=== PATIENT | male | born 1970 | race Caucasian/White ===

== ENCOUNTER → 2025-03-14 15:11 | Outpatient (BNVA) | payer OTHER, SELFPAY | PROVIDERS: PCP Internal Medicine; Visit Provider Physician Assistant Medical | DX: S66.106A Unspecified injury of flexor muscle, fascia and tendon of right little finger at wrist and hand level, initial encounter (principal); X50.3XXA Overexertion from repetitive movements, initial encounter | CPT/HCPCS: 29125; 73130; 99204 ==

== ENCOUNTER → 2025-03-17 11:52 | Outpatient (BNVA) | payer OTHER, SELFPAY | PROVIDERS: PCP Internal Medicine; Visit Provider Physician Assistant Medical | DX: S66.106A Unspecified injury of flexor muscle, fascia and tendon of right little finger at wrist and hand level, initial encounter (principal); X50.3XXA Overexertion from repetitive movements, initial encounter | CPT/HCPCS: 99213 ==

== ENCOUNTER 2025-03-25 12:33 | Outpatient (AMB) | payer OTHER, BC, SELFPAY ==
--- OUTSIDE RECORDS SUMMARY | 2024-06-20 05:00 | XMS_ITS | Encounter Summary ---
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 This section includes the names of all active insurance providers for the patient. Insurance Provider Type of Coverage Plan Name Start of Policy Coverage End of Policy Coverage Group Number Member ID Insurance Provider's Telephone Number Policy Pryor's Name Patient's Relationship to Policy Pryor [facility] CE ORGANIZAT ION SELENA CARMEN L ACTIV E Mar 25, 2021 [id number] [phone] VIVIANE TOLEDO PATIENT BCBS [place] HIGH DEDUCTIBL E HEALTH PLAN SELENA [place] ACTIV E HP Jun 21, 2021 [id number] [phone] VIVIANE TOLEDO PATIENT BCBS [facility] CE ORGANIZ NETWO RK BLUE NEW EN* January 23, 2013 [id number] [phone] VIVIANE TOLEDO PATIENT BCBS [facility] CE ORGANIZ [facility] SHARE ACTIV E January 23, 2013 [id number] VIVIANE TOLEDO PATIENT [employer] ([id number]) PRESCRIPT ION L4TA* January 23, 2013 [id number] VIVIANE TOLEDO PATIENT Selected Encounter This section includes the information on record at [place] for the Encounter. Date/Time Encounter Type Encounter Description Reason Provider Source Jun 20, 2024 09:00 AM OFFICE O/P EST MOD 30 MIN PRIMARY CARE/MEDICINE ICD-10-CM C67.9 Malignant neoplasm of bladder, unspecified VAL SWANSON Lyssa Encounter Template Text not used by [place] Assessments - Encounter Diagnoses This section includes the primary and secondary diagnoses documented for the Encounter. Date/Time Primary/Secondary Diagnosis Diagnosis Name Provider Source Jul 10, 2024 03:26 PM PRIMARY Malignant neoplasm of bladder, unspecified VAL SWANSON [facility] Jul 10, 2024 03:26 PM SECONDARY Essential (primary) hypertension VAL SWANSON [facility] Jul 10, 2024 03:26 PM SECONDARY Mixed hyperlipidemia VAL SWANSON [facility] Jul 10, 2024 03:26 PM SECONDARY Obesity, unspecified VAL SWANSON [facility] Jul 10, 2024 03:26 PM SECONDARY Tobacco use VAL SWANSON [facility] Plan of Treatment: Future Appointments (+ 6 months) and Future Tests (+/- 45 days) The Plan of Treatment section includes future care activities for the patient from all [place] [facility] This section includes future appointments and future orders which are active, pending or scheduled. Future Appointments This section includes appointments that were scheduled to occur 6 months from the date of the Encounter, up to a maximum of 20 appointments. The data comes from all [place] treatment [facility]. Appointment Date/Time Appointment Type Appointme nt Facility Name Jul 01, 2024 10:00 AM AMBULATORY - NONE [place] [facility] [place] [facility] Aug 15, 2024 02:15 PM AMBULATORY - MEDICINE [place] [facility] [place] [facility] Dec 18, 2024 09:00 AM AMBULATORY - MEDICINE [facility] Active, Pending, and Scheduled Orders This section includes a listing of several types of active, pending, and scheduled orders, including clinic medications orders, diagnostic test orders, procedure orders and consult orders; where the start date of the order is 45 days before the date of the Encounter or 45 days after the date of theEncounter. The data comes from all [place] treatment facilities. Test Date/Time Test Type Test Details Facility Name Jun 20, 2024 12:12 PM Consult Order COMMUNITY CARE-COLONOSCOPY SCREENING Cons [place] [employer] [facility] Choice [facility] Lab Results: +/- 30 days of the encounter This section includes the Chemistry and Hematology Lab Results on record with [place] for the patient. Radiology Reports and Pathology Reports are provided separately, in subsequent sections. Lab Results This section contains the Chemistry/Hematology Results that were resulted 30 days before or 30 daysafter the date of the Encounter. Date/Time Source Result Type Result - Unit Interpretation Reference Range Specimen Type Comment Jun 13, 2024 07:47 AM [facility] PSA SERUM Specimen Type: SERUM No comment entered. Ordering Provider: VAL SWANSON Report Released Date/Time: Dec 20, 2023 05:37 AM Reporting Lab: [address] [address] Performing Lab: [address] [address] PSA 1.06 ng/mL 0.00-4.00 Jun 13, 2024 07:47 AM [facility] TSH SERUM Specimen Type: SERUM No comment entered. Ordering Provider: VAL SWANSON Report Released Date/Time: Dec 20, 2023 05:37 AM Reporting Lab: [facility] [address] [facility] [address] Performing Lab: [address] [address] TSH 2.72 u[IU]/mL 0.35-5.00 Jun 13, 2024 07:47 AM [facility] HEMOGLOBIN A1C PANEL BLOOD Specimen Type: BLO OD Comment: Values obtained from A1C measurements can vary. For atypical A1C assays, a reported value of 7.0 could actually be between 6.72 and 7.28 if measured by a reference method. A reported value of 9.0 could actually be between 8.73 and 9.27. Ref: http://www.ngsp.org/[email or web address] Ordering Provider: VAL SWANSON Report Released Date/Time: Dec 20, 2023 05:37 AM Reporting Lab: [facility] [place] [facility] [address] [facility] [phone] Performing Lab: [place] [facility] [place] [facility] [address] [facility] [address] HEMOGLOBIN A1C 5.5 4.0-5.6 Jun 13, 2024 07:47 AM [facility] LIVER FUNCTION SERUM Specimen Type: SERUM No comment entered. Ordering Provider: VAL SWANSON Report Released Date/Time: Dec 20, 2023 05:37 AM Reporting Lab: [facility] [address] [facility] [phone] Performing Lab: [facility] [address] [address] PROTEIN,TOTAL 7.1 g/dL 6.0-8.3 ALBUMIN 4.2 g/dL 3.5-5.0 ALKALINE PHOSPHATASE 67 U/L 40-150 AST 16 U/L 5-34 ALT 24 U/L BILIRUBIN, TOTAL 0.4 mg/dL 0.2-1.2 Jun 13, 2024 07:47 AM [facility] LIPID PANEL FASTING SERUM Specimen Type: SERU M No comment entered. Ordering Provider: VAL SWANSON Report Released Date/Time: Dec 20, 2023 05:37 AM Reporting Lab: [facility] [place] [facility] [address] [facility] [facility] [address] Performing Lab: [facility] [address] [facility] [address] CHOLESTEROL 180 mg/dL TRIGLYCERIDE 180 mg/dL H 0-150 LDL calculated 107 mg/dL 0-129 CHOL/HDL 4.9 HDL CHOLESTEROL 37 mg/dL L 40-60 Jun 13, 2024 07:47 AM [facility] BASIC METABOLIC PANEL (fasting) SERUM Specime n Type: SERUM No comment entered. Ordering Provider: VAL SWANSON Report Released Date/Time: Dec 20, 2023 05:37 AM Reporting Lab: [facility] [address] [facility] [address] Performing Lab: [facility] [address] [facility] [address] UREA NITROGEN 14 mg/dL 7-25 GLUCOSE 105 mg/dL H 65-100 SODIUM 137 mmol/L 135-145 POTASSIUM 4.6 mmol/L 3.5-5.0 CHLORIDE 104 mmol/L 100-110 CO2 23 meq/L 20-30 CREATININE, Serum 0.86 mg/dL 0.50-1.40 eGFR(CKD-EPI 2020) >90 mL/min >60 Jun 13, 2024 07:47 AM [facility] CBC AND DIFF (AUTO) BLOOD Specimen Type: BLOO D No comment entered. Ordering Provider: VAL SWANSON Report Released Date/Time: Dec 20, 2023 05:37 AM Reporting Lab: [facility] [address] [facility] [address] Performing Lab: [address] [address] WBC 6.55 10*3/uL 4.50-11.00 RBC 5.50 10*6/uL 4.23-5.66 HGB 15.6 g/dL 12.8-17 HCT 47.9 39.2-50.4 MCV 87.1 fL 82-99 MCHC 32.6 g/dL 30.8-35.1 PLT 196 10*3/uL 140-360 RDW-CV 14.9 12.0-16.0 MONO, ABS 0.59 10*3/uL 0.30-1.10 MCH 28.4 pg 26.2-32.6 NEUT % 56.6 43.7-75.8 LYMPH % 31.3 14.0-42.3 MONO % 9.0 5.1-13.7 EOS % 2.0 0.4-6.8 BASO % 0.8 0.1-2.0 NEUT, ABS 3.71 10*3/uL 2.20-7.60 LYMPH, ABS 2.05 10*3/uL 1.00-3.20 EOS, ABS 0.13 10*3/uL 0.03-0.44 BASO, ABS 0.05 10*3/uL 0.01-0.13 IMMATURE GRAN % 0.3 0.0-0.7 IMMATURE GRAN, ABS 0.02 10*3/uL 0.00-0.0 6 NRBC % 0.0 0.0-0.0 NRBC, ABS 0.00 10*3/uL 0.00-0.00 Social History: Smoking Status (Most current) and Tobacco Use (All prior to encounter date) This section includes the most current, and the historical, smoking and tobacco- related health factors from the [place] facility where the Encounter took place. Current Smoking Status This section includes the most current smoking, or tobacco-related health factor, from the [place] facility where the Encounter took place. Date/Time Current Smoking Status Comment Facil ity Jun 20, 2024 09:00 AM VA-TOBACCO FORMER USER [facility] Tobacco Use History This section includes a history of the smoking, or tobacco-related health factors, that were collected on or before the date of the Encounter. The data comes from the [place] facility where the Encounter took place. 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 [facility] 27, 2023 01:00 PM VA-TOBACCO USE MED NO [facility] Jun 21, 2023 01:00 PM VA-TOBACCO USE WI 30 MIN OF WAKEUP [facility] 27, 2023 01:00 PM VA-TOBACCO USER EVERY DAY [facility] May 19, 2022 09:30 AM VA-TOBACCO DOESNT USE WI 30 MIN WAKEUP [facility] May 19, 2022 09:30 AM VA-TOBACCO USE > 1 5 LESS THAN 30 YEARS [facility] May 19, 2022 09:30 AM VA-TOBACCO USE ADVICE [facility] May 19, 2022 09:30 AM 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 [facility] May 19, 2022 09:30 AM VA-TOBACCO USE MED NO [facility] May 19, 2022 09:30 AM VA-TOBACCO USER SOME DAYS [facility] May 20, 2021 09:30 AM VA-TOBACCO USE > 1 5 LESS THAN 30 YEARS [facility] May 20, 2021 09:30 AM VA-TOBACCO USE ADVICE [facility] May 20, 2021 09:30 AM 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 [facility] May 20, 2021 09:30 AM VA-TOBACCO USE MED NO [facility] May 20, 2021 09:30 AM VA-TOBACCO USE WI 30 MIN OF WAKEUP [facility] May 20, 2021 09:30 AM VA-TOBACCO USER EVERY DAY [facility] Jun 19, 2018 01:47 PM CURRENT SMOKER [facility] Jun 19, 2018 01:47 PM V1-PT NOT INTEREST ED IN QUIT TOBACCO USE [facility] Nov 22, 2017 09:29 AM CURRENT SMOKER 1/2 pack - 1 pack daily [facility] Nov 22, 2017 09:29 AM V1-PT NOT INTEREST ED IN QUIT TOBACCO USE [facility] May 15, 2017 08:48 AM CURRENT SMOKER 1/2-1 pack daily, started at age 23 [facility] May 15, 2017 08:48 AM V1-PT NOT INTEREST ED IN QUIT TOBACCO USE [facility] May 13, 2016 01:05 PM V1-PT NOT INTEREST ED IN QUIT TOBACCO USE [facility] Sep 14, 2015 01:52 PM CURRENT SMOKER smokes about a ppd of cigaretts [facility] Sep 14, 2015 01:52 PM V1-PT NOT INTEREST ED IN QUIT TOBACCO USE [facility] Jul 03, 2014 08:37 AM [facility], [facility] 08:37 AM V1-PT DECLINES REF TO TOBACCO CESS [facility] Jul 03, 2014 08:37 AM V1-PT DECLINES TOB ACCO CESSATION [facility] Jul 03, 2014 08:37 AM V1-PT NOT INTEREST ED IN QUIT TOBACCO USE [facility] Mar 08, 2013 02:36 PM CURRENT SMOKER Pt. satted he smokes a pack a day. [facility] Mar 08, 2013 02:36 PM V1-PT DECLINES REF TO TOBACCO CESS [facility] Mar 08, 2013 02:36 PM V1-PT [facility]CLINES [facility]B [facility] Mar 08, 2013 02:36 PM V1-PT NOT INTEREST ED IN QUIT TOBACCO USE [facility] Nov 17, 2005 10:05 AM CURRENT SMOKER [facility] Nov 17, 2004 10:10 AM CURRENT SMOKER 1ppd x 10yrs [facility] Jan 04, 2002 09:45 AM CURRENT SMOKER 1 pack weekly...smoking 6-7 years [facility] Encounter Notes: All associated encounter notes This section contains the clinical notes associated to the Encounter. Date/Time Encounter Note(s) Provider Source Jun 20, 2024 09:01 AM PREVENTIVE MEDICIN E NURSING NOTE: LOCAL TITLE: CLINICAL REMINDERS/NURSING STANDARD TITLE: PREVENTIVE MEDICINE NURSING NOTE DATE OF NOTE: JUN 20, 2024@09:01 ENTRY DATE: JUN 20, 2024@09:01:05 AUTHOR: GABRIEL HARRIS COSIGNER: URGENCY: STATUS: COMPLETED Advance Directive Screen MH AD: Patient does not have a completed advance directive on file at any facility, VA or outside. S/he is not interested in completing one at this time. The patient received education about Advance Directives and written notification of his/her rights. Suicide Screen: C-SSRS Screening [place] Suicide Severity Rating Scale (C-SSRS) screener 1. Over the past month, have you wished you were or wished you could go to sleep and not wake up? No 2. Over the past month, have you had any actual thoughts of killing yourself? No 3. Over the past month, have you been thinking about how you might do this? Response not required due to responses to other questions. 4. Over the past month, have you had these thoughts and had some intention of acting on them? Response not required due to responses to other questions. 5. Over the past month, have you started to work out or worked out the details of how to kill yourself? Response not required due to responses to other questions. 6. If yes, at any time in the past month did you intend to carry out this plan? Response not required due to responses to other questions. 7. In your lifetime, have you ever done anything, started to do anything, or prepared to do anything to end your life (for example, collected pills, obtained a gun, gave away valuables, went to the roof but didn't jump)? No 8. If YES, was this within the past 3 months? Response not required due to responses to other questions. Depression Screening: Perform PHQ-2 A PHQ-2 screen was performed. The score was 0 which is a negative screen for depression. Over the past two weeks, how often have you been bothered by the following problems? 1. Little interest or pleasure in doing things Not at all 2. Feeling down, depressed, or hopeless Not at all Tobacco Use Screening: The patient is a former tobacco user. The patient quit one to less than 5 years ago. Influenza Immunization: Deferral / Refusal The patient declines to receive the recommended dose of seasonal influenza vaccine. Immunization: INFLUENZA, UNSPECIFIED FORMULATION Refusal Reason: PATIENT DECISION Patient refuses all immunization(s) in the FLU group Date Documented: 06/20/24 09:02 Alcohol Use Screen (AUDIT-C): Alcohol Screen: SCREEN FOR ALCOHOL (AUDIT-C) An alcohol screening test (AUDIT-C) was negative (score=0). 1. How often did you have a drink containing alcohol in the past year? Consider a drink to be a 12 ounce can or bottle of regular beer, 8 ounces of malt liquor, a 5 ounce glass of table wine, or a 1.5 ounce shot of liquor (like scotch, gin, or vodka). Never 2. How many drinks containing alcohol did you have on a typical day when you were drinking in the past year? Response not required due to responses to other questions. 3. How often did you have six or more drinks on one occasion in the past year? Response not required due to responses to other questions. COVID-19 Immunization: Referred to another clinic for immunization (desired vaccine unavailable at this location) Herpes Zoster (Shingles) Vaccine: The patient declines to receive the recommended dose of zoster (shingles) vaccine. Immunization: ZOSTER RECOMBINANT Refusal Reason: PATIENT DECISION Patient refuses all immunization(s) in the ZOSTER group Date Documented: 06/20/24 09:02 /isaías/ GABRIEL HARRIS LPN PACT 10 Signed: 06/20/2024 09:03 GABRIEL HARRIS [facility] Jun 20, 2024 06:08 AM PHYSICIAN NOTE: LOCAL TITLE: MD NOTE STANDARD TITLE: PHYSICIAN NOTE DATE OF NOTE: JUN 20, 2024@06:08 ENTRY DATE: JUN 20, 2024@06:08:16 AUTHOR: VAL SWANSON EXP COSIGNER: URGENCY: STATUS: COMPLETED HISTORY OF PRESENT ILLNESS: VIVIANE Pinedo TRE is a 53 yo MALE who presents at the [facility] for his annual wellness exam. Labs completed. 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 Active problems - Computerized Problem List is the source for the followin. Bladder Cancer 2. Colonoscopy Screening 3. Prediabetes 4. Obesity 5. Tobacco dependence in remission 6. History Right Ankle Fracture 7. Mixed hyperlipidemia 8. Hypertension 9. Squamous Cell Carcinoma The following VA and Non-VA meds were reconciled with patient: Active Outpatient Medications (including Supplies): Issue Date Status Last Fill Active Outpatient Medications Refills Expiration ======= 1) ATORVASTATIN CALCIUM 80MG TAB Qty: 45 ACTIVE Issu:12-20-23 for 90 days Sig: TAKE ONE-HALF TABLET Refills: 2 Last:04-07-24 BY MOUTH AT BEDTIME FOR CHOLESTEROL Expr:12-20-24 2) DILTIAZEM (EQV-TIAZAC) 240MG 24HR CAP ACTIVE Issu:10-03-23 Qty: 90 for 90 days Sig: TAKE ONE Refills: 1 Last:04-07-24 CAPSULE BY MOUTH DAILY Expr:10-03-24 3) LISINOPRIL 10MG TAB Qty: 90 for 90 days ACTIVE Issu:12-20-23 Sig: TAKE ONE TABLET BY MOUTH ONCE Refills: 2 Last:04-25-24 DAILY TO CONTROL BLOOD PRESSURE Expr:12-20-24 Start Date Active Non-VA Medications Refills Expiration ======= 1) Non-VA CHOLECALCIF 25MCG (D3-1,000UNIT) ACTIVE TAB SiMCG BY MOUTH ONCE DAILY 2) Non-VA FISH OIL 1000MG (500MG DHA/EPA) ACTIVE CAP SiMG BY MOUTH ONCE DAILY 5 Total Medications ALLERGIES: ========= Patient has answered [facility] LAB HISTORY: CHEM 7 TREND Collection DT Spec GLUCOSE BUN CREATIN Sodium K+/Pot CL CO2 06/13/2024 07:47 SERUM 105 H 14 0.86 137 4.6 104 23 12/14/2023 07:31 SERUM 119 H 19 0.83 138 4.3 104 25 06/14/2023 07:49 SERUM 113 H 15 0.82 138 4.4 107 23 11/17/2022 08:01 SERUM 115 H 05/12/2022 07:37 SERUM 117 H 16 0.77 137 4.1 104 25 CBC TREND Collection DT Spec WBC RBC HGB HCT MCV MCH PLT 06/13/2024 07:47 BLOOD 6.55 5.50 15.6 47.9 87.1 28.4 196 06/14/2023 07:49 BLOOD 7.40 5.16 15.9 47.9 92.8 30.8 188 05/12/2022 07:37 BLOOD 9.37 4.57 14.2 42.8 93.7 31.1 194 05/12/2021 07:45 BLOOD 7.67 4.90 15.2 45.7 93.3 31.0 203 04/01/2020 07:54 BLOOD 9.65 5.07 15.7 47.4 93.5 31.0 185 HEMOGLOBIN A1C TREND Collection DT Spec HGBA1c 06/13/2024 07:47 BLOOD 5.5 12/14/2023 07:31 BLOOD 5.8 H 06/14/2023 07:49 BLOOD 5.8 H 11/17/2022 08:01 BLOOD 5.9 H 05/12/2022 07:37 BLOOD 5.6 LIPID PANEL TREND Collection DT Spec CHOL HDL CHO/HDL LDL-d LDL-c TRIG 06/13/2024 07:47 SERUM 180 37 L 4.9 107 180 H 12/14/2023 07:31 SERUM 160 32 L 5.0 85 213 H 06/14/2023 07:49 SERUM 155 32 L 4.8 89 171 H 11/17/2022 08:01 SERUM 151 38 L 4.0 85 139 05/12/2022 07:37 SERUM 209 H 35 L 6.0 155 H 96 LIVER PANEL TREND Collection DT Spec AST ALT T BILI ALK SHANE T. PROT ALBUMIN 06/13/2024 07:47 SERUM 16 24 0.4 67 7.1 4.2 12/14/2023 07:31 SERUM 17 32 0.4 71 7.1 4.2 06/14/2023 07:49 SERUM 18 36 0.4 62 6.9 4.2 11/17/2022 08:01 SERUM 21 49 0.4 61 7.0 4.2 05/12/2022 07:37 SERUM 18 36 0.3 68 7.0 3.8 Collection DT Spec TSH 06/13/2024 07:47 SERUM 2.72 HISTORY: PERIOD OF SERVICE - [facility] [employer] FROM Jul TO May COMBAT SERVICE INDICATED: No VITAL SIGNS: Blood Pressure 129/82 (06/20/2024 09:00) Pulse 85 (06/20/2024 09:00) Respiration 16 (06/20/2024 09:00) Pulse Oximetry 97% (06/20/2024 09:00) Temperature 98.3 F [36.8 C] (06/20/2024 09:00) Pain 0 (06/20/2024 09:00) Height 72 in [182.9 cm] (06/20/2024 09:00) Weight 257 lb [116.57 kg] (06/20/2024 09:00) BMI BMI: 34.9 REVIEW OF SYSTEMS: CARDIOVASCULAR: No chest pain, no palpitations RESPIRATORY: No SOB, no wheezing GASTROINTESTINAL: No abd pain, no N/V/D GENITOURINARY: No urinary symptoms MUSCULOSKELETAL: No joint pain PSYCHIATRIC: No anxiety, no depression NEUROLOGIC: No H/A, no numbness, no weakness EXAMINATION: GENERAL: WD/WN in NAD HEENT: Moist mucosa NECK: Supple, no LN's, no carotid bruits HEART: RRR, S1-S2, no murmurs LUNGS: CTA B/L ABDOMEN: Soft, NT/ND, + BS x 4 Quads PERIPH PULSES: 2+ B/L EXTREMITIES: FROM x 4, no edema NEUROLOGIC: AAO x3, no focal findings PSYCHIATRIC: Good eye contact, affect normal ASSESSMENT/PLAN: Adult Annual General Wellness Exam -advised eye exams annually and dental exams Q6 mths -advised regular CV exercise for 30 mins for most days of the week -advised heart healthy well-balanced diet and lifestyle habits 1. Bladder CA: presented w/gross hematuria 12/23/23, s/p bladder tumor resection 01/2024, receiving BCG instillations - started 05/21/24, managed by Dr Whitaker - PVU MRI abdomen with and w/o completed 05/14/24 at [facility]: IMPRESSION: Small mildly T2 hyperintense hepatic lesions with variable enhancement kinetics as above, a few of which likely represent benign hemangiomas, while others may represent sclerosing/sclerosed hemangiomas or potentially small metastatic lesions. Evaluation is limited by respiratory motion artifact and the small size of the abnormalities. Direct comparison is difficult, however these do not appear to have increased appreciably in number or size when compared with December 2023. Correlation with any prior imaging of the abdomen would be useful to document stability, and in the absence of prior imaging, further evaluation with PET/CT or repeat MRI of the abdomen in 3 months could be considered. WILL ORDER PET SCAN 2. Squamous Cell CA: left mid dorsal ring finger, s/p MOHS surgery 03/27/[address] [place] [address] Omer 3. Hypertension: well controlled on diltiazem 240mg/day and lisinopril 10mg/day 4. Mixed Hyperlipidemia: with exception of trigs, rest of lipids under good control on atorvastatin 40mg/QHS Collection DT Spec CHOL HDL CHO/HDL LDL-d LDL-c TRIG 06/13/2024 07:47 SERUM 180 37 L 4.9 107 180 H 5. Prediabetes: cont monitering carbs/simple sugars in diet, both parents had DM FBS 105 - A1c 5.5% 6. Obesity: BMI ~35, counseled on weight loss 7. Nicotine Dependence: 1 PPD x 30 yrs, quit early 2023, now vaping 8. Colonoscopy Screening: never, will reschedule FOLLOW UP: 6 mths - Htn/Lipids/PreDM/WT check - FBW prior ========= UPCOMING APPOINTMENTS: 07/01/2024 10:00 CWM/SO/NUTRITION1 No barriers; Patient understands and agrees to current treatment plan. If pt has any questions, concerns, or changes in current health status he/she will call or come in to the VA. BMI>30/>24.99 High Risk: Patient declines to discuss weight management. Patient declined weight discussion. Discussed revisiting at a future visit. Medication Reconciliation: Outpatient: Has the patient been taking medications as documented in the EMLR? YES: The patient has been taking medications as documented in the EMLR. Essential Medication List for Review used to complete this medication reconciliation. INCLUDED IN THIS LIST: Alphabetical list of active outpatient prescriptions dispensed from this VA (local) and dispensed from another [place] or [facility] facility (remote) as well as inpatient orders (local, pending and active), local clinic medications, locally documented non-VA medications, and local prescriptions that have or been discontinued in the past 90 days. - All changes in medications, including all non-VA/Herbal/OTC medications were entered into CPRS. - If there were any medications the patient should no longer take, they were discontinued. - The patient/caregiver was instructed to update this list, discard old lists, and take this list to the next appointment, whether with a VA or non-VA provider. JLV Link Data on this list may not be complete. Please check JLV. Allergies/ADRs (Tool #5) FACILITY ALLERGY/ADR -------- No Remote Allergy/ADR Data available for this patient [place] [facility] [place] [facility] No Known Allergies Med Recon NoGlossary (Tool #1) INCLUDED IN THIS LIST: Alphabetical list of active outpatient prescriptions dispensed from this [facility] (local) and dispensed from another [place] or [place] facility (remote) as well as inpatient orders (local pending and active), local clinic medications, locally documented non-VA medications, and local prescriptions that have or been discontinued in the past 90 days. Non-VA Meds Last Documented On: Apr 15, 2020 NOTE The display of VA prescriptions dispensed from another [place] or [place] facility (remote) is limited to active outpatient prescription entries matched to National Drug File at the originating site and may not include some items such as investigational drugs, compounds, etc. NOT INCLUDED IN THIS LIST: Medications self-entered by the patient into personal health records (i.e. [employer]) are NOT included in this list. Non-VA medications documented outside this [place], remote inpatient orders (regardless of status) and remote clinic medications are NOT included in this list. The patient and provider must always discuss medications the patient is taking, regardless of where the medication was dispensed or obtained. ------ OUTPT ATORVASTATIN CALCIUM 80MG TAB (Status = Active) TAKE ONE-HALF TABLET BY MOUTH AT BEDTIME FOR CHOLESTEROL Rx# [id number] Last Released: 04/05/24 Qty/Days Supply: Rx Expiration Date: 12/20/24 Refills Remainin Non-VA CHOLECALCIF 25MCG (D3-1,000UNIT) TAB TAKE ONE TABLET BY MOUTH ONCE DAILY Apr 15, 2020 Patient wants to buy from Non-[place] pharmacy. OUTPT DILTIAZEM (EQV-TIAZAC) 240MG 24HR CAP (Status = Active) TAKE ONE CAPSULE BY MOUTH DAILY Rx# [id number] Last Released: 04/05/24 Qty/Days Supply: Rx Expiration Date: 10/03/24 Refills Remainin Non-VA FISH OIL 1000MG (500MG DHA/EPA) CAP TAKE 2 CAPSULES BY MOUTH ONCE DAILY Apr 15, 2020 Patient wants to buy from Non-[place] pharmacy. OUTPT LISINOPRIL 10MG TAB (Status = Active) TAKE ONE TABLET BY MOUTH ONCE DAILY TO CONTROL BLOOD PRESSURE Rx# [id number] Last Released: 04/17/24 Qty/Days Supply: Rx Expiration Date: 12/20/24 Refills Remainin Indication: FOR HIGH BLOOD PRESSURE ------ SUPPLIES ------ Avg Risk Colorectal Cancer Screen: AVERAGE RISK colorectal cancer screening is due based on information available to this clinical reminder Screening is due now. Colonoscopy consult has been ordered. See orders tab for details. /isaías/ VAL SWANSON MD Primary Care Physician Signed: 06/20/2024 09:48 VAL SWANSON [place]
--- NOTE | 2025-03-25 12:59 | MHC.OFFVIS ---
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 States while he was rebuilding a fender on a ambulance, he felt a pop, burning and feels like a tendon is making his small finger contract inward towards his palm. He also states he has no feeling/ numbness on his ulna aspect of hand since date of injury. Seen at work connection where he was given a splint to use to help decrese his swelling. Currently states he still feels and is able to see tightness on his small finger. Hx of index finger MCP nerve repair approx 2012. 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 States while he was rebuilding a fender on a ambulance, he felt a pop, burning and feels like a tendon is making his small finger contract inward towards his palm. He also states he has no feeling/ numbness on his ulna aspect of hand since date of injury. Seen at work connection where he was given a splint to use to help decrese his swelling. Currently states he still feels and is able to see tightness on his small finger. Hx of index finger MCP nerve repair approx 2012. 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 Normal sensation to all other digits in the right hand today. Normal sensation in the tips of all digits of the left hand today. No thenar or intrinsic wasting. Good APB muscle firing and good finger cross. Vascular: Capillary refill brisk. ROM: Patient can make a fist and extend all their digits. Skin: No lacerations or abrasions noted. Small nodule consistent with Dupuytren's nodule noted over the 5th metacarpal shaft General: No ecchymosis. No erythema or evidence of infection. Assessment & Plan Assessment & Plan (1) Injury of ulnar nerve at wrist and hand level of right arm, initial encounter: Code(s): S64.01XA - Injury of ulnar nerve at wrist and hand level of right arm, initial encounter Category: Medical Plan 1. Numbness and tingling of the right hand after an injury Date of injury 03/14/25 Patient is educated about his injury Patient is educated about the typical recovery course At this time, urgent EMG and nerve conduction study is ordered to assess the health of the nerves of the right hand Follow-up after EMG and nerve conduction study for results review and discussion of further treatment if indicated Patient is amenable to this plan Orders: Orders NE electromyogram (EMG) Today R20.0 - Anesthesia of skin, R20.2 - Paresthesia of skin NE nerve conduction velocity Today R20.0 - Anesthesia of skin, R20.2 - Paresthesia of skin Coding Level of Care Code New Pt Level 3 (08539) Diagnoses Injury of ulnar nerve at wrist and hand level of right arm, initial encounter S64.01XA
[2025-03-25 13:04] VITALS: BMI 33.2
--- OUTSIDE RECORDS SUMMARY | 2025-03-25 13:26 | XMS_ITS | Encounter Summary ---
Author Organization [facility] Address [address] [place] [address] Care Team Providers Care Unemployment Claims Adjudicator Name Role Phone Physician, Pcp Unknown Primary Care Provider Sharyn vailable Encounter Details Date Type Department Care Team (Late st Contact Info) Description 01/03/2025 Lab Requisition [facility] - Main Lab [address] [place] [address] Hunter James MD [address] [facility] [address] [place] [address] Malignant neoplasm of lateral wall of bladder (CMS/HCC V24, CMS/HCC V28) Social History Tobacco Use Types Packs/Day Years Used Date Smoking Tobacco: Never Assessed Sex and Gender Information Value Date Recorded Sex Assigned at Not on file Legal Sex Male 2:06 PM EST Gender Identity Not on file Sexual Orientation Not on file documented as of this encounter Plan of Treatment Not on file documented as of this encounter Procedures Procedure Name Priority Date/Time Associated Diagnosis Comments AP OUTSIDE CONSULT Routine 12/31/2024 12 :00 AM EDT Malignant neoplasm of lateral wall of bladder (CMS/HCC V24, CMS/HCC V28) documented in this encounter Results * Anatomic pathology outside consult (12/31/2024 12:00 AM EDT) Final Diagnosis A. Urine, Voided, ([id number]): Negative for high grade urothelial carcinoma. Results of Uro[employer] fluorescence in situ hybridization (FISH) testing: CEP3: Normal CEP7: Normal CEP17: Normal LSI 9p21: Normal Interpretation: Normal profile Controls stained appropriately. Note: The results are intended as a screening device and should be interpreted in association with other clinical and pathological findings. 01/07/2025 4:35 PM EDT [facility] Clinical Information Malignant neoplasm of lateral wall of bladder C67.2 Urine Cytology/FISH (now) 01/07/2025 4:35 PM EDT [facility] Gross Description A. Urine, Voided, ([id number]): Received one ThinPrep slide for cytology and one ThinPrep slide for UroVysion FISH 01/07/2025 4:35 PM EDT [facility] Disclaimer Unless otherwise specified, all tissue is 10% NB formalin fixed and paraffin embedded. Technical pathology services provided by [facility] at [address] [place] [address] [address], [place] [address] (CLIA #[id number]/Galilea Delacruz MD, Registered Public Surveyor) 01/07/2025 4:35 PM EDT [facility] Tissue Urine specimen from urethra / Unknown 12/31/2024 01/03/2025 1:26 PM EDT us Hunter James MD LAB PATHOLOGY ORDERABLES Final Result [facility] [address] [place] [address], documented in this encounter Visit Diagnoses Diagnosis Malignant neoplasm of lateral wall of bladder (CMS/HCC V24, CMS/HCC V28) Malignant neoplasm of lateral wall of urinary bladder documented in this encounter Care Teams Unemployment Claims Adjudicator Relationship Specialty Start Date End Date Physician, Pcp Unknown PCP - General 01/03/25 documented as of this encounter
== END 2025-03-25 13:21 | disposition home or self-care (01) ==
PROVIDERS: PCP Internal Medicine
DX: S64.01XA Injury of ulnar nerve at wrist and hand level of right arm, initial encounter (principal)
CPT/HCPCS: 99203

== ENCOUNTER → 2025-03-25 12:33 | Outpatient (BNVA) | payer OTHER, SELFPAY | PROVIDERS: PCP Internal Medicine | DX: S64.01XA Injury of ulnar nerve at wrist and hand level of right arm, initial encounter (principal) | CPT/HCPCS: 99202 ==

== ENCOUNTER 2025-05-21 08:40 | Outpatient (REF) | payer OTHER, BC, SELFPAY ==
--- OUTSIDE RECORDS SUMMARY | 2024-07-01 06:00 | XMS_ITS ---
[place] MED NUTRITION IN[place] SUBSEQ [place] Encounter Summary Created on: May 21, 2025 VIVIANE TOLEDO : 1970 Sex: Male Author Name [facility] [facility] [place] Address [address] [place] [address] Care Team Providers Care Media Strategist Name Role Phone VAL SWANSON Primary Care [...] Name Patient's Relationship to Policy P[place] MARGIE MICHAEL OF [facility] CE ORGANIZAT ION SELENA CARMEN L ACTIV E Mar 25, 2021 [id number] [phone] VIVIANE TOLEDO PATIENT BCBS AR H[employer] DEDUCTIBL E HEALTH PLAN [place] ACTIV E [facility] Jun 21, 2021 [id number] VIVIANE TOLEDO PATIENT BCBS [facility] CE ORGANIZ NETWO RK BLUE NEW EN* January 23, 2013 [id number] VIVIANE TOLEDO PATIENT BCBS [facility] CE ORGANIZ [facility] SHARE ACTIV E January 23, 2013 [id number] VIVIANE TOLEDO PATIENT [employer] ([id number]) PRESCRIPT ION L4TA* January 23, 2013 [id number] VIVIANE TOLEDO PATIENT Selected Encounter This section includes the information on record at [place] for the Encounter. Date/Time Encounter Type Encounter Description Reason Provider Source Jul 01, 2024 10:00 AM MED NUTRITION INDIV SUBSEQ NUTRITION/DIETETIC S-INDIVIDUAL ICD-10-CM E66.09 Other obesity due to excess calories JESS CARNEY [facility] Encounter Template Text not used by [place] Assessments - Encounter Diagnoses This section includes the primary and secondary diagnoses documented for the Encounter. Date/Time Primary/Secondary Diagnosis Diagnosis Name Provider Source Jul 16, 2024 05:24 PM PRIMARY Other obesity due to excess calories JESS CARNEY [place] Jul 16, 2024 05:24 PM SECONDARY Body mass index [BMI] 35.0-35.9, adult JESS CARNEY [place] Jul 16, 2024 05:24 PM SECONDARY Dietary counseling and surveillance JESS CARNEY [place] Jul 16, 2024 05:24 PM SECONDARY Prediabetes JESS CARNEY [place] Plan of Treatment: Future Appointments (+ 6 months) and Future Tests (+/- 45 days) The Plan of Treatment section includes future care activities for the [facility] [place] [facility] This section includes future appointments and future orders which are active, pending or scheduled. Future Appointments This section includes appointments that were scheduled to occur 6 months from the date of the Encounter, up to a maximum of 20 appointments. The data comes from all [place] treatment facilities. Appointment Date/Time Appointment Type Appointme nt Facility Name Aug 15, 2024 02:15 PM [facility] [place] [facility] Dec 18, 2024 09:00 AM AM[place]ULATORY - MEDICINE [place] [facility] Dec 30, 2024 10:00 AM AMBULATORY - NONE [facility] Lab Results: +/- 30 days of the encounter This section includes the Chemistry and Hematology Lab Results on record with [place] for the patient. Radiology Reports and Pathology Reports are provided separately, in subsequent sections. Lab Results This section contains the Chemistry/Hematology Results that were resulted 30 days before or 30 daysafter the date of the Encounter. Date/Time Source Result Type Result - Unit Interpretation Reference Range Specimen Type Comment Jun 13, 2024 07:[address] [facility] [place] [facility] TSH SERUM Specimen Type: SERUM No comment entered. Ordering Provider: VAL SWANSON Report Released Date/Time: Dec 20, 2023 05:37 AM Reporting Lab: [place] [facility] [address] [facility] [phone] Performing Lab: [facility] [place] [facility] [address] [address] TSH 2.72 u[IU]/mL 0.35-5.00 Jun 13, 2024 07:[address] [facility] [address] [facility] PSA SERUM Specimen Type: SERUM No comment entered. Ordering Provider: VAL SWANSON Report Released Date/Time: Dec 20, 2023 05:37 AM Reporting Lab: [place] [facility] [address] [facility] [phone] Performing Lab: [facility] [address] [facility] [address] PSA 1.06 ng/mL 0.00-4.00 Jun 13, 2024 07:47 AM [facility] HEMOGLOBIN A1C PANEL BLOOD Specimen Type: BLO [...] Dec 20, 2023 05:37 AM Reporting Lab: [facility] [place] [facility] [address] [facility] [facility] [address] Performing Lab: [facility] [address] [facility] [address] HEMOGLOBIN A1C 5.5 4.0-5.6 Jun 13, 2024 07:[address] [facility] LIPID PANEL FASTING SERUM Specimen Type: SERU M No comment entered. Ordering Provider: VAL SWANSON Report Released Date/Time: Dec 20, 2023 05:37 AM Reporting Lab: [facility] [address] [facility] [address] Performing Lab: [address] [address] CHOLESTEROL 180 mg/dL TRIGLYCERIDE 180 mg/dL H 0-150 LDL calculated 107 mg/dL 0-129 CHOL/HDL 4.9 HDL CHOLESTEROL 37 mg/dL L 40-60 Jun 13, 2024 07:47 AM [facility] LIVER FUNCTION SERUM Specimen Type: SERUM No comment entered. Ordering Provider: VAL SWANSON Report Released Date/Time: Dec 20, 2023 05:37 AM Reporting Lab: [address] [address] Performing Lab: [address] [address] PROTEIN,TOTAL 7.1 g/dL 6.0-8.3 ALBUMIN 4.2 g/dL 3.5-5.0 ALKALINE PHOSPHATASE 67 U/L 40-150 AST 16 U/L 5-34 ALT 24 U/L BILIRUBIN, TOTAL 0.4 mg/dL 0.2-1.2 Jun 13, 2024 07:47 AM [facility] BASIC METABOLIC PANEL (fasting) SERUM Specime n Type: SERUM No comment entered. Ordering Provider: VAL SWANSON Report Released Date/Time: Dec 20, 2023 05:37 AM Reporting Lab: [address] [address] Performing Lab: [address] [phone] UREA NITROGEN 14 mg/dL 7-25 GLUCOSE 105 mg/dL H 65-100 SODIUM 137 mmol/L 135-145 POTASSIUM 4.6 mmol/L 3.5-5.0 CHLORIDE 104 mmol/L 100-110 CO2 23 meq/L 20-30 CREATININE, Serum 0.86 mg/dL 0.50-1.40 eGFR(CKD-EPI 2020) >90 mL/min >60 Jun 13, 2024 07:47 AM [facility] CBC AND DIFF (AUTO) BLOOD Specimen Type: BLOO D No comment entered. Ordering Provider: VAL SWANSON Report Released Date/Time: Dec 20, 2023 05:37 AM Reporting Lab: [facility] [address] [facility] [address] Performing Lab: [facility] [address] [facility] [address] WBC 6.55 10*3/uL 4.50-11.00 RBC 5.50 10*6/uL [...] and tobacco- related health factors from the [place] facility where the Encounter took place. Current Smoking Status This section includes the most current smoking, or tobacco-related health factor, from the [place] facility where the Encounter took place. Date/Time Current Smoking Status Comment Facil ity Jun 20, 2024 09:00 AM VA-TOBACCO FORMER USER [place] Tobacco Use History This section includes a history of the smoking, or tobacco-related health factors, that were collected on or before the date of the Encounter. The data comes from the [place] facility where the Encounter took place. Date/Time Smoking Status/Tobacco Use Comment F acility Jun 20, 2024 09:00 AM VA-TOBACCO QUIT 1 TO < 5 YRS [place] Jun 21, 2023 01:00 PM VA-TOBACCO USE 30 YEARS OR MORE [place] Jun 21, 2023 01:00 PM VA-TOBACCO USE ADVICE [place] Jun 21, 2023 01:00 PM VA-TOBACCO USE NURSE SPECIALIST NO [place] Jun 21, 2023 01:00 PM VA-TOBACCO USE MED NO [place] Jun 21, 2023 01:00 PM VA-TOBACCO USE [place] 30 MIN OF [facility] 27, 2023 01:00 PM VA-TOBACCO USER EVERY DAY [place] May 19, 2022 09:30 AM VA-TOBACCO DOESNT USE WI 30 MIN [facility] May 19, 2022 09:30 AM VA-TOBACCO USE > 1 5 LESS THAN 30 YEARS [place] May 19, 2022 09:30 AM VA-TOBACCO USE ADVICE [place] May 19, 2022 09:30 AM VA-TOBACCO USE NURSE SPECIALIST NO [place] May 19, 2022 09:30 AM VA-TOBACCO USE MED [facility] May 19, 2022 09:30 AM VA-TOBACCO USER SOME DAYS [place] May 20, 2021 09:30 AM VA-TOBACCO USE > 1 5 LESS THAN 30 YEARS [place] May 20, 2021 09:30 AM VA-TOBACCO USE ADVICE [place] May 20, 2021 09:30 AM VA-TOBACCO USE NURSE SPECIALIST NO [place] May 20, 2021 09:30 AM VA-TOBACCO USE MED [facility] May 20, 2021 09:30 AM VA-TOBACCO USE [place] 30 MIN OF [facility] [place] May 20, 2021 09:30 AM VA-TOBACCO USER EVERY DAY [place] Jun 19, 2018 01:47 PM CURRENT SMOKER [facility] Jun 19, 2018 01:47 PM V1-PT NOT INTEREST ED IN QUIT TOBACCO USE [place] Nov 22, 2017 09:29 AM CURRENT SMOKER 1/2 pack - 1 pack daily [place] Nov 22, 2017 09:29 AM V1-PT NOT INTEREST ED IN QUIT TOBACCO USE [place] May 15, 2017 08:48 AM CURRENT SMOKER 1/2-1 pack daily, started at age 23 [place] May 15, 2017 08:48 AM V1-PT NOT INTEREST ED IN QUIT TOBACCO USE [place] May 13, 2016 01:05 PM V1-PT NOT INTEREST ED IN QUIT TOBACCO USE [place] Sep 14, 2015 01:52 PM CURRENT SMOKER smokes about a ppd of cigaretts [place] Sep 14, 2015 01:52 PM V1-PT NOT INTEREST ED IN QUIT TOBACCO USE [place] Jul 03, 2014 08:37 AM [facility]RENT [facility] Jul 03, 2014 08:37 AM V1-PT DECLINES REF TO TOBACCO CESS [facility] Jul 03, 2014 08:37 AM V1-PT DECLINES TOB ACCO CESSATION [facility] Jul 03, 2014 08:37 AM V1-PT NOT INTEREST ED IN QUIT TOBACCO USE [place] Mar 08, 2013 02:36 PM CURRENT SMOKER Pt. satted he smokes a pack a day. [place] Mar 08, 2013 02:36 PM V1-PT DECLINES REF TO TOBACCO CESS [facility] Mar 08, 2013 02:36 PM V1-PT DECLINES TOB ACCO CESSATION [facility] Mar 08, 2013 02:36 PM V1-PT NOT INTEREST ED IN QUIT TOBACCO USE [place] Nov 17, 2005 10:05 AM CURRENT SMOKER [facility] Nov 17, 2004 10:10 AM CURRENT SMOKER 1ppd x 10yrs [place] Jan 04, 2002 09:45 AM CURRENT SMOKER 1 pack weekly...smoking 6-7 years [place] Encounter Notes: All associated encounter notes This section contains the clinical notes associated to the Encounter. Date/Time Encounter Note(s) Provider Source Jul 01, 2024 10:00 AM NUTRITION DIETETIC S NOTE: LOCAL TITLE: NUTRITION PROGRESS NOTE STANDARD TITLE: NUTRITION DIETETICS NOTE DATE OF NOTE: JUL 01, 2024@10:00 ENTRY DATE: JUL 01, 2024@10:19:13 AUTHOR: LUANA CARNEY COSIGNER: URGENCY: STATUS: COMPLETED Reason for Nutrition referral: Impaired Fasting Glucose, Dyslipidemia, Overweight/Obesity Primary Diagnosis: PreDiabetes (R73.03) Secondary Diagnosis: Dietary Surveillance and Counseling (Z71.3) Additional Secondary Diagnosis: Other Obesity due to excess calories (E66.09) Date of Nutrition Referral: 12/20/23 Referred to Nutrition Clinic By: Dr. Swanson Date of Nutrition Visit: Jul 01, 2024 Visit #: 3 Time Spent with Patient: 25 minutes Patient identified using the following two forms of ID: Date of , Patient Full Name NUTRITION ASSESSMENT: Anthropometric Measurements: Ht:72 in [182.9 cm] (12/20/2023 09:44) Wt: 261.4 lb [118.57 kg] (07/01/2024 10:01) Weight History: 267.8 lb 02/26/2024 283.6 lb 01/15/2024 BMI: 35.5 IBW: 178 lb Biochemical Data/Medical Tests: LIPID PANEL TREND Collection DT Spec CHOL HDL CHO/HDL LDL-d LDL-c TRIG 06/13/2024 07:47 SERUM 180 37 L 4.9 107 180 H 12/14/2023 07:31 SERUM 160 32 L 5.0 85 213 H HEMOGLOBIN A1C; BLOOD José Miguel. Date: 06/13/24 07:47 12/14/23 07:31 Test Name Result Units Range HEMOGLOBIN A1C 5.5 5.8 H % 4.0 - 5.6 Recent Blood Pressure (4 months) Measurement DT BP 06/20/2024 09:00 129/82 Nutrition Focused Physical Findings: Appetite: Good Other issues/concerns: None Nutrition-Focused Physical Exam Reminder: A selection MUST be made in The Nutrition-Focused Physical Exam Summary section Body habitus: Android Obesity Nutrition-Focused Physical Exam Summary: Based on the ASPEN/AND Malnutrition Diagnoisis Guide, it was determined that the [place] DOES NOT have malnutrition. Nutrition History: Food/Nutrition Related History: Met with who is happy with his weight loss and improvement in his labs. He continues to limit his carb intake and has been more active walking and kayaking. Continues to drinks 4-5 cups of coffee with milk/sugar and OJ or water per day. Decreased smoking to 1/3 PPD. In the past 3 months, did you ever run out of food and you were not able to access more food or have the money to buy more food? No Physical Activity: bike riding 3 days per week and cutting wood NUTRITION DIAGNOSIS: Obesity related to excess energy intake, physical inactivity, as evidenced by BMI=35-39.9. [ ] Resolved [X] Improvement Shown [ ] Unresolved/No Improvement [ ] No Longer Appropriate Altered nutrition-related laboratory values (SPECIFY:____) related to obesity as evidenced by A1c >5.6% (pre-diabetes) . [ ] Resolved [ ] Improvement Shown [X] Unresolved/No Improvement [ ] No Longer Appropriate NUTRITION INTERVENTION: NUTRITION EDUCATION provided on the following topic(s): Sources of Carbohydrates, Healthy Meal Planning, Healthy Weight Loss Strategies, Potential Benefits of Weight Loss, MOVE! program (rationale, format, content, day/time, location), Physical Activity (potential benefits) Printed Nutrition educational materials provided during this encounter: None Food/Drug Interactions: Atorvastatin/Grapefruit Education Narrative: Congratulated him on what he has achieved so far. Set goals. Barriers to Education: None Comprehension: Good Motivation: Good Goals: 1. Continue to chop wood and start ice skating. 2. Continue to limit carbs and added sugar. NUTRITION COUNSELING: Strategies: Goal Setting, Self Monitoring, Problem Solving COORDINATION OF NUTRITION CARE: Follow-up with: PCP MONITORING/EVALUATION: 1. Follow-up visit: Dec 30, 2024 2. Monitor progress toward achievement of Nutrition Intervention Goals 3. Assess comprehension and motivation based on dietary changes made 4. Monitor progress toward achievement of Clinical Outcome Goals: Weight, Labs CLINICAL OUTCOME GOALS: Indicator A1c: Criteria: Impaired Fasting Glucose Goal: A1c<5.8% by follow-up Progress: At goal. Continue goal. Indicator: Weight Criteria: Obese per BMI Goal: Weight loss of 1-2/#/week toward IBW by follow-up Progress: Wt is down. Continue goal. WHOLE HEALTH WHOLE HEALTH EDUCATION Whole Health Education was provided. /isaías/ LUANA CARNEY STAFF DIETITIAN Signed: 07/01/2024 10:29 LUANA CARNEY [place] [facility]
--- OUTSIDE RECORDS SUMMARY | 2024-12-18 05:00 | XMS_ITS | Encounter Summary ---
Author Name [facility] [place] [facility] [place] Address [address] [place] [address] Care Team Providers Care Office Clerk Routine Name Role Phone VAL SWANSON Primary Care [...] Relationship to Policy Pryor MARGIE VILLASENORBS OF [facility], [facility]–1983 CE ORGANIZAT ION SELENA CARMEN L ACTIV E Mar 25, 2021 [id number] VIVIANE [place]OL[place]O PATIENT [place] DEDU[place]ALTH PLAN [place] ACTIV E [facility] Jun 21, 2021 [id number] VIVIANE TOLEDO PATIENT BCBS [facility] CE ORGANIZ NETWO RK BLUE NEW EN* January 23, 2013 [id number] VIVIANE TOLEDO PATIENT BCBS [facility] CE ORGANIZ [facility] SHARE ACTIV E January 23, 2013 [id number] VIVIANE TOLEDO PATIENT [employer] ([id number]) PRESCRIPT ION L4TA* January 23, 2013 L4TA [id number] VIVIANE TOLEDO PATIENT Selected Encounter This section includes the information on record at [place] for the Encounter. Date/Time Encounter Type Encounter Description Reason Provider Source Dec 18, 2024 09:00 AM OFFICE O/P EST MOD 30 MIN PRIMARY CARE/MEDICINE ICD-10-CM I10 Essential (primary) hypertension VAL SWANSON [place]sa Encounter Template Text not used by [place] Assessments - Encounter Diagnoses This section includes the primary and secondary diagnoses documented for the Encounter. Date/Time Primary/Secondary Diagnosis Diagnosis Name Provider Source Jan 10, 2025 11:33 AM PRIMARY Essential (primary) hypertension VAL SWANSON [place] Jan 10, 2025 11:33 AM SECONDARY Encounter for immunization GEOFFJUANBRADEN [place] Jan 10, 2025 11:33 AM SECONDARY Malignant neoplasm of bladder, unspecified VAL SWANSON [place] Jan 10, 2025 11:33 AM SECONDARY Mixed hyperlipidemia VAL SWANSON [place] Jan 10, 2025 11:33 AM SECONDARY Obesity, unspecified VAL SWANSON [place] Plan of Treatment: Future Appointments (+ 6 months) and Future Tests (+/- 45 days) The Plan of Treatment section includes future care activities for the [facility] [place] [facility] This section includes future appointments and future orders which are active, pending or scheduled. Future Appointments This section includes appointments that were scheduled to occur 6 months from the date of the Encounter, up to a maximum of 20 appointments. The data comes from all [place] treatment facilities. Appointment Date/Time Appointment Type Appointme nt Facility Name Dec 30, 2024 10:00 AM AMBULATORY - NONE [place] [facility] Dec 31, 2024 02:45 PM AMBULATORY - MEDICINE [place] [facility] Apr 08, 2025 09:30 AM AMBULATORY - NONE [facility] Jun 09, 2025 10:00 AM AMBULATORY - NONE [facility] Jun 17, 2025 10:00 AM [facility] [place] [place] [facility] Lab Results: +/- 30 days of the encounter This section includes the Chemistry and Hematology Lab Results on record with [place] for the patient. Radiology Reports and Pathology Reports are provided separately, in subsequent sections. Lab Results This section contains the Chemistry/Hematology Results that were resulted 30 days before or 30 daysafter the date of the Encounter. Date/Time Source Result Type Result - Unit Interpretation Reference Range Specimen Type Comment Dec 13, 2024 07:37 AM [facility] HEMOGLOBIN A1C PANEL BLOOD Specimen Type: BLOOD Comment: Values obtained from A1C measurements can vary. For atypical A1C assays, a reported value of 7.0 could actually be between 6.72 and 7.28 if measured by a reference method. A reported value of 9.0 could actually be between 8.73 and 9.27. Ref: http://www.ngsp .org/CAPdata.as p Ordering Provider: VAL SWANSON Report Released Date/Time: Jun 20, 2024 06:32 AM Reporting Lab: [address] [id number] Performing Lab: [address] [phone] HEMOGLOBIN A1C 5.5 4.0-5.6 Dec 13, 2024 07:37 AM [facility] LIPID PANEL FASTING SERUM Specimen Type: SERU M No comment entered. Ordering Provider: VAL SWANSON Report Released Date/Time: Jun 20, 2024 06:32 AM Reporting Lab: [address] [address] Performing Lab: [address] [address] CHOLESTEROL 148 mg/dL TRIGLYCERIDE 130 mg/dL 0-150 LDL calculated 87 mg/dL 0-129 CHOL/HDL 4.2 HDL CHOLESTEROL 35 mg/dL L 40-60 Dec 13, 2024 07:37 AM [facility] LIVER FUNCTION SERUM Specimen Type: SERUM No comment entered. Ordering Provider: VAL SWANSON Report Released Date/Time: Jun 20, 2024 06:32 AM Reporting Lab: [address] [address] Performing Lab: [address] [place] [address] PROTEIN,TOTAL 7.4 g/dL 6.0-8.3 ALBUMIN 4.1 g/dL 3.5-5.0 ALKALINE PHOSPHATASE 68 U/L 40-150 AST 19 U/L 5-34 ALT 34 U/L BILIRUBIN, TOTAL 0.5 mg/dL 0.2-1.2 Dec 13, 2024 07:37 AM [facility] BASIC METABOLIC PANEL (fasting) SERUM Specime n Type: SERUM No comment entered. Ordering Provider: VAL SWANSON Report Released Date/Time: Jun 20, 2024 06:32 AM Reporting Lab: [address] [address] Performing Lab: [address] [address] UREA NITROGEN 14 mg/dL 7-25 GLUCOSE 112 mg/dL H 65-100 SODIUM 137 mmol/L 135-145 POTASSIUM 4.5 mmol/L 3.5-5.0 CHLORIDE 107 mmol/L 100-110 CO2 25 meq/L 20-30 CALCIUM 9.1 mg/dL 8.5-10.2 CREATININE, Serum 0.77 mg/dL 0.50-1.40 eGFR(CKD-EPI 2020) >90 mL/min >60 Immunizations: All administered on the encounter date This section contains immunizations associated to the Encounter. Immunization Series Date Issued Administered By Site Reaction Lot Number CVX Code Drug Refrigeration Operator Comment(s) Source ZOSTER RECOMBINANT Dec 18, 2024 MARCIE RUANO LEFT DELTO ID [id number] TIO Completed Series, [facility] Social History: Smoking Status (Most current) and Tobacco Use (All prior to encounter date) This section includes the most current, and the historical, smoking and tobacco- related health factors from the [place] facility where the Encounter took place. Current Smoking Status This section includes the most current smoking, or tobacco-related health factor, from the [place] facility where the Encounter took place. Date/Time Current Smoking Status Comment Bernardo zuniga Jun 20, 2024 09:00 AM [place]-TOBACCO FORMER USER [place] Tobacco Use History This section includes a history of the smoking, or tobacco-related health factors, that were collected on or before the date of the Encounter. The data comes from the [place] facility where the Encounter took place. Date/Time Smoking Status/Tobacco Use Comment F acility Jun 20, 2024 09:00 AM VA-TOBACCO QUIT 1 TO < 5 YRS [place] Jun 21, 2023 01:00 PM VA-TOBACCO USE 30 YEARS OR MORE [place] Jun 21, 2023 01:00 PM VA-TOBACCO USE ADVICE [place] Jun 21, 2023 01:00 PM VA-TOBACCO USE REED OR WIND INSTRUMENT REPAIRER NO [place] Jun 21, 2023 01:00 PM VA-TOBACCO USE MED NO [place] Jun 21, 2023 01:00 PM VA-TOBACCO USE WI 30 MIN OF WAKEUP [place] Jun 21, 2023 01:00 PM VA-TOBACCO USER EVERY DAY [place] May 19, 2022 09:30 AM VA-TOBACCO DOESNT USE WI 30 MIN PRITCHETTUP [place] May 19, 2022 09:30 AM VA-TOBACCO USE > 1 5 LESS THAN 30 YEARS [place] May 19, 2022 09:30 AM VA-TOBACCO USE ADVICE [place] May 19, 2022 09:30 AM VA-TOBACCO USE REED OR WIND INSTRUMENT REPAIRER NO [place] May 19, 2022 09:30 AM VA-TOBACCO USE MED NO [place] May 19, 2022 09:30 AM VA-TOBACCO USER SOME DAYS [place] May 20, 2021 09:30 AM VA-TOBACCO USE > 1 5 LESS THAN 30 YEARS [place] May 20, 2021 09:30 AM VA-TOBACCO USE ADVICE [place] May 20, 2021 09:30 AM VA-TOBACCO USE REED OR WIND INSTRUMENT REPAIRER NO [place] May 20, 2021 09:30 AM VA-TOBACCO USE MED NO [place] May 20, 2021 09:30 AM VA-TOBACCO USE [place] 30 MIN OF WAKEUP [place] May 20, 2021 09:30 AM VA-TOBACCO USER EVERY DAY [place] Jun 19, 2018 01:47 PM CURRENT SMOKER [facility] Jun 19, 2018 01:47 PM V1-PT NOT INTEREST ED IN QUIT TOBACCO USE [place] Nov 22, 2017 09:29 AM CURRENT SMOKER 1/2 pack - 1 pack daily [place] Nov 22, 2017 09:29 AM V1-PT NOT INTEREST ED IN QUIT TOBACCO USE [place] May 15, 2017 08:48 AM CURRENT SMOKER 1/2-1 pack daily, started at age 23 [place] May 15, 2017 08:48 AM V1-PT NOT INTEREST ED IN QUIT TOBACCO USE [place] May 13, 2016 01:05 PM V1-PT NOT INTEREST ED IN QUIT TOBACCO USE [place] Sep 14, 2015 01:52 PM CURRENT SMOKER smokes about a ppd of cigaretts [place] Sep 14, 2015 01:52 PM V1-PT NOT INTEREST ED IN QUIT TOBACCO USE [place] Jul 03, 2014 08:37 AM CURRENT SMOKER smokes one ppd of cigarbarbra [place] Jul 03, 2014 08:37 AM V1-PT DECLINES REF TO TOBACCO CESS [facility] Jul 03, 2014 08:37 AM V1-PT DECLINES TOB ACCO CESSATION [facility] Jul 03, 2014 08:37 AM V1-PT NOT INTEREST ED IN QUIT TOBACCO USE [place] Mar 08, 2013 02:36 PM CURRENT SMOKER Pt. satted he smokes a pack a day. [place] Mar 08, 2013 02:36 PM V1-PT DECLINES REF TO TOBACCO CESS [facility] Mar 08, 2013 02:36 PM V1-PT DECLINES TOB ACCO CESSATION [facility] Mar 08, 2013 02:36 PM V1-PT NOT INTEREST ED IN QUIT TOBACCO USE [place] Nov 17, 2005 10:05 AM CURRENT SMOKER [facility] Nov 17, 2004 10:10 AM CURRENT SMOKER 1ppd x 10yrs [place] Jan 04, 2002 09:45 AM CURRENT SMOKER 1 pack weekly...smoking 6-7 years [place] Encounter Notes: All associated encounter notes This section contains the clinical notes associated to the Encounter. Date/Time Encounter Note(s) Provider Source Dec 18, 2024 09:11 AM PREVENTIVE MEDICIN E NURSING NOTE: LOCAL TITLE: CLINICAL REMINDERS/NURSING STANDARD TITLE: PREVENTIVE MEDICINE NURSING NOTE DATE OF NOTE: DEC 18, 2024@09:11 ENTRY DATE: DEC 18, 2024@09:11:56 AUTHOR: BRADEN RUANO EXP COSIGNER: URGENCY: STATUS: COMPLETED Influenza Immunization: Deferral / Refusal The patient declines to receive the recommended dose of seasonal influenza vaccine. Immunization: INFLUENZA, UNSPECIFIED FORMULATION Refusal Reason: PATIENT DECISION Patient refuses all immunization(s) in the FLU group Comment: [place] deferred at this time. Date Documented: 12/18/24 09:12 COVID-19 Immunization: Refused Moderna Monovalent COVID-19 vaccine Immunization: COVID-19 (MODERNA), MRNA, LNP-S, PF, 50 MCG/0.5 ML (AGES 12+ YEARS) Refusal Reason: PATIENT DECISION Patient refuses all immunization(s) in the COVID-19 group Comment: [place] deferred at this time. Date Documented: 12/18/24 09:12 Herpes Zoster (Shingles) Vaccine: Administered: ZOSTER RECOMBINANT Date Administered: Dec 18, 2024 09:00 Series: Complete Refrigeration Operator: Hexagram 49 Lot: [id number] Exp Date: Aug 09, 2026 [facility]: [id number] Admin Route/Site: INTRAMUSCULAR/LEFT DELTOID Dosage: 0.5mL Vaccine Information Statement(s): RECOMBINANT ZOSTER VACCINE VIS Oct 29, 2021 (ARGENTINE) Order By: Policy Administered By: Braden Ruano The Recombinant Zoster Vaccine Information Statement (VIS) was reviewed with the patient/caregiver which lists the benefits and risks of the vaccine and the risks of not receiving the Recombinant Zoster vaccine. The patient/caregiver denied any prior severe reaction to this vaccine or its components or a severe allergic reaction, such as anaphylaxis, to any vaccine or any injectable therapy. The patient/caregiver gave verbal consent to receive the vaccine. /isaías/ BRADEN RUANO RN REGISTERED NURSE Signed: 12/18/2024 09:14 BRADEN RUANO [place] Dec 18, 2024 05:24 AM PHYSICIAN NOTE: LOCAL TITLE: MD NOTE STANDARD TITLE: PHYSICIAN NOTE DATE OF NOTE: DEC 18, 2024@05:24 ENTRY DATE: DEC 18, 2024@05:24:31 AUTHOR: VAL SWANSON EXP COSIGNER: URGENCY: STATUS: COMPLETED HISTORY OF PRESENT ILLNESS: VIVIANE Pinedo TRE is a 53 yo MALE who presents at the [facility] for f/u to Htn/Lipids/PreDM/WT check. Labs completed. Active problems - Computerized Problem List is the source for the followin. History of squamous cell carcinoma of skin 2. Vaping 3. Steatosis of liver 4. Bladder cancer 5. Colonoscopy Screening 6. Prediabetes 7. Obesity 8. Tobacco dependence in remission 9. History Right Ankle Fracture 10. Mixed hyperlipidemia 11. Hypertension The following VA and Non-VA meds were reconciled with patient: Active Outpatient Medications (including Supplies): Issue Date Status Last Fill Active Outpatient Medications Refills Expiration 1) ATORVASTATIN CALCIUM 80MG TAB Qty: 45 for 90 ACTIVE Issue: 06/20/24 days Sig: TAKE ONE-HALF TABLET BY MOUTH AT Refills: 2 Last : 10/21/24 BEDTIME FOR CHOLESTEROL Expr : 06/21/25 2) DILTIAZEM (EQV-TIAZAC) 240MG 24HR CAP Qty: ACTIVE Issue: 06/20/24 90 for 90 days Sig: TAKE ONE CAPSULE BY Refills: 2 Last : 10/21/24 MOUTH DAILY Expr : 06/21/25 3) LISINOPRIL 10MG TAB Qty: 90 for 90 days Sig: ACTIVE Issue: 06/20/24 TAKE ONE TABLET BY MOUTH ONCE DAILY TO Refills: 2 Last : 10/21/24 CONTROL BLOOD PRESSURE Expr : 06/21/25 Indication: FOR HIGH BLOOD PRESSURE Start Date Active Non-VA Medications Status Stop Date 1) Non-VA CHOLECALCIF 25MCG (D3-1,000UNIT) TAB ACTIVE SiMCG BY MOUTH ONCE DAILY 2) Non-VA FISH OIL 1000MG (500MG DHA/EPA) CAP ACTIVE SiMG BY MOUTH ONCE DAILY 5 Total Medications ALLERGIES: ========= Patient has answered NKA LAB HISTORY: CHEM 7 TREND Collection DT Spec GLUCOSE BUN CREATIN Sodium K+/Pot CL CO2 12/13/2024 07:37 SERUM 112 H 14 0.77 137 4.5 107 25 06/13/2024 07:47 SERUM 105 H 14 0.86 137 4.6 104 23 12/14/2023 07:31 SERUM 119 H 19 0.83 138 4.3 104 25 06/14/2023 07:49 SERUM 113 H 15 0.82 138 4.4 107 23 11/17/2022 08:01 SERUM 115 H HEMOGLOBIN A1C TREND Collection DT Spec HGBA1c 12/13/2024 07:38 BLOOD 5.5 06/13/2024 07:47 BLOOD 5.5 12/14/2023 07:31 BLOOD 5.8 H 06/14/2023 07:49 BLOOD 5.8 H 11/17/2022 08:01 BLOOD 5.9 H LIPID PANEL TREND Collection DT Spec CHOL HDL CHO/HDL LDL-d LDL-c TRIG 12/13/2024 07:37 SERUM 148 35 L 4.2 87 130 06/13/2024 07:47 SERUM 180 37 L 4.9 107 180 H 12/14/2023 07:31 SERUM 160 32 L 5.0 85 213 H 06/14/2023 07:49 SERUM 155 32 L 4.8 89 171 H 11/17/2022 08:01 SERUM 151 38 L 4.0 85 139 LIVER PANEL TREND Collection DT Spec AST ALT T BILI ALK SHANE T. PROT ALBUMIN 12/13/2024 07:37 SERUM 19 34 0.5 68 7.4 4.1 06/13/2024 07:47 SERUM 16 24 0.4 67 7.1 4.2 12/14/2023 07:31 SERUM 17 32 0.4 71 7.1 4.2 06/14/2023 07:49 SERUM 18 36 0.4 62 6.9 4.2 11/17/2022 08:01 SERUM 21 49 0.4 61 7.0 4.2 HISTORY: PERIOD OF SERVICE - [facility] Movinary FROM Jul TO May COMBAT SERVICE INDICATED: No VITAL SIGNS: Blood Pressure 128/87 (12/18/2024 09:11) Pulse 92 (12/18/2024 09:11) Respiration 18 (12/18/2024 09:11) Pulse Oximetry 97% (12/18/2024 09:11) Temperature 97.9 F [36.6 C] (12/18/2024 09:11) Pain 0 (06/20/2024 09:00) Height 72 in [182.9 cm] (06/20/2024 09:00) Weight 261.8 lb [118.75 kg] (12/18/2024 09:11) BMI BMI: 35.6 REVIEW OF SYSTEMS: ENT: No sore throat, no cough CARDIOVASCULAR: No chest pain, no palpitations RESPIRATORY: [...] PSYCHIATRIC: Good eye contact, affect normal ASSESSMENT/PLAN: 1. Bladder CA: presented w/gross hematuria 12/23/23, s/p bladder tumor resection 01/2024, receiving BCG instillations - started 05/21/24, managed by Dr James - [facility], last OV 09/27/24 MRI abdomen with and w/o completed 05/14/24 at [facility]: IMPRESSION: Small mildly T2 hyperintense hepatic [...] abdomen in 3 months could be considered. PET SCAN completed 08/15/24: IMPRESSION: No evidence of FDG-avid metastatic disease. Specifically no abnormal uptake to correspond with the findings on MRI. 2. Hypertension: well controlled on diltiazem 240mg/day and lisinopril 10mg/day 3. Mixed Hyperlipidemia: under good control on atorvastatin 40mg/QHS Collection DT Spec CHOL HDL CHO/HDL LDL-d LDL-c TRIG 12/13/2024 07:37 SERUM 148 35 L 4.2 87 130 4. Prediabetes: cont monitering carbs/simple sugars in diet, both parents had DM FBS 112 - A1c 5.5% 5. Obesity: BMI ~36, counseled on weight loss 6. Nicotine Dependence: 1 PPD x 30 yrs, quit early 2023, now vaping 7. Colonoscopy Screening: never, scheduled for 04/08/25 FOLLOW UP: 6 mths - AWE - FBW prior ========= UPCOMING APPOINTMENTS: 12/30/2024 10:00 SPR NUTRITION 1 04/08/2025 09:30 COM CARE-COLO SCRN No barriers; Patient understands and agrees to current treatment plan. If pt has any questions, concerns, or changes in current health status he/she will call or come [facility] to the [facility]. Medication Reconciliation: Outpatient: Has the patient been taking medications as documented in the EMLR? YES: The patient has been taking medications as documented in the EMLR. Essential Medication List for Review used to complete this medication reconciliation. INCLUDED IN THIS LIST: Alphabetical list of active outpatient prescriptions dispensed from this [place] (local) and dispensed from another [place] or [facility] facility (remote) as well as [...] list may not be complete. Please check Bagels and Bean. Allergies/ADRs (Tool #5) FACILITY ALLERGY/ADR -------- No Remote Allergy/ADR Data available for this patient [facility] No Known Allergies Med Recon [facility] (Tool #1) INCLUDED IN THIS LIST: Alphabetical list of active outpatient prescriptions dispensed from this [facility] (local) and dispensed from another [place] or [facility] facility (remote) as well as inpatient orders (local pending and active), local clinic medications, locally documented non-VA medications, and local prescriptions that have or been discontinued in the past 90 days. Non-VA Meds Last Documented On: Apr 15, 2020 NOTE The display of VA prescriptions dispensed from another [place] or [facility] facility (remote) is limited to active outpatient prescription entries matched to National Drug File at the originating site and may not include some items such as investigational drugs, compounds, etc. NOT INCLUDED IN THIS LIST: Medications self-entered by the patient into personal health records (i.e. [employer]) are NOT included in this list. Non-VA medications documented outside this [place], remote inpatient orders (regardless of status) and remote clinic medications are NOT included in this list. The patient and provider must always discuss medications the patient is taking, regardless of where the medication was dispensed or obtained. ---- OUTPT ATORVASTATIN CALCIUM 80MG TAB (Status = Active) TAKE ONE-HALF TABLET BY MOUTH AT BEDTIME FOR CHOLESTEROL Rx# [id number] Last Released: 10/22/24 Qty/Days Supply: Rx Expiration Date: 06/21/25 Refills Remainin Non-VA CHOLECALCIF 25MCG (D3-1,000UNIT) TAB TAKE ONE TABLET BY MOUTH ONCE DAILY Apr 15, 2020 Patient wants to buy from Non-[place] pharmacy. OUTPT DILTIAZEM (EQV-TIAZAC) 240MG 24HR CAP (Status = Active) TAKE ONE CAPSULE BY MOUTH DAILY Rx# [id number] Last Released: 10/22/24 Qty/Days Supply: Rx Expiration Date: 06/21/25 Refills Remainin Non-VA FISH OIL 1000MG (500MG DHA/EPA) CAP TAKE 2 CAPSULES BY MOUTH ONCE DAILY Apr 15, 2020 Patient wants to buy from Non-[place] pharmacy. OUTPT LISINOPRIL 10MG TAB (Status = Active) TAKE ONE TABLET BY MOUTH ONCE DAILY TO CONTROL BLOOD PRESSURE Rx# [id number] Last Released: 10/22/24 Qty/Days Supply: Rx Expiration Date: 06/21/25 Refills Remainin Indication: FOR HIGH BLOOD PRESSURE ---- SUPPLIES ---- Avg Risk Colorectal Cancer Screen: AVERAGE RISK colorectal cancer screening is due based on information available to this clinical reminder Colorectal cancer screening already scheduled or in process of being scheduled. /isaías/ VAL SWANSON MD Primary Care Physician Signed: 12/18/2024 09:47 VAL SWANSON [place]
--- OUTSIDE RECORDS SUMMARY | 2024-12-30 06:00 | XMS_ITS ---
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 Name Role Phone VAL SWANSON Primary Care [...] Relationship to Policy Pryor MARGIE MICHAEL OF [facility] CE ORGANIZAT ION SELENA CARMEN L ACTIV E Mar 25, 2021 [id number] [phone] VIVIANE TOLEDO PATIENT [employer] [place] [employer] DEDUCTIBL E HE[employer] PLAN [place] ACTIV E [facility] Jun 21, 2021 [id number] [phone] VIVIANE TOLEDO PATIENT BCBS [facility] CE ORGANIZ NETWO RK BLUE NEW EN* January 23, 2013 [id number] VIVIANE TOLEDO PATIENT BCBS [facility] CE ORGANIZ [facility] SHARE ACTIV E January 23, 2013 [id number] VIVIANE TOLEDO PATIENT [employer] ([id number]) PRESCRIPT ION L4TA* January 23, 2013 [id number] VIVIANE TOLEDO PATIENT Selected Encounter This section includes the information on record at [place] for the Encounter. Date/Time Encounter Type Encounter Description Reason Provider Source Dec 30, 2024 10:00 AM MED NUTRITION INDIV SUBSEQ NUTRITION/DIETETIC S-INDIVIDUAL ICD-10-CM E66.812 Obesity, class 2 LUANA CARNEY Khris Lyssa Encounter Template Text not used by [place] Assessments - Encounter Diagnoses This section includes the primary and secondary diagnoses documented for the Encounter. Date/Time Primary/Secondary Diagnosis Diagnosis Name Provider Source February 15, 2025 12:08 PM PRIMARY Obesity, class 2 JESS CARNEY February 15, 2025 12:08 PM SECONDARY Body mass index [BMI] 35.0-35.9, adult JESS CARNEY CIELO February 15, 2025 12:08 PM SECONDARY Dietary counseling and surveillance JESS CARNEY [place] Plan of Treatment: Future Appointments (+ 6 months) and Future Tests (+/- 45 days) The Plan of Treatment section includes future care activities for the patient from [facility] [place] [facility] This section includes future appointments and future orders which are active, pending or scheduled. Future Appointments This section includes appointments that were scheduled to occur 6 months from the date of the Encounter, up to a maximum of 20 appointments. The data comes from all [place] treatment facilities. Appointment Date/Time Appointment Type Appointme nt Facility Name Dec 31, 2024 02:45 PM AMBULATORY - MEDICINE [facility] Apr 08, 2025 09:30 AM [facility] Jun 09, 2025 10:00 AM [facility] Jun 17, 2025 10:00 AM AMBULATORY - MEDICINE [facility] Lab Results: +/- 30 days of the encounter This section includes the Chemistry and Hematology Lab Results on record with [place] for the patient. Radiology Reports and Pathology Reports are provided separately, in subsequent sections. Lab Results This section contains the Chemistry/Hematology Results that were resulted 30 days before or 30 daysafter the date of the Encounter. Date/Time Source Result Type Result - Unit Interpretation Reference Range Specimen Type Comment Dec 13, 2024 07:37 AM [facility] LIPID PANEL FASTING SERUM Specimen Type: SERUM No comment entered. Ordering Provider: VAL SWANSON Report Released Date/Time: Jun 20, 2024 06:32 AM Reporting Lab: [facility] [address] [address] Performing Lab: [address] [address] CHOLESTEROL 148 mg/dL TRIGLYCERIDE 130 mg/dL 0-150 LDL calculated 87 mg/dL 0-129 CHOL/HDL 4.2 HDL CHOLESTEROL 35 mg/dL L 40-60 Dec 13, 2024 07:37 AM [facility] HEMOGLOBIN A1C PANEL BLOOD Specimen Type: [...] Jun 20, 2024 06:32 AM Reporting Lab: [address] [id number] Performing Lab: [address] [address] HEMOGLOBIN A1C 5.5 4.0-5.6 Dec 13, 2024 07:37 AM [facility] LIVER FUNCTION SERUM Specimen Type: SERUM No comment entered. Ordering Provider: VAL WSANSON Report Released Date/Time: Jun 20, 2024 06:32 AM Reporting Lab: [address] [address] Performing Lab: [address] [address] PROTEIN,TOTAL 7.4 g/dL 6.0-8.3 ALBUMIN 4.1 g/dL 3.5-5.0 ALKALINE PHOSPHATASE 68 U/L 40-150 AST 19 U/L 5-34 ALT 34 U/L BILIRUBIN, TOTAL 0.5 mg/dL 0.2-1.2 Dec 13, 2024 07:37 AM [facility] BASIC METABOLIC PANEL (fasting) SERUM Specime n Type: SERUM No comment entered. Ordering Provider: VAL SWANSON Report Released Date/Time: Jun 20, 2024 06:32 AM Reporting Lab: [facility] [address] [address] Performing Lab: [facility] [address] [facility] [address] UREA NITROGEN 14 mg/dL 7-25 GLUCOSE 112 mg/dL H 65-100 SODIUM 137 mmol/L 135-145 POTASSIUM 4.5 mmol/L 3.5-5.0 CHLORIDE 107 mmol/L 100-110 CO2 25 meq/L 20-30 CALCIUM 9.1 mg/dL 8.5-10.2 CREATININE, Serum 0.77 mg/dL 0.50-1.40 eGFR(CKD-EPI 2020) >90 mL/min >60 Social History: Smoking Status (Most current) and Tobacco Use (All prior to encounter date) This section includes the most current, and the historical, smoking and tobacco- related health factors from the [place] facility where the Encounter took place. Current Smoking Status This section includes the most current smoking, or tobacco-related health factor, from the [place] facility where the Encounter took place. Date/Time Current Smoking Status Comment Bernardo ity Jun 20, 2024 09:00 AM VA-TOBACCO FORMER USER [place] Tobacco Use History This section includes a history of the smoking, or tobacco-related health factors, that were collected on or before the date of the Encounter. The data comes from the [place] facility where the Encounter took place. 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 [facility] Jun 21, 2023 01:00 PM VA-TOBACCO USE MED NO [place] Jun 21, 2023 01:00 PM VA-TOBACCO USE WI 30 MIN OF WAKEUP [place] Jun 21, 2023 01:00 PM VA-TOBACCO USER EVERY DAY [place] May 19, 2022 09:30 AM VA-TOBACCO DOESNT USE WI 30 MIN [facility] May 19, 2022 09:30 AM VA-TOBACCO USE > 1 5 LESS THAN 30 YEARS [place] May 19, 2022 09:30 AM VA-TOBACCO USE ADVICE [place] May 19, 2022 09:30 AM VA-TOBACCO USE 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 ENGINEER NO [place] May 19, 2022 09:30 AM VA-TOBACCO USE MED NO [place] May 19, 2022 09:30 AM VA-TOBACCO USER SOME DAYS [facility] May 20, 2021 09:30 AM VA-TOBACCO USE > 1 5 LESS THAN 30 YEARS [place] May 20, 2021 09:30 AM VA-TOBACCO USE ADVICE [place] May 20, 2021 09:30 AM VA-TOBACCO USE 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 ENGINEER NO [place] May 20, 2021 09:30 AM VA-TOBACCO USE MED NO [place] May 20, 2021 09:30 AM VA-TOBACCO USE WI 30 MIN OF HICKMANUP [place] May 20, 2021 09:30 AM VA-TOBACCO USER EVERY DAY [place] Jun 19, 2018 01:47 PM CURRENT SMOKER [facility] Jun 19, 2018 01:47 PM V1-PT NOT INTEREST ED IN QUIT TOBACCO USE [place] Nov 22, 2017 09:29 AM CURRENT SMOKER 1/2 pack - 1 pack daily [place] Nov 22, 2017 09:29 AM V1-PT NOT INTEREST ED IN QUIT TOBACCO USE [place] May 15, 2017 08:48 AM CURRENT SMOKER 1/2-1 pack daily, started at age 23 [place] May 15, 2017 08:48 AM V1-PT NOT INTEREST ED IN QUIT TOBACCO USE [place] May 13, 2016 01:05 PM V1-PT NOT INTEREST ED IN QUIT TOBACCO USE [place] Sep 14, 2015 01:52 PM [facility] 01:52 PM V1-PT NOT INTEREST ED IN QUIT TOBACCO USE [place] Jul 03, 2014 08:37 AM [facility]RENT [facility] Jul 03, 2014 08:37 AM V1-PT DECLINES REF TO TOBACCO CESS PRGM [facility] Jul 03, 2014 08:37 AM V1-PT DECLINES TOB ACCO CESSATION MEDS [facility] Jul 03, 2014 08:37 AM V1-PT NOT INTEREST ED IN QUIT TOBACCO USE [place] Mar 08, 2013 02:36 PM CURRENT SMOKER Pt. satted he smokes a pack a day. [facility] Mar 08, 2013 02:36 PM V1-PT DECLINES REF TO TOBACCO CESS PRGM [place] Mar 08, 2013 02:36 PM V1-PT DECLINES TOB ACCO CESSATION MEDS [place] Mar 08, 2013 02:36 PM V1-PT NOT INTEREST ED IN QUIT TOBACCO USE [place] Nov 17, 2005 10:05 AM CURRENT SMOKER [facility] Nov 17, 2004 10:10 AM CURRENT SMOKER 1ppd x 10yrs [place] Jan 04, 2002 09:45 AM CURRENT SMOKER 1 pack weekly...smoking 6-7 years [facility] Encounter Notes: All associated encounter notes This section contains the clinical notes associated to the Encounter. Date/Time Encounter Note(s) Provider Source Dec 30, 2024 10:00 AM NUTRITION DIETETIC S NOTE: LOCAL TITLE: NUTRITION PROGRESS NOTE STANDARD TITLE: NUTRITION DIETETICS NOTE DATE OF NOTE: DEC 30, 2024@10:00 ENTRY DATE: DEC 30, 2024@10:26:41 AUTHOR: LUANA CARNEY COSIGNER: URGENCY: STATUS: COMPLETED FOLLOW-UP NUTRITION ASSESSMENT Reason for Nutrition referral: Primary Diagnosis: PreDiabetes (R73.03) Secondary Diagnosis: Dietary Surveillance and Counseling (Z71.3) Additional Secondary Diagnosis: Obesity class I (E66.811) Date of Nutrition Visit: Dec Visit #: 4 Time Spent with Patient: 40 minutes Patient identified using the following two forms of ID: Date of , Patient Full Name NUTRITION ASSESSMENT: Client History === Food/Drug Interactions: Atorvastatin/Grapefruit, Food drug interaction education provided Anthropometric Measurements: Ht:72 in [182.9 cm] (06/20/2024 09:00) Wt:256.5 lb [116.35 kg] (12/30/2024 10:02) Weight History: Measurement DT WEIGHT LB(KG)[BMI] 12/30/2024 10:02 256.5(116.35)[35*] 12/18/2024 09:11 261.8(118.75)[36*] BMI: 34.9 IBW: 178 lb Biochemical Data/Medical Tests: Labs: LIPID PANEL TREND Collection DT Spec CHOL HDL CHO/HDL LDL-d LDL-c TRIG 12/13/2024 07:37 SERUM 148 35 L 4.2 87 130 06/13/2024 07:47 SERUM 180 37 L 4.9 107 180 H HEMOGLOBIN A1C; BLOOD José Miguel. Date: 12/13/24 07:38 06/13/24 07:47 Test Name Result Units Range HEMOGLOBIN A1C 5.5 5.5 % 4.0 - 5.6 Other Labs: BP: 128/87 (12/18/2024 09:11) Nutrition Focused Physical Findings: === Appetite: Good Other issues/concerns: None Nutrition-Focused Physical Exam A selection MUST be made in The Nutrition-Focused Physical Exam Summary section Signs of Obesity Body habitus: Android Obesity Nutrition-Focused Physical Exam Summary: ======= Based on the ASPEN/AND Malnutrition Diagnosis Guide, it was determined that the DOES NOT have malnutrition. Nutrition History: Food/Nutrition Related History: Met with who is happy with his weight loss and improvement in his labs. He continues to limit his carb intake and has been more active. Continues to drinks 4-5 cups of coffee with milk/sugar and OJ or water per day. quit smoking and is now vaping. In the past 3 months, did you ever run out of food and you were not able to access more food or have the money to buy more food? No Physical Activity:bike riding 3 days per week and cutting wood NUTRITION DIAGNOSIS Nutrition Problem: ACTIVE Obesity related to excess energy intake, physical inactivity, as evidenced by BMI=35-39.9. Altered nutrition-related laboratory values (SPECIFY:____) related to obesity as evidenced by A1c >5.6% (pre-diabetes) . INTERVENTION Update on Interventions Discussed at Previous Visit: He ontinues to limit his portions and is slowly increasing his exercise. NUTRITION COUNSELING Nutrition counseling based on motivational interviewing strategy , Nutrition counseling based on goal setting strategy , Nutrition counseling based on self monitoring strategy NUTRITION EDUCATION Content related to nutrition education, Education on nutrition's influence on health, Physical activity guidance Nutrition Education provided on the following topics: Healthy Meal Planning, Healthy Weight Loss Strategies, Potential Benefits of Weight Loss Printed Nutrition educational materials provided during this encounter: None Barriers to Education: None Comprehension: Good Motivation: Good COORDINATION OF NUTRITION CARE Follow-up with: PCP MONITORING Patient SMART goals from previous visit: 1. Continue to chop wood and start ice skating. 2. Continue to limit carbs and added sugar. Some progress towards goal New Patient SMART Goals: 1. Continue to increase exercise as tolerated. 2. Continue to limit portions. 3. Increase intake of non starchy vegetables and fruits. FOLLOW-UP PLAN 1. Follow-up visit: May 2. Monitor progress towards achievement of patient's SMART goals 3. Assess comprehension and motivation based on dietary changes made 4. Monitor progress toward achievement of Clinical Outcome Goals: Weight, Labs CLINICAL OUTCOME GOALS: Indicator: Weight Criteria: Obese per BMI Goal: Weight loss of 1-2/#/week toward IBW by follow-up Progress: TBD at follow-up WHOLE HEALTH ====== WHOLE HEALTH EDUCATION ====== Whole Health Education was provided. /isaías/ LUANA CARNEY STAFF DIETITIAN Signed: 01/02/2025 09:03 LUANA CARNEY
--- NOTE | 2025-05-21 08:48 | EMG_ITS ---
Chief complaint: Repetitive vise [employer] use on right hand, 1 1/2 months ago, causing numbness on 4th (ulnar side) and 5th digits. Has difficulty with fine finger [employer]. Denies elbow pain. Denies neck pain. History of right carpal tunnel release at least 15 years ago and nerve repair to right 2nd digit 2013. Denies any symptoms pertaining to 1st to 3rd digits. On exam, no atrophy. No intrinsic hand weakness noted. Reason for referral: Evaluate for ulnar neuropathy Referred by: Benito ANDERSON Procedure done: Right upper extremity NCS/EMG Precautions and/or limitations: None The limb temperature was monitored continuously and remained between 32-36 degrees C during the performance of the NCS. Ulnar motor NCS was performed with moderate elbow flexion between 70-90 degrees, with across-elbow distance of 10 cm. Nerve Conduction Studies Anti Sensory Summary Table ?Stim Site NR Onset (ms) Norm Onset (ms) Peak (ms) Norm Peak (ms) O-P Amp (?V) Norm O-P Amp Site1 Site2 Delta-0 (ms) Dist (cm) Pedro Luis (m/s) Norm Pedro Luis (m/s) Right Lat Ante Brach Cutan Anti Sensory (Lat Forearm) Lat Biceps ? 0.9 1.4 3.0 Lat Biceps Lat Forearm 0.9 0.0 Right Med Ante Brach Cutan Anti Sensory (Med Forearm) Elbow ? 0.4 0.7 86.3 Elbow Med Forearm 0.4 0.0 Right Median Anti Sensory (2nd Digit) Wrist ? 4.3 5.2 <3.6 0.8 >10 Wrist 2nd Digit 4.3 14.0 33 Right Radial Anti Sensory (Thumb) Forearm ? 1.7 2.3 <3.1 16.0 Forearm Thumb 1.7 0.0 Right Ulnar Anti Sensory (5th Digit) Wrist NR <3.7 >15.0 Wrist 5th Digit 14.0 Motor Summary Table ?Stim Site NR Onset (ms) Norm Onset (ms) O-P Amp (mV) Norm O-P Amp iAmp (mV) Amp (1st) (%) Site1 Site2 Delta-0 (ms) Dist (cm) Pedro Luis (m/s) Norm Pedro Luis (m/s) Right Median Motor (Abd Poll Brev) Wrist ? 6.1 <3.9 7.8 >4.5 9.7 100.0 Elbow Wrist 5.0 24.0 48 >45 Elbow ? 11.1 7.3 9.3 93.6 Right Ulnar Motor (Abd Dig Minimi) Wrist ? 3.8 <3.0 6.3 >5 8.1 100.0 B Elbow Wrist 6.0 23.0 38 >45 B Elbow ? 9.8 5.1 6.8 81.0 A Elbow B Elbow 2.5 10.0 40 >45 A Elbow ? 12.3 5.6 7.8 88.9 Right Ulnar (FDI) Motor (FDI) Wrist ? 5.5 <3.0 5.6 >5 6.9 100.0 B Elbow Wrist 6.1 22.0 36 >45 B Elbow ? 11.6 4.3 5.2 76.8 A Elbow B Elbow 2.6 10.0 38 >45 A Elbow ? 14.2 5.3 6.5 94.6 EMG ?Side Muscle Nerve Root Ins Act Fibs Psw Amp Dur Poly Recrt Int Pat Comment Right 1stDorInt Ulnar C8-T1 Incr Nml Nml Nml Nml 0 Nml Complete Right FlexCarpiUln Ulnar C8,T1 Nml Nml Nml Nml Nml 0 Nml Complete Right Biceps Musculocut C5-6 Nml Nml Nml Nml Nml 0 Nml Complete Right Triceps Radial C6-7-8 Nml Nml Nml Nml Nml 0 Nml Complete Right Deltoid Axillary C5-6 Nml Nml Nml Nml Nml 0 Nml Complete Right Abd Poll Brev Median C8-T1 Nml Nml Nml Nml Nml 0 Nml Complete Right ABD Dig Min Ulnar C8-T1 Nml Nml Nml Nml Nml 0 Nml Complete Right ExtIndicis Radial (Post Int) C7-8 Nml Nml Nml Nml Nml 0 Nml Complete Paraspinal EMG ?Side Muscle Nerve Root Ins Act Fibs Psw Comment Right Cervical Upper Rami Nml Nml Nml Right Cervical Mid Rami Nml Nml Nml Right Cervical Lower Rami Nml Nml Nml FINDINGS: Right ulnar motor nerve, recording at [facility], showed prolonged distal latency, normal amplitude and slow conduction velocities. Same findings seen when recording at FDI.. Right median motor nerve showed prolonged distal latency, normal amplitude and normal conduction velocity. Right ulnar sensory nerve showed absent response. Right median sensory nerve showed prolonged peak latency and small amplitude. All other nerves tested were within normal. Concentric needle EMG was performed in selected muscles of the right upper extremity and cervical paraspinals. Study revealed signs of electric abnormalities as shown in the table above. Right FDI showed increased insertional activity but no PSWs or fibrillations. IMPRESSION: 1. This is an abnormal study. 2. There is electrodiagnostic evidence for acute right ulnar neuropathy at the wrist. 3. There is electrodiagnostic evidence for right moderate-severe median neuropathy at the wrist, consistent with Carpal Tunnel Syndrome. 4. There is no electrodiagnostic evidence for brachial plexopathy or cervical radiculopathy. CLINICAL COMMENT: 1. Right ulnar neuropathy at the wrist, particularly affecting deep palmar branch as EMG abnormality seen only on FDI muscle. 2. Findings of right Carpal Tunnel Syndrome, despite surgery 15 years ago. No past EMG available for comparison. Thank you for your kind referral. Alpa Cooper MD, LUISA Board Certified, [place] [employer] and [employer] (ABPMR) Board Certified, [place] [employer] Electro[employer] (ABEM) [place] [id number] [facility]
--- OUTSIDE RECORDS SUMMARY | 2025-05-21 09:00 | XMS_ITS | Continuity of Care Document ---
Author Name [facility] Organization [facility] Care Team Providers Care Data Typist Name Role Phone [facility] Unavailable Unavailable Problems Combined list of problems from Department of Defense and Veterans Affairs facilities. It does not include entries that were removed or entered in error. Problem Status Onset Date Problem Type Date of Resolution Comments Source Bladder cancer Active Condition May 272023 Entered By: VAL SWANSON Comment: Per U/S 12/23/23 - lateral wall of bladder - Pathology: low grade papillary urothelial carcinoma w/o invasionSep 2023 Entered By: VAL SWANSON Comment: 01/2024 TURBT w/stent - 03/15/24 stent removedSep 2023 Entered By: VAL SWANSON Comment: Dr Whitaker [facility] [place] Colonoscopy Screening Active Condition [place] History of squamous cell carcinoma of skin Active Condition Jun 20 Entered By: VAL SWANSON Comment: left mid dorsal ring finger - s/p MOHS surgery 03/27/24 [place] History Right Ankle Fracture Active Condition Jul 05, 2019 Entered By: VAL SWANSON Comment: 2011 - Hardware present - NICOLE [place] Hypertension Active Condition [facility] LD Mixed hyperlipidemia Active Condition [facility] D Obesity Active [facility] Prediabetes Active Condition [facility] Steatosis of liver Active Condition [place] 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 Jun 20, 2024 Entered By: VAL SWANSON Comment: Quit early 2023 [place] Vaping Active Condition [place] Blood chemistry abnormal (SNOMED CT [id number]) Inactive Condition 06/19/2018 [facility] Disorder of hip Inactive Condition 05/15/2017 [facility] Diagnosis: ICD-10-CM E66.812 Obesity, class 2 Active Diagnosis [facility] Diagnosis: ICD-10-CM I10 Essential (primary) hypertension Active Diagnosis [place] Diagnosis: ICD-10-CM E66.09 Other obesity due to excess calories Active Diagnosis [place] Diagnosis: ICD-10-CM C67.9 Malignant neoplasm of bladder, unspecified Active Diagnosis [place] Medications Combined list of outpatient medications from Department of Defense and Veterans Affairs facilities.Medications provided include 1) outpatient medications from the last 15 months, and 2) patient-reported medications. Medication Details Route Status Patient Instructions Prescription Expires Prescription Number Last Dispense Date Ordering Provider Order Date Order Qty Source ATORVASTATI N [place] 80MG TAB TAKE ONE-HALF TABLET BY MOUTH AT BEDTIME FOR CHOLESTE ROL ORAL ACTIVE 12/19/2025 [id number] SWETHA SWANSON SA 2024 45 [place] ATORVASTATI N CA 80MG TAB TAKE ONE-HALF TABLET BY MOUTH AT BEDTIME FOR CHOLESTE ROL ORAL DISCONT INUED 06/21/2025 [id number] SWETHA SWANSON SA 2023 45 [place] ATORVASTATI N CA 80MG TAB TAKE ONE-HALF TABLET BY MOUTH AT BEDTIME FOR CHOLESTE ROL ORAL DISCONT INUED 12/20/2024 [id number] SWETHA SWANSON SA 2023 45 [place] CHOLECALCIF SONG 25MCG (1,000UNIT) TAB TAKE ONE TABLET BY MOUTH ONCE DAILY ORAL ACTIVE SWETHA SWANSON SA 2019 [facility] DILTIAZEM (EQV-TIAZAC AB4) 240MG 24HR CAP TAKE ONE CAPSULE BY MOUTH DAILY ORAL ACTIVE 12/19/2025 [id number] 5 SWETHA SWANSON SA 2024 90 [place] DILTIAZEM (EQV-TIAZAC AB4) 240MG 24HR CAP TAKE ONE CAPSULE BY MOUTH DAILY ORAL DISCONT INUED 06/21/2025 [id number] SWETHA SWANSON SA 2023 90 [place] DILTIAZEM (EQV-TIAZAC AB4) 240MG 24HR CAP TAKE ONE CAPSULE BY MOUTH DAILY ORAL DISCONT INUED 10/03/2024 [id number] SWETHA SWANSON SA 2023 90 [facility] IELD FISH OIL 1000MG (500MG DHA/EPA) CAP,ORAL TAKE 2 CAPSULES BY MOUTH ONCE DAILY ORAL ACTIVE SWETHA SWANSON SA 2019 [facility] LISINOPRIL 10MG TAB TAKE ONE TABLET BY MOUTH ONCE DAILY TO CONTROL BLOOD PRESSURE ORAL ACTIVE 12/19/2025 [id number] 5 SWETHA SWANSON SA 2024 90 [facility] IELD LISINOPRIL 10MG TAB TAKE ONE TABLET BY MOUTH ONCE DAILY TO CONTROL BLOOD PRESSURE [facility] [id number] SWETHA SWANSON SA 2023 90 [facility] IELD LISINOPRIL 10MG TAB TAKE ONE TABLET BY MOUTH ONCE DAILY TO CONTROL BLOOD PRESSURE [facility] 12/20/2024 [id number] SWETHA SWANSON SA 2023 90 [facility] IE Immunizations Combined list of available immunizations from the Department of Defense and [facility] facilities. Immunization Series Date Given Administered By Site Reaction Lot Number CVX Code Drug Web Site Project Manager Status Comments Source ZOSTER RECOMBINANT 2024 MARCIE TELLEZ LEFT DELTO ID [id number] 187 complet ed Completed Series, ADMINISTE [facility] IELD TDAP 2022 FEDE [place] R RIGHT DELTO ID [id number] 115 complet ed [facility] INFLUENZA, INJECTABLE, QUADRIVALENT, PRESERVATIVE FREE 2022 FEDE [place] E R LEFT DELTO ID [id number] 150 complet ed [facility] ZOSTER RECOMBINANT 2022 FEDE [place] E R LEFT DELTO ID [id number] 187 complet ed [facility] PNEUMOCOCCAL CONJUGATE PCV20, POLYSACCHARID E [id number] CONJUGATE, ADJUVANT, PF 2021 216 complet ed [facility] IELD COVID-19 (MODERNA), MRNA, LNP-S, PF, 100 MCG/0.5 ML DOSE 2 2020 207 complet ed [facility] [place] [facility] [facility] COVID-19 (MODERNA), MRNA, LNP-S, PF, 100 MCG/0.5 ML DOSE 1 2020 207 complet ed [facility] [place] [facility] INFLUENZA, SEASONAL, INJECTABLE 2017 141 complet ed Site: Right Deltoid [place] INFLUENZA, SEASONAL, INJECTABLE 2016 141 complet ed NON [facility] [place] [facility] TDAP 2016 115 complet ed Site: Left Deltoid [place] FLU,3 YRS (HISTORICAL) 2014 88 complet ed Site: Left Deltoid [place] FLU,3 YRS (HISTORICAL) 2013 88 complet ed Site: Right Deltoid [place] PNEUMOCOCCAL, UNSPECIFIED FORMULATION 2012 109 complet ed [place] FLU,3 YRS (HISTORICAL) 2012 88 complet ed [facility] [place] [facility] [facility] TD(ADULT) UNSPECIFIED FORMULATION 2012 139 complet ed [facility] [place] [facility] [facility] FLU,3 YRS (HISTORICAL) 2011 88 complet ed [facility] [place] [facility] FLU VACCINE (HISTORICAL) 1 2000 CHRISTOPHER COX 88 complet ed [place] TD(ADULT) UNSPECIFIED FORMULATION 2000 CHRI[address] COX 139 complet ed [place] FLU VACCINE (HISTORICAL) 1999 88 complet ed [facility] Results Combined list of recent chemistry, hematology and other laboratory results from Department of Defense and Veterans Affairs, ranging from 15 months to all on record, depending upon the facility. Order Name Results Value Reference Range Date Interpretation Specimen Comments Source LIPID PANEL FASTING CHOLESTEROL [MASS/VOLUM E] IN SERUM OR PLASMA 148 mg/dL 12/13 Specimen Type: SERUM No comment entered. Ordering Provider: VAL SWANSON Report Released Date/Time: Jun 20, 2024 06:32 AM Reporting Lab: [address] [address] Performing Lab: [facility] [address] [facility] [address] [facility] LIPID PANEL FASTING TRIGLYCERID E [MASS/VOLUM E] IN SERUM OR PLASMA 130 mg/dL 0 - 150 12/13 Specimen Type: SERUM No comment entered. Ordering Provider: VAL SWANSON Report Released Date/Time: Jun 20, 2024 06:32 AM Reporting Lab: [facility] [place] [facility] [address] [facility] [address] Performing Lab: [facility] [place] [facility] [address] [facility] [address] [facility] [place] [facility] LIPID PANEL FASTING CHOLESTEROL IN LDL [MASS/VOLUM E] IN SERUM OR PLASMA BY CALCULATION 87 mg/dL 0 - 129 12/13 Specimen Type: SERUM No comment entered. Ordering Provider: VAL SWANSON Report Released Date/Time: Jun 20, 2024 06:32 AM Reporting Lab: [facility] [place] [address] [address] Performing Lab: [facility] [place] [address] [address] [facility] [place] [facility] LIPID PANEL FASTING CHOLESTEROL .TOTAL/CHOL ESTEROL IN HDL [MASS RATIO] IN SERUM OR PLASMA 4.2 12/13 Specimen Type: SERUM No comment entered. Ordering Provider: VAL SWANSON Report Released Date/Time: Jun 20, 2024 06:32 AM Reporting Lab: [facility] [place] [facility] [address] [facility] [address] Performing Lab: [facility] [place] [address] [address] [facility] [place] [facility] LIPID PANEL FASTING CHOLESTEROL IN HDL [MASS/VOLUM E] IN SERUM OR PLASMA 35 mg/dL 40 - 60 12/13 L Specimen Type: SERUM No comment entered. Ordering Provider: VAL SWANSON Report Released Date/Time: Jun 20, 2024 06:32 AM Reporting Lab: [facility] [place] [facility] [address] [facility] [address] Performing Lab: [facility] [place] [facility] [address] [facility] [address] [facility] [place] [facility] LIVER FUNCTION PROTEIN [MASS/VOLUM E] IN SERUM OR PLASMA 7.4 g/dL 6.0 - 8.3 12/13 Specimen Type: SERUM No comment entered. Ordering Provider: VAL SWANSON Report Released Date/Time: Jun 20, 2024 06:32 AM Reporting Lab: [facility] [place] [facility] [address] [facility] [address] Performing Lab: [facility] [place] [facility] [address] [facility] [address] [facility] [place] [facility] LIVER FUNCTION ALBUMIN [MASS/VOLUM E] IN SERUM OR PLASMA 4.1 g/dL 3.5 - 5.0 12/13 Specimen Type: SERUM No comment entered. Ordering Provider: VAL SWANSON Report Released Date/Time: Jun 20, 2024 06:32 AM Reporting Lab: [facility] [place] [facility] [address] [facility] [address] Performing Lab: [facility] [place] [facility] [address] [facility] [address] [facility] [place] [facility] LIVER FUNCTION ALKALINE PHOSPHATASE [ENZYMATIC ACTIVITY/VO LUME] IN SERUM OR PLASMA 68 U/L 40 - 150 12/13 Specimen Type: SERUM No comment entered. Ordering Provider: VAL SWANSON Report Released Date/Time: Jun 20, 2024 06:32 AM Reporting Lab: [facility] [place] [facility] [address] [facility] [address] Performing Lab: [facility] [place] [facility] [address] [facility] [address] [facility] [place] [facility] LIVER FUNCTION ASPARTATE AMINOTRANSF ERASE [ENZYMATIC ACTIVITY/VO LUME] IN SERUM OR PLASMA 19 U/L 5 - 34 12/13 Specimen Type: SERUM No comment entered. Ordering Provider: VAL SWANSON Report Released Date/Time: Jun 20, 2024 06:32 AM Reporting Lab: [facility] [place] [address] [facility] [address] Performing Lab: [facility] [place] [facility] [address] [facility] [address] [facility] [place] [facility] LIVER FUNCTION ALANINE AMINOTRANSF ERASE [ENZYMATIC ACTIVITY/VO LUME] IN SERUM OR PLASMA 34 U/L 12/13 Specimen Type: SERUM No comment entered. Ordering Provider: VAL SWANSON Report Released Date/Time: Jun 20, 2024 06:32 AM Reporting Lab: [facility] [address] [facility] [address] Performing Lab: [facility] [address] [facility]ITALN [facility] LIVER FUNCTION BILIRUBIN.T OTAL [MASS/VOLUM E] IN SERUM OR PLASMA 0.5 mg/dL 0.2 - 1.2 12/13 Specimen Type: SERUM No comment entered. Ordering Provider: VAL SWANSON Report Released Date/Time: Jun 20, 2024 06:32 AM Reporting Lab: [facility] TRN [place] [address] Performing Lab: [facility] [address] [facility] HEMOGLOBI N A1C PANEL HEMOGLOBIN A1C/HEMOGLO BIN.TOTAL IN BLOOD BY HPLC 5.5 4.0 - 5.6 12/13 Specimen Type: BLOOD Comment: Values obtained from A1C measurement s can vary. For atypical A1C assays, a reported value of 7.0 could actually be between 6.72 and 7.28 if measured by a reference method. A reported value of 9.0 could actually be between 8.73 and 9.27. Ref: http://[email or web address].org/[place] Pdata.asp Ordering Provider: VAL SWANSON Report Released Date/Time: Jun 20, 2024 06:32 AM Reporting Lab: [facility]OSPITALN [address] [address] Performing Lab: [facility] [place] [facility] [address] [facility] [address] [facility] BASIC METABOLIC PANEL (fasting) UREA NITROGEN [MASS/VOLUM E] IN SERUM OR PLASMA 14 mg/dL 7 - 25 12/13 Specimen Type: SERUM No comment entered. Ordering Provider: VAL SWANSON Report Released Date/Time: Jun 20, 2024 06:32 AM Reporting Lab: [facility] [place] [place] [facility] [address] [facility] [address] Performing Lab: [facility] [place] [facility] [address] [facility] [address] [facility] [place] [facility] BASIC METABOLIC PANEL (fasting) GLUCOSE [MASS/VOLUM E] IN SERUM OR PLASMA 112 mg/dL 65 - 100 12/13 H Specimen Type: SERUM No comment entered. Ordering Provider: VAL SWANSON Report Released Date/Time: Jun 20, 2024 06:32 AM Reporting Lab: [facility] [place] [address] [address] Performing Lab: [facility] [place] [address] [address] [facility] [place] [facility] BASIC METABOLIC PANEL (fasting) SODIUM [MOLES/VOLU ME] IN SERUM OR PLASMA 137 mmol/L 135 - 145 12/13 Specimen Type: SERUM No comment entered. Ordering Provider: VAL SWANSON Report Released Date/Time: Jun 20, 2024 06:32 AM Reporting Lab: [facility] [place] [facility] [address] [facility] [address] Performing Lab: [facility] [place] [address] [address] [facility] [place] [facility] BASIC METABOLIC PANEL (fasting) POTASSIUM [MOLES/VOLU ME] IN SERUM OR PLASMA 4.5 mmol/L 3.5 - 5.0 12/13 Specimen Type: SERUM No comment entered. Ordering Provider: VAL SWANSON Report Released Date/Time: Jun 20, 2024 06:32 AM Reporting Lab: [facility] [place] [address] [place] [address] Performing Lab: [facility] [place] [facility] [address] [facility] [address] [facility]USE [facility] BASIC METABOLIC PANEL (fasting) CHLORIDE [MOLES/VOLU ME] IN SERUM OR PLASMA 107 mmol/L 100 - 110 12/13 Specimen Type: SERUM No comment entered. Ordering Provider: VAL SWANSON Report Released Date/Time: Jun 20, 2024 06:32 AM Reporting Lab: [facility] [place] [facility] [address] [facility] [address] Performing Lab: [facility]ENTERUSE[address] [address] [facility]ITALR[facility]OSPITALN [facility] BASIC METABOLIC PANEL (fasting) CARBON DIOXIDE, TOTAL [MOLES/VOLU ME] IN SERUM OR PLASMA 25 meq/L 20 - 30 12/13 Specimen Type: SERUM No comment entered. Ordering Provider: VAL SWANSON Report Released Date/Time: Jun 20, 2024 06:32 AM Reporting Lab: [facility]ENTERUSETS [facility] [address] [facility] [address] Performing Lab: [facility]ENTERUSETS [facility] [address] [facility] [address] [facility]OSPITALN [facility] BASIC METABOLIC PANEL (fasting) CALCIUM [MASS/VOLUM E] IN SERUM OR PLASMA 9.1 mg/dL 8.5 - 10.2 12/13 Specimen Type: SERUM No comment entered. Ordering Provider: VAL SWANSON Report Released Date/Time: Jun 20, 2024 06:32 AM Reporting Lab: [facility] [place] [facility] [address] [facility] [address] Performing Lab: [facility]ENTERUSETS [facility] [address] [facility] [address] [facility]OSPITALN [facility]ENTERUSE [facility] BASIC METABOLIC PANEL (fasting) CREATININE [MASS/VOLUM E] IN SERUM OR PLASMA 0.77 mg/dL 0.50 - 1.40 12/13 Specimen Type: SERUM No comment entered. Ordering Provider: VAL SWANSON Report Released Date/Time: Jun 20, 2024 06:32 AM Reporting Lab: [facility] [place] [facility] [address] [facility] [address] Performing Lab: [facility] [place] [facility] [address] [facility] [address] [facility] [place] [facility] BASIC METABOLIC PANEL (fasting) GLOMERULAR FILTRATION RATE/1.73 SQ M.PREDICTED [VOLUME RATE/AREA] IN SERUM, PLASMA OR BLOOD BY CREATININE- BASED FORMULA (CKD-EPI 2020) >90mL/ min 60 12/13 Specimen Type: SERUM No comment entered. Ordering Provider: VAL SWANSON Report Released Date/Time: Jun 20, 2024 06:32 AM Reporting Lab: [facility] [place] [facility] [address] [facility] [address] Performing Lab: [facility] [place] [address] [address] [facility] [place] [facility] PSA PROSTATE SPECIFIC AG [MASS/VOLUM E] IN SERUM OR PLASMA 1.06 ng/mL 0.00 - 4.00 06/13 Specimen Type: SERUM No comment entered. Ordering Provider: VAL SWANSON Report Released Date/Time: Dec 20, 2023 05:37 AM Reporting Lab: [facility] [place] [facility] [address] [facility] [address] Performing Lab: [facility] [place] [facility] [address] [facility] [address] [facility] [place] [facility] TSH THYROTROPIN [UNITS/VOLU ME] IN SERUM OR PLASMA 2.72 u[IU]/ mL 0.35 - 5.00 06/13 Specimen Type: SERUM No comment entered. Ordering Provider: VAL SWANSON Report Released Date/Time: Dec 20, 2023 05:37 AM Reporting Lab: [facility] [place] [facility] [address] [facility] [address] Performing Lab: [facility] [place] [facility] [address] [facility] [address] [facility] [place] [facility] HEMOGLOBI N A1C PANEL HEMOGLOBIN A1C/HEMOGLO BIN.TOTAL IN BLOOD BY HPLC 5.5 4.0 - 5.6 06/13 Specimen Type: BLOOD Comment: Values obtained from A1C measurement s can vary. For atypical A1C assays, a reported value of 7.0 could actually be between 6.72 and 7.28 if measured by a reference method. A reported value of 9.0 could actually be between 8.73 and 9.27. Ref: http://[email or web address]. [email or web address].org/[place] Pdata.asp Ordering Provider: VAL SWANSON Report Released Date/Time: Dec 20, 2023 05:37 AM Reporting Lab: [address] [address] Performing Lab: [address] [address] [facility] LIPID PANEL FASTING CHOLESTEROL [MASS/VOLUM E] IN SERUM OR PLASMA 180 mg/dL 06/13 Specimen Type: SERUM No comment entered. Ordering Provider: VAL SWANSON Report Released Date/Time: Dec 20, 2023 05:37 AM Reporting Lab: [address] [address] Performing Lab: [facility] [address] [address] [facility] LIPID PANEL FASTING TRIGLYCERID E [MASS/VOLUM E] IN SERUM OR PLASMA 180 mg/dL 0 - 150 06/13 H Specimen Type: SERUM No comment entered. Ordering Provider: VAL SWANSON Report Released Date/Time: Dec 20, 2023 05:37 AM Reporting Lab: [facility]N [facility]USE[address] [address] Performing Lab: [facility]N [facility]ENTERUSE[address] [address] [facility] LIPID PANEL FASTING CHOLESTEROL IN LDL [MASS/VOLUM E] IN SERUM OR PLASMA BY CALCULATION 107 mg/dL 0 - 129 06/13 Specimen Type: SERUM No comment entered. Ordering Provider: VAL SWANSON Report Released Date/Time: Dec 20, 2023 05:37 AM Reporting Lab: [facility] [facility] [address] [facility] [address] Performing Lab: [facility] [facility] [address] [facility] [address] [facility] [place] [facility] LIPID PANEL FASTING CHOLESTEROL .TOTAL/CHOL ESTEROL IN HDL [MASS RATIO] IN SERUM OR PLASMA 4.9 06/13 Specimen Type: SERUM No comment entered. Ordering Provider: VAL SWANSON Report Released Date/Time: Dec 20, 2023 05:37 AM Reporting Lab: [facility] [place] [facility] [address] [facility] [address] Performing Lab: [facility] [place] [facility] [address] [facility] [address] [facility] [place] [facility] LIPID PANEL FASTING CHOLESTEROL IN HDL [MASS/VOLUM E] IN SERUM OR PLASMA 37 mg/dL 40 - 60 06/13 L Specimen Type: SERUM No comment entered. Ordering Provider: VAL SWANSON Report Released Date/Time: Dec 20, 2023 05:37 AM Reporting Lab: [facility] [place] [facility] [address] [facility] [address] Performing Lab: [facility] [place] [facility] [address] [facility] [address] [facility] [place] [facility] LIVER FUNCTION PROTEIN [MASS/VOLUM E] IN SERUM OR PLASMA 7.1 g/dL 6.0 - 8.3 06/13 Specimen Type: SERUM No comment entered. Ordering Provider: VAL SWANSON Report Released Date/Time: Dec 20, 2023 05:37 AM Reporting Lab: [facility] [place] [facility] [address] [facility] [phone] Performing Lab: [facility] [place] [facility] [address] [facility] [address] [facility] [place] [facility] LIVER FUNCTION ALBUMIN [MASS/VOLUM E] IN SERUM OR PLASMA 4.2 g/dL 3.5 - 5.0 06/13 Specimen Type: SERUM No comment entered. Ordering Provider: VAL SWANSON Report Released Date/Time: Dec 20, 2023 05:37 AM Reporting Lab: [facility] [place] [facility] [address] [facility] [phone] Performing Lab: [facility] [place] [facility] [address] [facility] [phone] [facility] [place] [facility] LIVER FUNCTION ALKALINE PHOSPHATASE [ENZYMATIC ACTIVITY/VO LUME] IN SERUM OR PLASMA 67 U/L 40 - 150 06/13 Specimen Type: SERUM No comment entered. Ordering Provider: VAL SWANSON Report Released Date/Time: Dec 20, 2023 05:37 AM Reporting Lab: [facility] [place] [facility] [address] [facility] [phone] Performing Lab: [facility] [place] [facility] [address] [facility] [address] [facility] LIVER FUNCTION ASPARTATE AMINOTRANSF ERASE [ENZYMATIC ACTIVITY/VO LUME] IN SERUM OR PLASMA 16 U/L 5 - 34 06/13 Specimen Type: SERUM No comment entered. Ordering Provider: VAL SWANSON Report Released Date/Time: Dec 20, 2023 05:37 AM Reporting Lab: [facility] [address] [facility] [address] Performing Lab: [facility] [address] [facility] [address] [facility] LIVER FUNCTION ALANINE AMINOTRANSF ERASE [ENZYMATIC ACTIVITY/VO LUME] IN SERUM OR PLASMA 24 U/L 06/13 Specimen Type: SERUM No comment entered. Ordering Provider: VAL SWANSON Report Released Date/Time: Dec 20, 2023 05:37 AM Reporting Lab: [facility] [address] [facility] [address] Performing Lab: [facility] [address] [facility] [address] [facility] LIVER FUNCTION BILIRUBIN.T OTAL [MASS/VOLUM E] IN SERUM OR PLASMA 0.4 mg/dL 0.2 - 1.2 06/13 Specimen Type: SERUM No comment entered. Ordering Provider: VAL SWANSON Report Released Date/Time: Dec 20, 2023 05:37 AM Reporting Lab: [facility] [address] [facility] [address] Performing Lab[facility] [address] [address] [facility] CBC AND DIFF (AUTO) LEUKOCYTES [#/VOLUME] IN BLOOD BY AUTOMATED COUNT 6.55 10*3/u L 4.50 - 11.00 06/13 Specimen Type: BLOOD No comment entered. Ordering Provider: VAL SWANSON Report Released Date/Time: Dec 20, 2023 05:37 AM Reporting Lab: [facility] [address] [address] Performing Lab: [facility] [address] [address] [facility] CBC AND DIFF (AUTO) ERYTHROCYTE S [#/VOLUME] IN BLOOD BY AUTOMATED COUNT 5.50 10*6/u L 4.23 - 5.66 06/13 Specimen Type: BLOOD No comment entered. Ordering Provider: VAL SWANSON Report Released Date/Time: Dec 20, 2023 05:37 AM Reporting Lab: [facility] [address] [address] Performing Lab: [facility] [address] [address] [facility] CBC AND DIFF (AUTO) HEMOGLOBIN [MASS/VOLUM E] IN BLOOD 15.6 g/dL 12.8 - 17 06/13 Specimen Type: BLOOD No comment entered. Ordering Provider: VAL SWANSON Report Released Date/Time: Dec 20, 2023 05:37 AM Reporting Lab: [facility] [address] [address] Performing Lab: [facility] [address] [place] [address] [facility] CBC AND DIFF (AUTO) HEMATOCRIT [VOLUME FRACTION] OF BLOOD BY AUTOMATED COUNT 47.9 39.2 - 50.4 06/13 Specimen Type: BLOOD No comment entered. Ordering Provider: VAL SWANSON Report Released Date/Time: Dec 20, 2023 05:37 AM Reporting Lab: [facility] [facility] [address] [facility] [address] Performing Lab: [facility] [facility] [address] [facility] [address] [facility] CBC AND DIFF (AUTO) MCV [ENTITIC VOLUME] BY AUTOMATED COUNT 87.1 fL 82 - 99 06/13 Specimen Type: BLOOD No comment entered. Ordering Provider: VAL SWANSON Report Released Date/Time: Dec 20, 2023 05:37 AM Reporting Lab: [facility] [facility] [address] [facility] [address] Performing Lab: [facility] [place] [facility] [address] [facility] [address] [facility] CBC AND DIFF (AUTO) MCHC [MASS/VOLUM E] BY AUTOMATED COUNT 32.6 g/dL 30.8 - 35.1 06/13 Specimen Type: BLOOD No comment entered. Ordering Provider: VAL SWANSON Report Released Date/Time: Dec 20, 2023 05:37 AM Reporting Lab: [facility] [place] [facility] [address] [facility] [address] Performing Lab: [facility] [facility] [address] [facility] [address] [facility] CBC AND DIFF (AUTO) PLATELETS [#/VOLUME] IN BLOOD BY AUTOMATED COUNT 196 10*3/u L 140 - 360 06/13 Specimen Type: BLOOD No comment entered. Ordering Provider: VAL SWANSON Report Released Date/Time: Dec 20, 2023 05:37 AM Reporting Lab: [facility] [place] [facility] [address] [facility] [address] Performing Lab: [facility] [address] [facility] [address] [facility] CBC AND DIFF (AUTO) ERYTHROCYTE DISTRIBUTIO N WIDTH [RATIO] BY AUTOMATED COUNT 14.9 12.0 - 16.0 06/13 Specimen Type: BLOOD No comment entered. Ordering Provider: VAL SWANSON Report Released Date/Time: Dec 20, 2023 05:37 AM Reporting Lab: [facility] [address] [facility] [address] Performing Lab: [facility] [facility] [address] [facility] [address] [facility] CBC AND DIFF (AUTO) MONOCYTES [#/VOLUME] IN BLOOD BY AUTOMATED COUNT 0.59 10*3/u L 0.30 - 1.10 06/13 Specimen Type: BLOOD No comment entered. Ordering Provider: VAL SWANSON Report Released Date/Time: Dec 20, 2023 05:37 AM Reporting Lab: [facility] [address] [facility] [address] Performing Lab: [facility] [facility] [address] [facility] [address] [facility] CBC AND DIFF (AUTO) MCH [ENTITIC MASS] BY AUTOMATED COUNT 28.4 pg 26.2 - 32.6 06/13 Specimen Type: BLOOD No comment entered. Ordering Provider: VAL SWANSON Report Released Date/Time: Dec 20, 2023 05:37 AM Reporting Lab: [facility] [address] [facility] [address] Performing Lab: [facility] [address] [facility] [address] [facility] CBC AND DIFF (AUTO) NEUTROPHILS /100 LEUKOCYTES IN BLOOD BY AUTOMATED COUNT 56.6 43.7 - 75.8 06/13 Specimen Type: BLOOD No comment entered. Ordering Provider: VAL SWANSON Report Released Date/Time: Dec 20, 2023 05:37 AM Reporting Lab: [facility] [address] [facility] [address] Performing Lab: [facility] [address] [facility] [address] [facility] CBC AND DIFF (AUTO) LYMPHOCYTES /100 LEUKOCYTES IN BLOOD BY AUTOMATED COUNT 31.3 14.0 - 42.3 06/13 Specimen Type: BLOOD No comment entered. Ordering Provider: VAL SWANSON Report Released Date/Time: Dec 20, 2023 05:37 AM Reporting Lab: [facility] [facility] [address] [facility] [address] Performing Lab: [facility] [address] [facility] [address] [facility] CBC AND DIFF (AUTO) MONOCYTES/1 00 LEUKOCYTES IN BLOOD BY AUTOMATED COUNT 9.0 5.1 - 13.7 06/13 Specimen Type: BLOOD No comment entered. Ordering Provider: VAL SWANSON Report Released Date/Time: Dec 20, 2023 05:37 AM Reporting Lab: [facility] [address] [facility] [address] Performing Lab: [facility] [address] [facility] [address] [facility] CBC AND DIFF (AUTO) EOSINOPHILS /100 LEUKOCYTES IN BLOOD BY AUTOMATED COUNT 2.0 0.4 - 6.8 06/13 Specimen Type: BLOOD No comment entered. Ordering Provider: VAL SWANSON Report Released Date/Time: Dec 20, 2023 05:37 AM Reporting Lab: [facility] [address] [facility] [address] Performing Lab: [facility] [address] [facility] [address] [facility] CBC AND DIFF (AUTO) BASOPHILS/1 00 LEUKOCYTES IN BLOOD BY AUTOMATED COUNT 0.8 0.1 - 2.0 06/13 Specimen Type: BLOOD No comment entered. Ordering Provider: VAL SWANSON Report Released Date/Time: Dec 20, 2023 05:37 AM Reporting Lab: [facility] [address] [facility] [address] Performing Lab: [facility] [address] [facility] [address] [facility] CBC AND DIFF (AUTO) NEUTROPHILS [#/VOLUME] IN BLOOD BY AUTOMATED COUNT 3.71 10*3/u L 2.20 - 7.60 06/13 Specimen Type: BLOOD No comment entered. Ordering Provider: VAL SWANSON Report Released Date/Time: Dec 20, 2023 05:37 AM Reporting Lab: [facility] [address] [facility] [address] Performing Lab: [facility] [address] [facility] [address] [facility] CBC AND DIFF (AUTO) LYMPHOCYTES [#/VOLUME] IN BLOOD BY AUTOMATED COUNT 2.05 10*3/u L 1.00 - 3.20 06/13 Specimen Type: BLOOD No comment entered. Ordering Provider: VAL SWANSON Report Released Date/Time: Dec 20, 2023 05:37 AM Reporting Lab: [facility] [address] [facility] [address] Performing Lab: [facility] [address] [facility] [address] [facility] CBC AND DIFF (AUTO) EOSINOPHILS [#/VOLUME] IN BLOOD BY AUTOMATED COUNT 0.13 10*3/u L 0.03 - 0.44 06/13 Specimen Type: BLOOD No comment entered. Ordering Provider: VAL SWANSON Report Released Date/Time: Dec 20, 2023 05:37 AM Reporting Lab: [facility] [address] [facility] [address] Performing Lab: [facility] [address] [facility] [address] [facility] CBC AND DIFF (AUTO) BASOPHILS [#/VOLUME] IN BLOOD BY AUTOMATED COUNT 0.05 10*3/u L 0.01 - 0.13 06/13 Specimen Type: BLOOD No comment entered. Ordering Provider: VAL SWANSON Report Released Date/Time: Dec 20, 2023 05:37 AM Reporting Lab: [facility] [place] [facility] [address] [facility] [address] Performing Lab: [facility] [place] [facility] [address] [facility] [address] [facility] CBC AND DIFF (AUTO) IMMATURE GRANULOCYTE S/100 LEUKOCYTES IN BLOOD BY AUTOMATED COUNT 0.3 0.0 - 0.7 06/13 Specimen Type: BLOOD No comment entered. Ordering Provider: VAL SWANSON Report Released Date/Time: Dec 20, 2023 05:37 AM Reporting Lab: [facility] [address] [address] Performing Lab: [facility] [place] [facility] [address] [facility] [address] [facility] CBC AND DIFF (AUTO) IMMATURE GRANULOCYTE S [#/VOLUME] IN BLOOD 0.02 10*3/u L 0.00 - 0.06 06/13 Specimen Type: BLOOD No comment entered. Ordering Provider: VAL SWANSON Report Released Date/Time: Dec 20, 2023 05:37 AM Reporting Lab: [facility] [place] [facility] [address] [facility] [address] Performing Lab: [facility] [place] [facility] [address] [facility] [address] [facility] CBC AND DIFF (AUTO) NRBC % 0.0 0.0 - 0.0 06/13 Specimen Type: BLOOD No comment entered. Ordering Provider: VAL SWANSON Report Released Date/Time: Dec 20, 2023 05:37 AM Reporting Lab: [facility] [address] [address] Performing Lab: [facility] [place] [facility] [address] [facility] [address] [facility] CBC AND DIFF (AUTO) NRBC, ABS 0.00 10*3/u L 0.00 - 0.00 06/13 Specimen Type: BLOOD No comment entered. Ordering Provider: VAL SWANSON Report Released Date/Time: Dec 20, 2023 05:37 AM Reporting Lab: [facility] [address] [facility] [address] Performing Lab: [facility] [address] [facility] [address] [facility] Vital Signs Combined list of inpatient and outpatient Vital Signs from Department of Defense and Veterans Affairs, ranging from 12 months to all on record, depending upon the facility. Vital Sign Value Date Comments Source WEIGHT 256.5 12/30/2024 10:02:37 [facility] BMI 35 kg/m2 12/30/2024 10:02:37 [facility] SYSTOLIC BLOOD PRESSURE 128 12/19/19 25 09:11:00 [facility] DIASTOLIC BLOOD PRESSURE 87 025 09:11:00 [facility] PULSE OXIMETRY 97 12/18/2024 09:11:00 [facility] WEIGHT 261.8 12/18/2024 09:11:00 [facility] BMI 36 kg/m2 12/18/2024 09:11:00 [facility] TEMPERATURE 97.9 12/18/2024 09:11:00 [facility] PULSE 92 12/18/2024 09:11:00 [facility] RESPIRATION 18 12/18/2024 09:11:00 [facility] WEIGHT 261.4 07/01/2024 10:01:53 [facility] BMI 36 kg/m2 07/01/2024 10:01:53 [facility] SYSTOLIC BLOOD PRESSURE 129 06/20/20 24 09:00:01 [facility] DIASTOLIC BLOOD PRESSURE 82 024 09:00:01 [facility] PULSE OXIMETRY 97 06/20/2024 09:00:01 [facility] WEIGHT 257 06/20/2024 09:00:01 [facility] BMI 35 kg/m2 06/20/2024 09:00:01 [facility] PAIN 0 06/20/2024 09:00:01 [facility] HEIGHT 72 06/20/2024 09:00:01 [facility] TEMPERATURE 98.3 06/20/2024 09:00:01 [facility] PULSE 85 06/20/2024 09:00:01 [facility] RESPIRATION 16 06/20/2024 09:00:01 [facility] Encounters Combined list of: 1) Encounters from Department of Veterans Affairs facilities going backup to the last 18 months, not all VA inpatient encounters are included; 2) Encounters from the Department of Defense facilities going backup to 280 months. Location Location Details Encounter Type Encounter Number Reason For Visit Attending Provider ADM Date DC Date Status Disposition Source [facility] Encounter [id number] 12/10 [facility] Out[facility] Encounter [id number] 12/19 [facility] [place] [facility] O/P EST MOD 30 MIN [id number] Diagnos is: ICD-10- CM I10 Essenti al (primar y) hyperte nsISIS Tidwell 12/19 [place] [facility] Out[facility] Encounter [id number] 12/22 [facility]counter [id number] 12/24 [facility] Out[facility] Encounter [id number] 12/24 [facility] Out[facility] Encounter [id number] 12/31 [facility] Out[facility]counter [id number] 12/31 [facility] En[facility] [id number] 01/02 [facility] [place] [id number] Diagnos is: ICD-10- CM E66.09 Other obesity due to excess calorie s NATHANIEL CARNEY 01/14 [facility] [place] [facility] Out[facility] Encounter [id number] 01/24 [facility] Out[facility] Encounter [id number] 01/24 [facility] Encounter [id number] 02/01 [facility] Out[facility] Encounter [id number] 02/05 [facility] Encounter [id number] 02/11 [facility] Out[facility] Encounter [id number] 02/20 [facility] Out[facility] Encounter [id number] 03/05 [facility] Out[facility] Encounter [id number] 03/15 [facility] Out[facility] Encounter [id number] 03/27 [facility] Out[facility] Encounter [id number] 04/03 [facility] Out[facility] Encounter [id number] [facility] Encounter [id number] 05/15 [facility] Out[facility] Encounter [id number] 05/21 [facility] Out[facility] Encounter [id number] 05/28 [facility] Out[facility] Encounter [id number] 06/04 [facility] Out[facility] Encounter [id number] 06/07 [facility] Out[facility] Encounter [id number] 06/11 [facility] Out[facility] Encounter [id number] 06/20 [facility] Encounter [id number] 1.06/20 [facility] OFFICE O/P EST MOD 30 MIN [id number] Diagnos is: ICD-10- CM C67.9 Maligna nt neoplas m of bladder , unspeci fied ISIS SWANSON 06/20 [place] [facility] Out[facility] Encounter [id number] 1.06/25 [facility] MED NUTRITION INDIV SUBSEQ [id number] Diagnos is: ICD-10- CM E66.09 Other obesity due to excess calorie s NATHANIEL CARNEY 07/01 [place] [facility] Outpatient Encounter [id number] 08/15 [facility] Out[facility] Encounter [id number] 09/27 [facility] Out[facility] Encounter [id number] 12/12 [facility] Outpatient Encounter [id number] 12/18 [facility] OFFICE O/P EST MOD 30 MIN [id number] Diagnos is: ICD-10- CM I10 Essenti al (primar y) hyperte nsISIS Tidwell 12/18 [facility] [place] [facility] Outpatient Encounter [id number] 12/25 [facility] MED NUTRITION INDIV SUBSEQ [id number] Diagnos is: ICD-10- CM E66.812 Obesity , class 2 NATHANIEL CARNEY P 12/30 [facility] [place] [facility] Outpatient Encounter [id number] 12/31 [facility] Outpatient [facility]counter [id number] 04/07 [facility] [place] Outpatient [facility]counter [id number] 04/08 [facility] [place] Outpatient [facility]counter [id number] 04/10 [facility] [place] Outpatient Encounter [id number] 05/08 [facility] Social History Combined list of available smoking, tobacco, and other social history from Department of Defense and Veterans Affairs facilities. Social History Type Response Date Comment Source Tobacco smoking status [facility]-TOBACCO QUIT 1 TO < 5 YRS 06/20/2024 [place] History of tobacco use [facility] FORMER USER 06/20/2024 [place] History of tobacco use [facility]-TO[facility] USER EVERY DAY 06/21/2023 [place] History of tobacco use [facility] DOESNT USE [place] 30 MIN WAKEUP 05/19/2022 [place] History of tobacco use [facility]-TO[facility]ACCO USER EVERY DAY 05/20/2021 [place] History of tobacco use [facility] NEVER USED 03/31/2020 [facility] History of tobacco use CURRENT SMOKER 06/19/2018 [place] History of tobacco use CURRENT SMOKER 11/22/2017 1/2 pack - 1 pack daily [place] History of tobacco use CURRENT SMOKER 05/15/2017 1/2-1 pack daily, started at age 23 [place] History of tobacco use V1-PT NOT INTERESTED IN QUIT TOBACCO USE 05/13/2016 [place] History of tobacco use CURRENT SMOKER 09/14/2015 smokes about a ppd of cigaretts [place] History of tobacco use CURRENT SMOKER 07/03/2014 smokes one ppd of cigaretts [place] History of tobacco use CURRENT SMOKER 03/08/2013 Pt. satted he smokes a pack a day. [place] History of tobacco use CURRENT SMOKER 11/17/2005 [place] History of tobacco use CURRENT SMOKER 11/17/2004 1ppd x 10yrs [place] History of tobacco use CURRENT SMOKER 01/04/2002 1 pack weekly...smoking 6-7 years [place] This section is an empty social history section. [facility] Plan of Care List of future care activities from [facility]. Additional future care activities may be listed in the Assessment and Plan section. Date/Time Care Activity Care Activity Detail Facili ty 06/09/2025 AMBULATORY - NONE AMBULATORY - NONE [place] [facility]
--- OUTSIDE RECORDS SUMMARY | 2025-05-21 09:02 | XMS_ITS | Encounter Summary ---
Author Organization [facility] Address [address] [place] [address] Care Team Providers Care Supervisor [employer] Name Role Phone Physician, Pcp Unknown Primary Care Provider Sharyn vailable Encounter Details Date Type Department Care Team (Late st Contact Info) Description 10/04/[address] [facility] - Main Lab [address] [place] [address] Hunter James MD [address] [facility] [address] [place] [phone] Malignant neoplasm of lateral wall of bladder [...] Associated Diagnosis Comments AP OUTSIDE CONSULT Routine 09/27/2024 12 :00 AM EST Malignant neoplasm of lateral wall of bladder (CMS/HCC) documented in this encounter Results * Anatomic pathology outside consult (09/27/2024 12:00 AM EST) Final Diagnosis A. Urine, Voided, ([id number]): Negative for high grade urothelial carcinoma Results of UroVysion fluorescence in situ hybridization (FISH) testing: CEP3: Normal CEP7: Normal CEP17: Normal LSI 9p21: Normal Interpretation: Normal profile Controls stained appropriately. Note: The results are intended as a screening device and should be interpreted in association with other clinical and pathological findings. 10/15/2024 11:09 AM EST [facility] Clinical Information Malignant neoplasm of lateral wall of bladder C67.2 Cytology/Urine FISH (now) 10/15/2024 11:09 AM EST [facility] Gross Description A. Urine, Voided, ([id number]): Received 1 TP (CYTO) 1 TP (FISH) 10/15/2024 11:09 AM [facility] Disclaimer Unless otherwise specified, all tissue is 10% NB formalin fixed and paraffin embedded. Technical pathology services provided by [facility] at [address] [facility] [address] [address] [facility] [address], [place] [address] (CLIA #[id number]/Galilea Delacruz MD, Job Service Specialist) 10/15/2024 11:09 AM [facility] Tissue Urine specimen from urethra / Unknown 09/27/2024 10/04/2024 2:10 PM EST us Hunter Jaems MD LAB PATHOLOGY ORDERABLES Final Result [facility] [address] [place] [address], documented in this encounter Visit Diagnoses Diagnosis Malignant neoplasm of lateral wall of bladder (CMS/HCC V24, CMS/HCC V28) Malignant neoplasm of lateral wall of urinary bladder documented in this encounter Care Teams Supervisor [employer] Relationship Specialty Start Date End Date Physician, Pcp Unknown PCP - General 01/03/25 documented as of this encounter
--- OUTSIDE RECORDS SUMMARY | 2025-05-21 09:02 | XMS_ITS | Clinical Summary ---
Author Organization 299 [facility] Address [address] [place] [address] Phone Care Team Providers Care Incident Coordinator Name Role Phone Physician, Pcp Unknown Primary Care Provider Sharyn vailable Encounters Date Type Department Care Team Description 04/15/2025 Lab Requisition [facility] - Main Lab [address] [place] [address] Hunter James MD Malignant neoplasm of lateral wall of bladder (CMS/HCC V24, CMS/HCC V28) from Last 3 Months Social History Tobacco Use Types Packs/Day Years Used Date Smoking Tobacco: Never Assessed Sex and Gender Information Value Date Recorded Sex Assigned at Not on file Legal Sex Male 2:06 PM EST Gender Identity Not on file Sexual Orientation Not on file Plan of Treatment Health Maintenance Due Date Last Done Comments DTaP,Tdap,and Td Vaccines (1 - Tdap) 12/26/1990 Hepatitis B Vaccines (1 of 3 - 19+ 3-dose series) 12/26/1990 Pneumococcal Vaccine: 50+ Ye ars (1 of 1 - PCV) 12/26/2021 Zoster Vaccines (1 of 2) 12/26/2021 COVID-19 Vaccine (1 - 2023-2 5 season) 2024 Depression Screening 09/25/2024 Cholesterol Screening (Lipid Panel) 10/04/2024 Colorectal Cancer Screening: Colonoscopy 10/04/2024 HIV Screening 10/04/2024 Hepatitis C Screening 10/04/2024 Social Influencers of Health Screening 10/04/2024 Influenza Vaccine (#1) 2025 HIB Vaccines Aged Out No longer eligi ble based on patient's age to complete this topic HPV Vaccines Aged Out No longer eligi ble based on patient's age to complete this topic Hepatitis A Vaccines Aged Out No long er eligible based on patient's age to complete this topic IPV Vaccines Aged Out No longer eligi ble based on patient's age to complete this topic MMR Vaccines Aged Out No longer eligi ble based on patient's age to complete this topic Meningococcal ACWY Vaccine Aged Out N o longer eligible based on patient's age to complete this topic Meningococcal B Vaccine Aged Out No l onger eligible based on patient's age to complete this topic RSV Immunization Patients Un samantha 20 months Aged Out No longer eligible b ased on patient's age to complete this topic Varicella Vaccines Aged Out No longer eligible based on patient's age to complete this topic Procedures Procedure Name Priority Date/Time Associated Diagnosis Comments NON-GYNECOLOGIC CYTOLOGY Routine 04/07/2025 12:00 AM EDT Malignant neoplasm of lateral wall of bladder ([facility] V24, [facility] V28) from Last 3 Months Results * Non-gynecologic cytology (04/07/2025 12:00 AM EDT) Final Diagnosis Urine, Voided, [id number]: Negative for high grade urothelial carcinoma. Results of UroVysion fluorescence in situ hybridization (FISH) testing: CEP3: Normal CEP7: Normal CEP17: Normal LSI 9p21: Normal Interpretation: Normal profile Controls stained appropriately. Note: The results are intended as a screening device and should be interpreted in association with other clinical and pathological findings. [facility] Specimen A Adequacy Satisfactory for evaluation 04/28/2025 9:06 AM EDT [facility] Clinical Information Malignant neoplasm of lateral wall of bladder C67.2 Urine Cytology/FISH (now) 04/28/2025 9:06 AM EDT [facility] Gross Description A. Urine, Voided, [id number]: Received one ThinPrep slide for cytology and one ThinPrep slide for UroVysion FISH 04/28/2025 9:06 AM [facility] Disclaimer Unless otherwise specified, all tissue is 10% NB formalin fixed and paraffin embedded. Technical pathology services provided by [facility] at [address], [place] [address] (CLIA #[id number]/Galilea Delacruz MD, Cheesemaking Laborer) 04/28/2025 9:06 AM EDT [facility] Urine Urine specimen from urethra / Unknown 04/07/2025 04/15/2025 2:02 PM EDT us Hunter James MD LAB CYTOLOGY ORDERABLES Final Result [facility] [address] [place] [address], from Last 3 Months Insurance [facility] Care Teams Incident Coordinator Relationship Specialty Start Date End Date Physician, Pcp Unknown PCP - General 01/03/25
--- OUTSIDE RECORDS SUMMARY | 2025-05-21 09:02 | XMS_ITS | Encounter Summary ---
Author Organization [facility] Address [address] [place] [address] Care Team Providers Care Sports Lawyer Name Role Phone Physician, Pcp Unknown Primary Care Provider Sharyn vailable Encounter Details Date Type Department Care Team (Late st Contact Info) Description 01/03/2025 Lab Requisition [facility] - Main Lab [address] [place] [address] Hunter James MD [address] [facility] [address] [place] [address] Malignant neoplasm of lateral wall [...] AM EDT) Final Diagnosis A. Urine, Voided, ([id number]): Negative for high grade urothelial carcinoma. Results of UroVysion fluorescence in situ hybridization (FISH) testing: CEP3: Normal CEP7: Normal CEP17: Normal LSI 9p21: Normal Interpretation: Normal profile Controls stained appropriately. Note: The results are intended as a screening device and should be interpreted in association with other clinical and pathological findings. 01/07/2025 4:35 PM EDT [facility] Clinical Information Malignant neoplasm of lateral wall of bladder C67.2 Urine Cytology/FISH (now) 01/07/2025 4:35 PM EDT [facility] Gross Description A. Urine, Voided, ([id number]): Received one ThinPrep slide for cytology and one ThinPrep slide for UroVysion FISH 01/07/2025 4:35 PM EDT [facility] Disclaimer Unless otherwise specified, all tissue is 10% NB formalin fixed and paraffin embedded. Technical pathology services provided by [facility] at [address] [place] [address] [address] [address] (CLIA #[id number]/Galilea Delacruz MD, Adjunct Professor Of English) 01/07/2025 4:35 PM EDT [facility] Tissue Urine specimen from urethra / Unknown 12/31/2024 01/03/2025 1:26 PM EDT us Hunter James MD LAB PATHOLOGY ORDERABLES Final Result [facility] [address] [place] [address], documented in this encounter Visit Diagnoses Diagnosis Malignant neoplasm of lateral wall of bladder (CMS/HCC V24, CMS/HCC V28) Malignant neoplasm of lateral wall of urinary bladder documented in this encounter Care Teams Sports Lawyer Relationship Specialty Start Date End Date Physician, Pcp Unknown PCP - General 01/03/25 documented as of this encounter
--- OUTSIDE RECORDS SUMMARY | 2025-05-21 09:02 | XMS_ITS | Encounter Summary ---
Author Organization [facility] Address [address] [place] [address] Care Team Providers Care Antisqueak Applier Name Role Phone Physician, Pcp Unknown Primary Care Provider Sharyn vailable Encounter Details Date Type Department Care Team (Late st Contact Info) Description 04/15/2025 Lab Requisition [facility] - Main Lab [address] [place] [address] Hunter James MD [address] [facility] [address] [place] [phone] Malignant neoplasm of lateral wall of bladder [...] of lateral wall of bladder (CMS/HCC V24, CMS/[facility] V28) documented in this encounter Results * Non-gynecologic cytology (04/07/2025 12:00 AM EDT) Final Diagnosis Urine, Voided, [id number]: Negative for high grade urothelial carcinoma. Results of UroVysion fluorescence in situ hybridization (FISH) testing: CEP3: Normal CEP7: Normal CEP17: Normal LSI 9p21: Normal Interpretation: Normal profile Controls stained appropriately. Note: The results are intended as a screening device and should be interpreted in association with other clinical and pathological findings. 04/28/2025 9:06 AM EDT [facility] Specimen A Adequacy Satisfactory for evaluation 04/28/2025 9:06 AM EDT [facility] Clinical Information Malignant neoplasm of lateral wall of bladder C67.2 Urine Cytology/FISH (now) 04/28/2025 9:06 AM EDT [facility] Gross Description A. Urine, Voided, [id number]: Received one ThinPrep slide for cytology and one ThinPrep slide for UroVysion FISH 04/28/2025 9:06 AM EDT [facility] Disclaimer Unless otherwise specified, all tissue is 10% NB formalin fixed and paraffin embedded. Technical pathology services provided by [facility] at [address] [place] [address] [address], [place] [address] (CLIA #[id number]/Galilea Delacruz MD, Sports Nutritionist) 04/28/2025 9:06 AM EDT [facility] Urine Urine specimen from urethra / Unknown 04/07/2025 04/15/2025 2:02 PM EDT Hunter James MD LAB CYTOLOGY ORDERABLES Final Result [facility] [address] [place] [address], documented in this encounter Visit Diagnoses Diagnosis Malignant neoplasm of lateral wall of bladder (CMS/HCC V24, CMS/HCC V28) Malignant neoplasm of lateral wall of urinary bladder documented in this encounter Care Teams Antisqueak Applier Relationship Specialty Start Date End Date Physician, Pcp Unknown PCP - General 01/03/25 documented as of this encounter
== END 2025-05-21 08:41 | disposition home or self-care (01) ==
LOC: HO.NEURO 08:40
PROVIDERS: PCP Family Medicine
DX: R20.0 Anesthesia of skin (principal); R20.2 Paresthesia of skin
CPT/HCPCS: 95886; 95910

== ENCOUNTER → 2025-05-21 08:48 | Outpatient (BNV) | payer OTHER, SELFPAY | PROVIDERS: PCP Family Medicine; Visit Provider Physical Medicine & Rehabilitation | DX: G62.89 Other specified polyneuropathies (principal) | CPT/HCPCS: 95886; 95910 ==

== ENCOUNTER 2025-06-04 14:33 | Outpatient (AMB) | payer OTHER, SELFPAY ==
--- NOTE | 2025-06-04 15:25 | A.OFFVIS_ITS ---
Vital Signs 06/04/25 15:27 Height 6 ft Weight 245 lb BMI 33.2 Intake Visit Reasons: OV: right hand EMG review Intake Note: Abena is a 54 year old right hand dominant man who presents today for an EMG review status post work related injury to his Right Small Finger, DOI: 03/14/25. Patient reports numbness and tingling that occurs daily and constant, primarily affecting his right ring and small finger. Denies finger locking. Has tried a brace given by [employer]. Allergies No Known Allergies Allergy (Verified 06/04/25 15:32) HPI HPI OV: right hand EMG review: Details: Abena is a 54 year old right hand dominant man who presents today for an EMG review status post work related injury to his Right Small Finger, DOI: 03/14/25. Patient reports numbness and tingling that occurs daily and constant, primarily affecting his right ring and small finger. Denies finger locking. Has tried a brace given by [employer]. 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 Normal sensation to all other digits in the right hand today. Normal sensation in the tips of all digits of the left hand today. No thenar or intrinsic wasting. Good APB muscle firing and good finger cross. Vascular: Capillary refill brisk. ROM: Patient can make a fist and extend all their digits. Skin: No lacerations or abrasions noted. Small nodule consistent with Dupuytren's nodule noted over the 5th metacarpal shaft General: No ecchymosis. No erythema or evidence of infection. Results Reviewed Results Reviewed: IMPRESSION: 1. This is an abnormal study. 2. There is electrodiagnostic evidence for acute right ulnar neuropathy at the wrist. 3. There is electrodiagnostic evidence for right moderate-severe median neuropathy at the wrist, consistent with Carpal Tunnel Syndrome. 4. There is no electrodiagnostic evidence for brachial plexopathy or cervical radiculopathy. CLINICAL COMMENT: 1. Right ulnar neuropathy at the wrist, particularly affecting deep palmar branch as EMG abnormality seen only on FDI muscle. 2. Findings of right Carpal Tunnel Syndrome, despite surgery 15 years ago. No past EMG available for comparison. Thank you for your kind referral. 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 Patient complained of numbness of Right 5th digit and medial side of 4th digit. Warm/well perfused with good capillary refill. X-ray done 03/14/25 was unremarkable . Patient put in metacarpal splint and advised rest/ice/elevation and NSAIDs. On 03/17/25 follow up edema of right hand improved but still visible contracture at distal hernandez crease with palpable firm tendon nodule. Referred to [facility] for evaluation/treatment. Code(s): M62.441 - Contracture of muscle, right hand Category: Medical (2) Injury of ulnar nerve at wrist and hand level of right arm, initial encounter: Code(s): S64.01XA - Injury of ulnar nerve at wrist and hand level of right arm, initial encounter Category: Medical Plan 1. Numbness and tingling of the right hand after an injury Date of injury 03/14/25 Case was discussed with Dr. Santillan, and a collaborative treatment plan was formed: Patient is educated about his injury Patient is educated about the typical recovery course At this time, urgent MRI ordered to assess potential causes for ulnar nerve impingement at the wrist, as EMG demonstrated this Patient informs me that he will be in to treat for the next 2 weeks for training, we will schedule MRI after this Patient is amenable to this plan Follow-up after MRI for MRI review with Dr. Santillan, sooner with any acute concerns Orders: Orders MR wrist RT wo con Today M62.441 - Contracture of muscle, right hand, S64.01XA - Injury of ulnar nerve at wrist and hand level of right arm, initial encounter Coding Level of Care Code Est Pt Level 3 (06122) Diagnoses Contracture of muscle of right hand M62.441 Injury of ulnar nerve at wrist and hand level of right arm, initial encounter S64.01XA
[2025-06-04 15:27] VITALS: BMI 33.2
--- OUTSIDE RECORDS SUMMARY | 2025-06-04 17:49 | XMS_ITS | Encounter Summary ---
Author Organization [facility] Address [address] [place] [address] Care Team Providers Care Senior Maintenance Technician Name Role Phone Physician, Pcp Unknown Primary Care Provider Sharyn vailable Encounter Details Date Type Department Care Team (Late st Contact Info) Description 10/04/2024 Lab Requisition [facility] - Main Lab [address] [place] [address] Hunter James MD [address] [facility] [address] [place] [phone] Malignant neoplasm of lateral wall of bladder [...] AM EST) Final Diagnosis A. Urine, Voided, ([id number]): Negative for high grade urothelial carcinoma Results of UroVysion fluorescence in situ hybridization (FISH) testing: CEP3: Normal CEP7: Normal CEP17: Normal LSI 9p21: Normal Interpretation: Normal profile Controls stained appropriately. Note: The results are intended as a screening device and should be interpreted in association with other clinical and pathological findings. 10/15/2024 11:09 AM EST [facility] Clinical Information Malignant neoplasm of lateral wall of bladder C67.2 Cytology/Urine FISH (now) 10/15/2024 11:09 AM EST [facility] Gross Description A. Urine, Voided, ([id number]): Received 1 TP (CYTO) 1 TP (FISH) 10/15/2024 11:09 AM [facility] Disclaimer Unless otherwise specified, all tissue is 10% NB formalin fixed and paraffin embedded. Technical pathology services provided by [facility] at [address] [facility] [facility] [address], [place] [address] (CLIA #[id number]/Galilea Delacruz MD, Restaurant Front Manager) 10/15/2024 11:09 AM [facility] Tissue Urine specimen from urethra / Unknown 09/27/2024 10/04/2024 2:10 PM EST us Hunter James MD LAB PATHOLOGY ORDERABLES Final Result [facility] [address] [place] [address], documented in this encounter Visit Diagnoses Diagnosis Malignant neoplasm of lateral wall of bladder (CMS/HCC V24, CMS/HCC V28) Malignant neoplasm of lateral wall of urinary bladder documented in this encounter Care Teams Senior Maintenance Technician Relationship Specialty Start Date End Date Physician, Pcp Unknown PCP - General 01/03/25 documented as of this encounter
--- OUTSIDE RECORDS SUMMARY | 2025-06-04 17:49 | XMS_ITS | Clinical Summary ---
Author Organization 299 [facility] Address [address] [place] [address] Phone Care Team Providers Care Business Consultant Name Role Phone Physician, Pcp Unknown Primary Care Provider Sharyn vailable Encounters Date Type Department Care Team Description 04/15/2025 Lab Requisition [facility] - Main Lab [address] [place] [address] Hunter James MD Malignant neoplasm [...] 12/26/2021 Zoster Vaccines (1 of 2) 12/26/2021 Depression Screening 09/25/2024 Cholesterol Screening (Lipid Panel) 10/04/2024 Colorectal Cancer Screening: Colonoscopy 10/04/2024 HIV Screening 10/04/2024 Hepatitis C Screening 10/04/2024 Social Influencers of Health Screening 10/04/2024 COVID-19 Vaccine ( - 2023-2 5 season) 2025 Influenza Vaccine (#1) 2025 HIB Vaccines Aged [...] Malignant neoplasm of lateral wall of bladder ([facility] V24, [facility] V28) from Last 3 Months Results * Non-gynecologic cytology (04/07/2025 12:00 AM EDT) Final Diagnosis Urine, Voided, [id number]: Negative for high grade urothelial carcinoma. Results [...] Satisfactory for evaluation 04/28/2025 9:06 AM EDT [facility] Clinical Information Malignant neoplasm of lateral wall of bladder C67.2 Urine Cytology/FISH (now) 04/28/2025 9:06 AM EDT [facility] Gross Description A. Urine, Voided, [id number]: Received one ThinPrep slide for cytology and one ThinPrep slide for UroVysion FISH 04/28/2025 9:06 AM [facility] Disclaimer Unless otherwise specified, all tissue is 10% NB formalin fixed and paraffin embedded. Technical pathology services provided by [facility] at [address], [place] [address] (CLIA #[id number]/Galilea Delacruz MD, It Telecom Technician) 04/28/2025 9:06 AM EDT [facility] Urine Urine specimen from urethra / Unknown 04/07/2025 04/15/2025 2:02 PM EDT us Hunter James MD LAB CYTOLOGY ORDERABLES Final Result [facility] [address] [place] [address], from Last [address] [facility] Care Teams Business Consultant Relationship Specialty Start Date End Date Physician, Pcp Unknown PCP - General 01/03/25
--- OUTSIDE RECORDS SUMMARY | 2025-06-04 17:49 | XMS_ITS | Encounter Summary ---
Author Organization [facility] Address [address] [place] [address] Care Team Providers Care Rug Cutter Helper Name Role Phone Physician, Pcp Unknown Primary Care Provider Sharyn vailable Encounter Details Date Type Department Care Team (Late st Contact Info) Description 04/15/2025 Lab Requisition [facility] - Main Lab [address] [place] [address] Hunter James MD [address] [facility] [address] [place] [phone] Malignant neoplasm of lateral wall of bladder [...] of lateral wall of bladder (CMS/HCC V24, CMS/[facility] V28) documented in this encounter Results * Non-gynecologic cytology (04/07/2025 12:00 AM EDT) Final Diagnosis Urine, Voided, [id number]: Negative for high grade urothelial carcinoma. Results of UroVysion fluorescence in situ hybridization (FISH) testing: CEP3: Normal CEP7: Normal CEP17: Normal LSI 9p21: Normal Interpretation: Normal profile Controls stained appropriately. Note: The results are intended as a screening device and should be interpreted in association with other clinical and pathological findings. 04/28/2025 9:06 AM EDT [facility] Specimen A Adequacy Satisfactory for evaluation 04/28/2025 9:06 AM EDT [facility] Clinical Information Malignant neoplasm of lateral wall of bladder C67.2 Urine Cytology/FISH (now) 04/28/2025 9:06 AM EDT [facility] Gross Description A. Urine, Voided, [id number]: Received one ThinPrep slide for cytology and one ThinPrep slide for UroVysion FISH 04/28/2025 9:06 AM EDT [facility] Disclaimer Unless otherwise specified, all tissue is 10% NB formalin fixed and paraffin embedded. Technical pathology services provided by [facility] at [address] [place] [address] [address], [place] [address] (CLIA #[id number]/Galilea Delacruz MD, Health Concierge) 04/28/2025 9:06 AM EDT [facility] Urine Urine specimen from urethra / Unknown 04/07/2025 04/15/2025 2:02 PM EDT Hunter James MD LAB CYTOLOGY ORDERABLES Final Result [facility] [address] [place] [address], documented in this encounter Visit Diagnoses Diagnosis Malignant neoplasm of lateral wall of bladder (CMS/HCC V24, CMS/HCC V28) Malignant neoplasm of lateral wall of urinary bladder documented in this encounter Care Teams Rug Cutter Helper Relationship Specialty Start Date End Date Physician, Pcp Unknown PCP - General 01/03/25 documented as of this encounter
--- OUTSIDE RECORDS SUMMARY | 2025-06-04 17:49 | XMS_ITS | Encounter Summary ---
Author Organization [facility] Address [address] [place] [address] Care Team Providers Care Forge Operator Name Role Phone Physician, Pcp Unknown Primary Care Provider Sharyn vailable Encounter Details Date Type Department Care Team (Late st Contact Info) Description 01/03/2025 Lab Requisition [facility] - Main Lab [address] [place] [address] Hunter James MD [address] [facility] [address] [place] [address] Malignant neoplasm of lateral wall [...] AM EDT) Final Diagnosis A. Urine, Voided, ([id number]): Negative for high grade urothelial carcinoma. Results of UroVysion fluorescence in situ hybridization (FISH) testing: CEP3: Normal CEP7: Normal CEP17: Normal LSI 9p21: Normal Interpretation: Normal profile Controls stained appropriately. Note: The results are intended as a screening device and should be interpreted in association with other clinical and pathological findings. 01/07/2025 4:35 PM EDT [facility] Clinical Information Malignant neoplasm of lateral wall of bladder C67.2 Urine Cytology/FISH (now) 01/07/2025 4:35 PM EDT [facility] Gross Description A. Urine, Voided, ([id number]): Received one ThinPrep slide for cytology and one ThinPrep slide for UroVysion FISH 01/07/2025 4:35 PM EDT [facility] Disclaimer Unless otherwise specified, all tissue is 10% NB formalin fixed and paraffin embedded. Technical pathology services provided by [facility] at [address] [place] [address] [address], [place] [address] (CLIA #[id number]/Galilea Delacruz MD, Butcher Meat) 01/07/2025 4:35 PM EDT [facility] Tissue Urine specimen from urethra / Unknown 12/31/2024 01/03/2025 1:26 PM EDT us Hunter James MD LAB PATHOLOGY ORDERABLES Final Result [facility] [address] [place] [address], documented in this encounter Visit Diagnoses Diagnosis Malignant neoplasm of lateral wall of bladder (CMS/HCC V24, CMS/HCC V28) Malignant neoplasm of lateral wall of urinary bladder documented in this encounter Care Teams Forge Operator Relationship Specialty Start Date End Date Physician, Pcp Unknown PCP - General 01/03/25 documented as of this encounter
== END 2025-06-04 15:55 | disposition home or self-care (01) ==
LOC: HO.HOS 14:34
PROVIDERS: PCP Family Medicine
DX: M62.441 Contracture of muscle, right hand (principal); S64.01XA Injury of ulnar nerve at wrist and hand level of right arm, initial encounter
CPT/HCPCS: 99213

== ENCOUNTER → 2025-06-04 14:33 | Outpatient (BNVA) | payer OTHER, BC, SELFPAY | PROVIDERS: PCP Family Medicine | DX: M62.441 Contracture of muscle, right hand (principal); S64.01XD Injury of ulnar nerve at wrist and hand level of right arm, subsequent encounter | CPT/HCPCS: 99212 ==

== ENCOUNTER 2025-07-10 15:56 | Outpatient (REF) | payer OTHER, SELFPAY ==
--- NOTE | ~2025-07-10 | MR_ITS ---
CLINICAL HISTORY: S64.01XA - Injury of ulnar nerve at wrist and hand level of right arm, Acute ulnar neuropathy of R wrist on EMG, looking to assess for soft tissue causes MR wrist without contrast Comparison: CR/SR - XR HAND 3 OR MORE VIEWS RIGHT - 03/14/25 15:43 EDT Findings: Trace amount of bone marrow edema of the base of the triquetrum. No fracture line or aggressive osseous lesion. The musculature is normal in signal and bulk. Mildly dilated, tortuous veins. No ulnar variance. The distal radioulnar joint is congruent. There is no carpal instability. Small carpal joint fluid. No distal radial ulnar joint effusion. There is fluid in the prestyloid recess. Cystic lesion the radial and ulnar aspects of the 5th carpometacarpal joint measuring 0.5 x 0.4 x 1.6 cm at the radial aspect 0.4 x 1.2 x 0.9 cm at the ulnar aspect (measured on series 6, image 22 /series 8, image 11 series 6 image 17/ series 8, image 11). The scapholunate and lunotriquetral ligaments are intact. There is increased signal in the triangular fibrocartilage complex, including in the region the triangular ligament. There is increased signal in the extensor carpi ulnaris tendon without tear. Otherwise normal extensor compartment. The ulnar nerve is increased in size and signal of the level the triquetrum /proximal to the pisiform. Normal carpal tunnel, median nerve, flexor retinaculum, flexor tendons and Guyon canal. Intact first carpometacarpal, scaphotrapezotrapezoidal and pisiform-triquetral joints. Impression: Trace amount of edema at the base of the triquetrum, posttraumatic. Small carpal joint fluid and fluid in the prestyloid recess, likely posttraumatic. Posttraumatic synovial cysts are favored at the 5th carpometacarpal joint of the ulnar and radial aspect measuring up to 1.6 cm. Signal abnormality in the triangular fibrocartilage complex, likely posttraumatic ligamentous injury. Extensor carpi ulnaris tendinopathy. Increase in size and signal of the ulnar nerve, likely posttraumatic. This document has been electronically signed by: Jocelyne Salazar MD on 07/10/2025 17:59:41
--- NOTE | ~2025-07-10 | XR_ITS ---
EXAMINATION: XR LUMBOSACRAL SPINE CLINICAL INFORMATION: SHRAPNEL ON LOWER BACK, PRE MRI COMPARISON: None available. TECHNIQUE: Two views of the lumbosacral spine. FINDINGS: There is maintained lumbar lordosis. There is loss of L5-S1 and L3-L4 disc heights. Rest the disc heights, vertebral heights and alignment is maintained normal. There is mild right lateral endplate spondylosis L4-5 disc level. No acute fracture, lytic or sclerotic process seen. There are no radiopaque foreign body seen. The soft tissues are normal. XR/XR lumbar spine 2-3V IMPRESSION: Mild degenerative changes lumbar spine. No radiopaque metallic foreign body or shrapnel seen on the visualized images Electronically signed by: Pérez Gimenez MD 07/10/2025 04:36 PM EDT
--- OUTSIDE RECORDS SUMMARY | 2025-07-10 19:36 | XMS_ITS | Clinical Summary ---
Author Organization [address] [facility] Address [address] [place] [address] Phone Care Team Providers Care Kennel Worker Name Role Phone Physician, Pcp Unknown Primary Care Provider Sharyn vailable Social History Tobacco Use Types Packs/Day Years Used Date Smoking Tobacco: Never Assessed Sex and Gender Information Value Date Recorded Sex Assigned at Not on file Legal Sex Male 2:06 PM EST Gender Identity Not on file Sexual Orientation Not on file Plan of Treatment Health Maintenance Due Date Last Done Comments Colorectal Cancer Screening: Colonoscopy 1971 DTaP,Tdap,and Td Vaccines (1 - Tdap) 12/26/1990 Hepatitis B Vaccines (1 of 3 - 19+ 3-dose series) 12/26/1990 Pneumococcal Vaccine: 50+ Ye ars (1 of 1 - PCV) 12/26/2021 Zoster Vaccines (1 of 2) 12/26/2021 Depression Screening 09/25/2024 Cholesterol Screening (Lipid Panel) 10/04/2024 HIV Screening 10/04/2024 Hepatitis C Screening 10/04/2024 Social Influencers of Health Screening 10/04/2024 COVID-19 Vaccine ( - 2023-2 5 season) 2025 Influenza Vaccine (#1) 2025 RSV Immunization Adult Patie nts (1 - 1-dose 75+ series) 12/26/2046 HIB Vaccines Aged Out No longer eligi [...] on patient's age to complete this topic Insurance [facility] Care Teams Kennel Worker Relationship Specialty Start Date End Date Physician, Pcp Unknown PCP - General 01/03/25
--- OUTSIDE RECORDS SUMMARY | 2025-07-10 19:36 | XMS_ITS | Encounter Summary ---
Author Organization [facility] Address [address] [place] [address] Care Team Providers Care Apparatus Engineering Technologist Name Role Phone Physician, Pcp Unknown Primary Care Provider Sharyn vailable Encounter Details Date Type Department Care Team (Late st Contact Info) Description 01/03/2025 Lab Requisition [facility] - Main Lab [address] [place] [address] Hunter James MD [address] [facility] [address] [place] [address] Malignant neoplasm of lateral wall [...] AM EDT) Final Diagnosis A. Urine, Voided, ([id number]): Negative for high grade urothelial carcinoma. Results [...] HOSPITAL LAB Gross Description A. Urine, Voided, ([id number]): Received one ThinPrep slide for cytology and one ThinPrep slide for UroVysion FISH 01/07/2025 4:35 PM EDT [facility] Disclaimer Unless otherwise specified, all tissue is 10% NB formalin fixed and paraffin embedded. Technical pathology services provided by [facility] at [address] [place] [address] [address] [address] (CLIA #[id number]/Galilea Delacruz MD, Eyelet Machine Operator) 01/07/2025 4:35 PM EDT [facility] Tissue Urine specimen from urethra / Unknown 12/31/2024 01/03/2025 1:26 PM EDT us Hunter James MD LAB PATHOLOGY ORDERABLES Final Result [facility] [address] [place] [address], documented in this encounter Visit Diagnoses Diagnosis Malignant neoplasm of lateral wall of bladder (CMS/HCC V24, CMS/HCC V28) Malignant neoplasm of lateral wall of urinary bladder documented in this encounter Care Teams Apparatus Engineering Technologist Relationship Specialty Start Date End Date Physician, Pcp Unknown PCP - General 01/03/25 documented as of this encounter
--- OUTSIDE RECORDS SUMMARY | 2025-07-10 19:36 | XMS_ITS | Encounter Summary ---
Author Organization [facility] Address [address] [place] [address] Care Team Providers Care Outbound Supervisor Name Role Phone Physician, Pcp Unknown Primary Care Provider Sharyn vailable Encounter Details Date Type Department Care Team (Late st Contact Info) Description 04/15/[address] [facility] - Main Lab [address] [place] [address] Hunter James MD [address] [facility] [address] [place] [address] Malignant neoplasm of lateral wall [...] of lateral wall of bladder (CMS/HCC V24, CMS/[facility] V28) documented in this encounter Results * Non-gynecologic cytology (04/07/2025 12:00 AM EDT) Final Diagnosis Urine, Voided, [id number]: Negative for high grade urothelial carcinoma. Results of UroVysion fluorescence in situ hybridization (FISH) testing: CEP3: Normal CEP7: Normal CEP17: Normal LSI 9p21: Normal Interpretation: Normal profile Controls stained appropriately. Note: The results are intended as a screening device and should be interpreted in association with other clinical and pathological findings. 04/28/2025 9:06 AM EDT [facility] Specimen A Adequacy Satisfactory for evaluation 04/28/2025 9:06 AM EDT [facility] Clinical Information Malignant neoplasm of lateral wall of bladder C67.2 Urine Cytology/FISH (now) 04/28/2025 9:06 AM EDT [facility] Gross Description A. Urine, Voided, [id number]: Received one ThinPrep slide for cytology and one ThinPrep slide for UroVysion FISH 04/28/2025 9:06 AM EDT [facility] Disclaimer Unless otherwise specified, all tissue is 10% NB formalin fixed and paraffin embedded. Technical pathology services provided by [facility] at [address] [place] [address] [address] [address] (CLIA #[id number]/Galilea Delacruz MD, Micro Photographer) 04/28/2025 9:06 AM EDT [facility] Urine Urine specimen from urethra / Unknown 04/07/2025 04/15/2025 2:02 PM EDT Hunter James MD LAB CYTOLOGY ORDERABLES Final Result [facility] [address] [place] [address], documented in this encounter Visit Diagnoses Diagnosis Malignant neoplasm of lateral wall of bladder (CMS/HCC V24, CMS/HCC V28) Malignant neoplasm of lateral wall of urinary bladder documented in this encounter Care Teams Outbound Supervisor Relationship Specialty Start Date End Date Physician, Pcp Unknown PCP - General 01/03/25 documented as of this encounter
--- OUTSIDE RECORDS SUMMARY | 2025-07-10 19:36 | XMS_ITS | Encounter Summary ---
Author Organization [facility] Address [address] [place] [address] Care Team Providers Care Bat Person Name Role Phone Physician, Pcp Unknown Primary Care Provider Sharyn vailable Encounter Details Date Type Department Care Team (Late st Contact Info) Description 10/04/2024 Lab Requisition [facility] - Main Lab [address] [place] [address] Hunter James MD [address] [facility] [address] [place] [phone] Malignant neoplasm of lateral wall of bladder [...] AM EST) Final Diagnosis A. Urine, Voided, ([id number]): Negative for high grade urothelial carcinoma Results of UroVysion fluorescence in situ hybridization (FISH) testing: CEP3: Normal CEP7: Normal CEP17: Normal LSI 9p21: Normal Interpretation: Normal profile Controls stained appropriately. Note: The results are intended as a screening device and should be interpreted in association with other clinical and pathological findings. 10/15/2024 11:09 AM EST [facility] Clinical Information Malignant neoplasm of lateral wall of bladder C67.2 Cytology/Urine FISH (now) 10/15/2024 11:09 AM EST [facility] Gross Description A. Urine, Voided, ([id number]): Received 1 TP (CYTO) 1 TP (FISH) 10/15/2024 11:[address] [facility] Disclaimer Unless otherwise specified, all tissue is 10% NB formalin fixed and paraffin embedded. Technical pathology services provided by [facility] at [address], [place] [address] (CLIA #[id number]/Galilea Delacruz MD, Embedded Linux Developer) 10/15/2024 11:[address] [facility] Tissue Urine specimen from urethra / Unknown 09/27/2024 10/04/2024 2:10 PM EST us Hunter James MD LAB PATHOLOGY ORDERABLES Final Result [facility] [address] [place] [address], documented in this encounter Visit Diagnoses Diagnosis Malignant neoplasm of lateral wall of bladder (CMS/HCC V24, CMS/HCC V28) Malignant neoplasm of lateral wall of urinary bladder documented in this encounter Care Teams Bat Person Relationship Specialty Start Date End Date Physician, Pcp Unknown PCP - General 01/03/25 documented as of this encounter
== END 2025-07-10 15:57 | disposition home or self-care (01) ==
LOC: HO.MRI 15:56
PROVIDERS: Absent Provider Radiology Diagnostic Radiology; PCP Family Medicine
DX: S64.01XA Injury of ulnar nerve at wrist and hand level of right arm, initial encounter (principal); M62.441 Contracture of muscle, right hand; Z01.818 Encounter for other preprocedural examination
CPT/HCPCS: 72100; 73221

== ENCOUNTER → 2025-07-10 16:24 | Outpatient (BNV) | payer OTHER, SELFPAY | PROVIDERS: Absent Provider Radiology Diagnostic Radiology; PCP Family Medicine; Visit Provider Radiology Diagnostic Radiology | DX: S64.01XA Injury of ulnar nerve at wrist and hand level of right arm, initial encounter (principal); M67.833 Other specified disorders of tendon, right wrist; M71.331 Other bursal cyst, right wrist; M51.360 Other intervertebral disc degeneration, lumbar region with discogenic back pain only | CPT/HCPCS: 72100; 73221 ==

== ENCOUNTER 2025-07-22 09:47 | Outpatient (AMB) | payer OTHER, SELFPAY ==
--- NOTE | 2025-07-22 10:15 | A.OFFVIS_ITS ---
Vital Signs 07/22/25 10:16 Height 6 ft Weight 245 lb BMI 33.2 Intake Visit Reasons: OV-MRI review of the wrist Intake Note: Abena 54 yr old - hand dominant male presents today for his MRI of his right wrist. States no changes in medical history. States his pain is the same, it has not improved. Allergies No Known Allergies Allergy (Verified 07/22/25 10:16) HPI HPI OV-MRI review of the wrist: Details: Abena is a 54 year old right hand dominant man who presents for an MRI review of his right wrist. His chief complaint is of numbness in his right ulnar nerve distribution & ulnar aspect of his hand. He says ths is constant and he has had no sensation in his small & half of his ring finger since his injury back in February 2025. He says this has been present since he injured his hand at work on 03/14/25. 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 He has been on light duty since his injury. 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 Review of Systems Const All systems reviewed & are unremarkable except as noted in HPI and below Physical Exam Vital Signs: BMI result Body Mass Index 33.2 Const General: cooperative, healthy appearing and no acute distress Orientation/consciousness: patient oriented x3 HEENT Head: Yes normocephalic and Yes atraumatic Eyes EOM: EOMs intact bilaterally Resp Effort & Inspection: normal respiratory effort and able to speak in complete sentences Cardio Jugular venous distension: no JVD Skin General skin exam: turgor normal Rashes: no rashes Neuro General: patient oriented x3 Extrem Other: Evaluation of Right Upper Extremity: The patient is alert, oriented, and in no acute distress Neuro: Decreased sensation in the ulnar nerve distribution of the right hand including the small finger and ulnar half of the ring finger. Normal sensation to all other digits in the right hand today. Normal sensation in the tips of all digits of the left hand today. No thenar or intrinsic wasting. Good APB muscle firing and good finger cross. Negative - Froment sign Vascular: Cap refill brisk ROM: He can make a fist and extend all their digits. Skin: No lacerations or abrasions. General: No Ecchymosis. No Erythema or evidence of infection. Right wrist MRI: Findings: Trace amount of bone marrow edema of the base of the triquetrum. No fracture line or aggressive osseous lesion. The musculature is normal in signal and bulk. Mildly dilated, tortuous veins. No ulnar variance. The distal radioulnar joint is congruent. There is no carpal instability. Small carpal joint fluid. No distal radial ulnar joint effusion. There is fluid in the prestyloid recess. Cystic lesion the radial and ulnar aspects of the 5th carpometacarpal joint measuring 0.5 x 0.4 x 1.6 cm at the radial aspect 0.4 x 1.2 x 0.9 cm at the ulnar aspect (measured on series 6, image 22 /series 8, image 11 series 6 image 17/ series 8, image 11). The scapholunate and lunotriquetral ligaments are intact. There is increased signal in the triangular fibrocartilage complex, including in the region the triangular ligament. There is increased signal in the extensor carpi ulnaris tendon without tear. Otherwise normal extensor compartment. The ulnar nerve is increased in size and signal of the level the triquetrum /proximal to the pisiform. Normal carpal tunnel, median nerve, flexor retinaculum, flexor tendons and Guyon canal. Intact first carpometacarpal, scaphotrapezotrapezoidal and pisiform-triquetral joints. Impression: Trace amount of edema at the base of the triquetrum, posttraumatic. Small carpal joint fluid and fluid in the prestyloid recess, likely posttraumatic. Posttraumatic synovial cysts are favored at the 5th carpometacarpal joint of the ulnar and radial aspect measuring up to 1.6 cm. Signal abnormality in the triangular fibrocartilage complex, likely posttraumatic ligamentous injury. Extensor carpi ulnaris tendinopathy. Increase in size and signal of the ulnar nerve, likely posttraumatic. This document has been electronically signed by: Jocelyne Salazar MD on 07/10/2025 Nerve Conduction Study: Right-side only IMPRESSION: 1. This is an abnormal study. 2. There is electrodiagnostic evidence for acute right ulnar neuropathy at the wrist. 3. There is electrodiagnostic evidence for right moderate-severe median neuropathy at the wrist, consistent with Carpal Tunnel Syndrome. 4. There is no electrodiagnostic evidence for brachial plexopathy or cervical radiculopathy. CLINICAL COMMENT: 1. Right ulnar neuropathy at the wrist, particularly affecting deep palmar branch as EMG abnormality seen only on FDI muscle. 2. Findings of right Carpal Tunnel Syndrome, despite surgery 15 years ago. No past EMG available for comparison. Thank you for your kind referral. Alpa Cooper MD, LUISA 05/21/25 Psych Appearance: grossly normal Affect: normal affect Attitude: cooperative Assessment & Plan Assessment & Plan (1) Neuropathy of right ulnar nerve at wrist: Code(s): G56.21 - Lesion of ulnar nerve, right upper limb Category: Medical (2) Carpal tunnel syndrome of right wrist: Code(s): G56.01 - Carpal tunnel syndrome, right upper limb Category: Medical Plan Assessment & Plan: 1. Right Ulnar hand numbness S/P work injury, DOI: 03/14/25 With dense numbness I educated him about this condition I discussed operative and non-operative treatment options The patient would like to proceed with surgery The risks and benefits of operative treatment were discussed with the patient and the patient wishes to proceed with surgery. These risks include, but are not limited to risk of damage to blood vessels, nerves, tendons, infection, recurrence, incomplete relief of preoperative symptoms, persistent pain, possible need for further surgery and the risks associated with regional blocks and anesthesia. The plan is to take the patient to the operating room sometime in the next few weeks for the following procedures: 1. Right ulnar nerve release at the wrist, under general All of the preoperative paperwork including the consent was reviewed today. All the patient's questions were answered. The patient understands that they will be contacted by our vascular surgery physician soon to schedule this procedure He denies Diabetes, blood thinners, asthma, heart, lung, kidney issues He was given a note for work to remain on light duty, with a 5lb weight limit, for the next 8 weeks. 2. Right carpal tunnel syndrome, moderate-severe, recurrent Hx of carpal tunnel release done in 2009 No complaints, at present he denies numbness in the median nerve distribution & not otherwise discussed today Scribed for Meera Santillan MD by Sang Crespo, medical assistant per diem, on 07/22/25 at 10:45 AM, EST. Coding Level of Care Code Est Pt Level 4 (50812) Diagnoses Neuropathy of right ulnar nerve at wrist G56.21 Carpal tunnel syndrome of right wrist G56.01
[2025-07-22 10:16] VITALS: BMI 33.2
--- OUTSIDE RECORDS SUMMARY | 2025-07-22 11:25 | XMS_ITS | Encounter Summary ---
Author Organization [facility] Address [address] [place] [address] Care Team Providers Care Veterinary Medical Officer Name Role Phone Physician, Pcp Unknown Primary Care Provider Sharyn vailable Encounter Details Date Type Department Care Team (Late st Contact Info) Description 10/04/2024 Lab Requisition [facility] - Main Lab [address] [place] [address] Hunter James MD [address] [facility] [address] [place] [phone] Malignant neoplasm of lateral wall of bladder [...] AM EST) Final Diagnosis A. Urine, Voided, ([id number]): Negative for high grade urothelial carcinoma Results of UroVysion fluorescence in situ hybridization (FISH) testing: CEP3: Normal CEP7: Normal CEP17: Normal LSI 9p21: Normal Interpretation: Normal profile Controls stained appropriately. Note: The results are intended as a screening device and should be interpreted in association with other clinical and pathological findings. 10/15/2024 11:09 AM EST [facility] Clinical Information Malignant neoplasm of lateral wall of bladder C67.2 Cytology/Urine FISH (now) 10/15/2024 11:09 AM EST [facility] Gross Description A. Urine, Voided, ([id number]): Received 1 TP (CYTO) 1 TP (FISH) 10/15/2024 11:[address] [facility] Disclaimer Unless otherwise specified, all tissue is 10% NB formalin fixed and paraffin embedded. Technical pathology services provided by [facility] Urology at [address], [place] [address] (CLIA #[id number]/Galilea Delacruz MD, Pole Frame Construction Worker) 10/15/2024 11:[address] [facility] Tissue Urine specimen from urethra / Unknown 09/27/2024 10/04/2024 2:10 PM EST us Hunter James MD LAB PATHOLOGY ORDERABLES Final Result [facility] [address] [place] [address], documented in this encounter Visit Diagnoses Diagnosis Malignant neoplasm of lateral wall of bladder (CMS/HCC V24, CMS/HCC V28) Malignant neoplasm of lateral wall of urinary bladder documented in this encounter Care Teams Veterinary Medical Officer Relationship Specialty Start Date End Date Physician, Pcp Unknown PCP - General 01/03/25 documented as of this encounter
--- OUTSIDE RECORDS SUMMARY | 2025-07-22 11:25 | XMS_ITS | Encounter Summary ---
Author Organization [facility] Address [address] [place] [address] Care Team Providers Care Manager Apple Name Role Phone Physician, Pcp Unknown Primary Care Provider Sharyn vailable Encounter Details Date Type Department Care Team (Late st Contact Info) Description 04/15/2025 Lab Requisition [facility] - Main Lab [address] [place] [address] Hunter James MD [address] [facility] 120 [place] [phone] Malignant neoplasm of lateral wall of bladder [...] of lateral wall of bladder (CMS/HCC V24, CMS/[facility] V28) documented in this encounter Results * Non-gynecologic cytology (04/07/2025 12:00 AM EDT) Final Diagnosis Urine, Voided, [id number]: Negative for high grade urothelial carcinoma. Results [...] CENTER LAB Gross Description A. Urine, Voided, [id number]: Received one ThinPrep slide for cytology and one ThinPrep slide for UroVysion FISH 04/28/2025 9:06 AM EDT [facility] Disclaimer Unless otherwise specified, all tissue is 10% NB formalin fixed and paraffin embedded. Technical pathology services provided by [facility] Urology at [address] [place] [address] [address] [address] (CLIA #[id number]/Galilea Delacruz MD, Pin Attacher) 04/28/2025 9:06 AM EDT [facility] Urine Urine specimen from urethra / Unknown 04/07/2025 04/15/2025 2:02 PM EDT Hunter James MD LAB CYTOLOGY ORDERABLES Final Result [facility] [address] [place] [address], documented in this encounter Visit Diagnoses Diagnosis Malignant neoplasm of lateral wall of bladder (CMS/HCC V24, CMS/HCC V28) Malignant neoplasm of lateral wall of urinary bladder documented in this encounter Care Teams Manager Apple Relationship Specialty Start Date End Date Physician, Pcp Unknown PCP - General 01/03/25 documented as of this encounter
--- OUTSIDE RECORDS SUMMARY | 2025-07-22 11:25 | XMS_ITS | Encounter Summary ---
Author Organization [facility] Address [address] [place] [address] Care Team Providers Care Body Shop Technician Name Role Phone Physician, Pcp Unknown Primary Care Provider Sharyn vailable Encounter Details Date Type Department Care Team (Late st Contact Info) Description 01/03/2025 Lab Requisition [facility] - Main Lab [address] [place] [address] Hunter James MD [address] [facility] 120 [place] [address] Malignant neoplasm of lateral wall [...] AM EDT) Final Diagnosis A. Urine, Voided, ([id number]): Negative for high grade urothelial carcinoma. Results [...] CENTER LAB Gross Description A. Urine, Voided, ([id number]): Received one ThinPrep slide for cytology and one ThinPrep slide for UroVysion FISH 01/07/2025 4:35 PM EDT [facility] Disclaimer Unless otherwise specified, all tissue is 10% NB formalin fixed and paraffin embedded. Technical pathology services provided by [facility] Urology at [address] [place] [address] [address], [place] [address] (CLIA #[id number]/Galilea Delacruz MD, Bag Machine Tender) 01/07/2025 4:35 PM EDT [facility] Tissue Urine specimen from urethra / Unknown 12/31/2024 01/03/2025 1:26 PM EDT us Hunter James MD LAB PATHOLOGY ORDERABLES Final Result [facility] [address] [place] [address], documented in this encounter Visit Diagnoses Diagnosis Malignant neoplasm of lateral wall of bladder (CMS/HCC V24, CMS/HCC V28) Malignant neoplasm of lateral wall of urinary bladder documented in this encounter Care Teams Body Shop Technician Relationship Specialty Start Date End Date Physician, Pcp Unknown PCP - General 01/03/25 documented as of this encounter
--- OUTSIDE RECORDS SUMMARY | 2025-07-22 11:25 | XMS_ITS | Clinical Summary ---
Author Organization [address] [facility] Address [address] [place] [address] Phone Care Team Providers Care President Name Role Phone Physician, Pcp Unknown Primary [...] patient's age to complete this topic Insurance [facility] Care Teams President Relationship Specialty Start Date End Date Physician, Pcp Unknown PCP - General 01/03/25
== END 2025-07-22 10:55 | disposition home or self-care (01) ==
LOC: HO.HOS 09:48
PROVIDERS: PCP Family Medicine; Visit Provider Orthopaedic Surgery
DX: G56.21 Lesion of ulnar nerve, right upper limb (principal); G56.01 Carpal tunnel syndrome, right upper limb
CPT/HCPCS: 99214

== ENCOUNTER → 2025-07-22 09:47 | Outpatient (BNVA) | payer OTHER, SELFPAY | PROVIDERS: PCP Family Medicine; Visit Provider Orthopaedic Surgery | DX: G56.21 Lesion of ulnar nerve, right upper limb (principal); G56.01 Carpal tunnel syndrome, right upper limb | CPT/HCPCS: 99212 ==

== ENCOUNTER 2025-08-19 13:40 | Outpatient (AMB) | payer OTHER, SELFPAY ==
--- NOTE | 2025-08-19 13:54 | MHC.OFFVIS ---
Vital Signs 08/19/25 13:55 Height 6 ft Weight 245 lb BMI 33.2 Intake Visit Reasons: Preop RT ulnar nerve release 08/25/25 AR Intake Note: Abena is a 54 year old right hand dominant male who presents today pre-operatively for discussion of their Right Ulnar Nerve Release scheduled for 08/25/[address] Santillan. Consents signed in office today. IMPRESSION 05/21/25: 1. This is an abnormal study. 2. There is electrodiagnostic evidence for acute right ulnar neuropathy at the wrist. 3. There is electrodiagnostic evidence for right moderate-severe median neuropathy at the wrist, consistent with Carpal Tunnel Syndrome. 4. There is no electrodiagnostic evidence for brachial plexopathy or cervical radiculopathy. CLINICAL COMMENT: 1. Right ulnar neuropathy at the wrist, particularly affecting deep palmar branch as EMG abnormality seen only on FDI muscle. 2. Findings of right Carpal Tunnel Syndrome, despite surgery 15 years ago. No past EMG available for comparison. Allergies No Known Allergies Allergy (Verified 08/19/25 13:55) HPI HPI Preop RT ulnar nerve release 08/25/25 AR: Details: Abena is a 54 year old right hand dominant male who presents today pre-operatively for discussion of their Right Ulnar Nerve Release scheduled for 08/25/[address] Santillan. Consents signed in office today. No new medical diagnoses or medications since previous evaluation. Symptoms have remained consistent. IMPRESSION 05/21/25: 1. This is an abnormal study. 2. There is electrodiagnostic evidence for acute right ulnar neuropathy at the wrist. 3. There is electrodiagnostic evidence for right moderate-severe median neuropathy at the wrist, consistent with Carpal Tunnel Syndrome. 4. There is no electrodiagnostic evidence for brachial plexopathy or cervical radiculopathy. CLINICAL COMMENT: 1. Right ulnar neuropathy at the wrist, particularly affecting deep palmar branch as EMG abnormality seen only on FDI muscle. 2. Findings of right Carpal Tunnel Syndrome, despite surgery 15 years ago. No past EMG available for comparison. 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 Physical Exam Vital Signs: BMI result Body Mass Index 33.2 Const General: cooperative, healthy appearing and no acute distress Orientation/consciousness: patient oriented x3 HEENT Head: Yes normocephalic and Yes atraumatic Eyes EOM: EOMs intact bilaterally Resp Effort & Inspection: normal respiratory effort and able to speak in complete sentences Cardio Jugular venous distension: no JVD Skin General skin exam: turgor normal Rashes: no rashes Neuro General: patient oriented x3 Extrem Other: Evaluation of Right Upper Extremity: The patient is alert, oriented, and in no acute distress Neuro: Decreased sensation in the ulnar nerve distribution of the right hand including the small finger and ulnar half of the ring finger. Normal sensation to all other digits in the right hand today. Normal sensation in the tips of all digits of the left hand today. No thenar or intrinsic wasting. Good APB muscle firing and good finger cross. Negative - Froment sign Vascular: Cap refill brisk ROM: He can make a fist and extend all their digits. Skin: No lacerations or abrasions. General: No Ecchymosis. No Erythema or evidence of infection. Right wrist MRI: Findings: Trace amount of bone marrow edema of the base of the triquetrum. No fracture line or aggressive osseous lesion. The musculature is normal in signal and bulk. Mildly dilated, tortuous veins. No ulnar variance. The distal radioulnar joint is congruent. There is no carpal instability. Small carpal joint fluid. No distal radial ulnar joint effusion. There is fluid in the prestyloid recess. Cystic lesion the radial and ulnar aspects of the 5th carpometacarpal joint measuring 0.5 x 0.4 x 1.6 cm at the radial aspect 0.4 x 1.2 x 0.9 cm at the ulnar aspect (measured on series 6, image 22 /series 8, image 11 series 6 image 17/ series 8, image 11). The scapholunate and lunotriquetral ligaments are intact. There is increased signal in the triangular fibrocartilage complex, including in the region the triangular ligament. There is increased signal in the extensor carpi ulnaris tendon without tear. Otherwise normal extensor compartment. The ulnar nerve is increased in size and signal of the level the triquetrum /proximal to the pisiform. Normal carpal tunnel, median nerve, flexor retinaculum, flexor tendons and Guyon canal. Intact first carpometacarpal, scaphotrapezotrapezoidal and pisiform-triquetral joints. Impression: Trace amount of edema at the base of the triquetrum, posttraumatic. Small carpal joint fluid and fluid in the prestyloid recess, likely posttraumatic. Posttraumatic synovial cysts are favored at the 5th carpometacarpal joint of the ulnar and radial aspect measuring up to 1.6 cm. Signal abnormality in the triangular fibrocartilage complex, likely posttraumatic ligamentous injury. Extensor carpi ulnaris tendinopathy. Increase in size and signal of the ulnar nerve, likely posttraumatic. This document has been electronically signed by: Jocelyne Salazar MD on 07/10/2025 Nerve Conduction Study: Right-side only IMPRESSION: 1. This is an abnormal study. 2. There is electrodiagnostic evidence for acute right ulnar neuropathy at the wrist. 3. There is electrodiagnostic evidence for right moderate-severe median neuropathy at the wrist, consistent with Carpal Tunnel Syndrome. 4. There is no electrodiagnostic evidence for brachial plexopathy or cervical radiculopathy. CLINICAL COMMENT: 1. Right ulnar neuropathy at the wrist, particularly affecting deep palmar branch as EMG abnormality seen only on FDI muscle. 2. Findings of right Carpal Tunnel Syndrome, despite surgery 15 years ago. No past EMG available for comparison. Thank you for your kind referral. Alpa Cooper MD, LUISA 05/21/25 Psych Appearance: grossly normal Affect: normal affect Attitude: cooperative Assessment & Plan Assessment & Plan (1) Neuropathy of right ulnar nerve at wrist: Code(s): G56.21 - Lesion of ulnar nerve, right upper limb Category: Medical (2) Carpal tunnel syndrome of right wrist: Code(s): G56.01 - Carpal tunnel syndrome, right upper limb Category: Medical Plan Assessment & Plan: 1. Right Ulnar hand numbness S/P work injury, DOI: 03/14/25 With dense numbness I educated him about this condition I discussed operative and non-operative treatment options The patient would like to proceed with surgery The risks and benefits of operative treatment were discussed with the patient and the patient wishes to proceed with surgery. These risks include, but are not limited to risk of damage to blood vessels, nerves, tendons, infection, recurrence, incomplete relief of preoperative symptoms, persistent pain, possible need for further surgery and the risks associated with regional blocks and anesthesia. The plan is to take the patient to the operating room sometime in the next few weeks for the following procedures: 1. Right ulnar nerve release at the wrist, under general All of the preoperative paperwork including the consent was reviewed today. All the patient's questions were answered. The patient understands that they will be contacted by our manufacturing scheduler soon to schedule this procedure He denies Diabetes, blood thinners, asthma, heart, lung, kidney issues He was given a note for work to remain on light duty, with a 5lb weight limit, for the next 8 weeks. 2. Right carpal tunnel syndrome, moderate-severe, recurrent Hx of carpal tunnel release done in 2009 No complaints, at present he denies numbness in the median nerve distribution & not otherwise discussed today Coding Level of Care Code Est Pt Level 4 (34935) Diagnoses Neuropathy of right ulnar nerve at wrist G56.21 Carpal tunnel syndrome of right wrist G56.01
[2025-08-19 13:55] VITALS: BMI 33.2
--- OUTSIDE RECORDS SUMMARY | 2025-08-19 17:31 | XMS_ITS | Clinical Summary ---
Author Organization 299 [facility] Address [address] [place] [address] Phone Care Team Providers Care Washer Meat Name Role Phone Physician, Pcp Unknown Primary [...] Influencers of Health Screening 10/04/2024 COVID-19 Vaccine (1 - 2024-2 6 season) 2025 Influenza Vaccine (#1) 2025 RSV [...] patient's age to complete this topic Insurance [facility] Care Teams Washer Meat Relationship Specialty Start Date End Date Physician, Pcp Unknown PCP - General 01/03/25
--- OUTSIDE RECORDS SUMMARY | 2025-08-19 17:31 | XMS_ITS | Encounter Summary ---
Author Organization [facility] Address [address] [place] [address] Care Team Providers Care Scout Name Role Phone Physician, Pcp Unknown Primary Care Provider Sharyn vailable Encounter Details Date Type Department Care Team (Late st Contact Info) Description 04/15/[address] [facility] - Main Lab [address] [place] [address] Hunter James MD [address] [facility] [address] [place] [phone] Malignant neoplasm of lateral wall of bladder [...] of lateral wall of bladder (CMS/HCC V24, CMS/[facility] V28) documented in this encounter Results * Non-gynecologic cytology (04/07/2025 12:00 AM EDT) Final Diagnosis Urine, Voided, [id number]: Negative for high grade urothelial carcinoma. Results of UroVysion fluorescence in situ hybridization (FISH) testing: CEP3: Normal CEP7: Normal CEP17: Normal LSI 9p21: Normal Interpretation: Normal profile Controls stained appropriately. Note: The results are intended as a screening device and should be interpreted in association with other clinical and pathological findings. 04/28/2025 9:06 AM EDT [facility] Specimen A Adequacy Satisfactory for evaluation 04/28/2025 9:06 AM EDT [facility] Clinical Information Malignant neoplasm of lateral wall of bladder C67.2 Urine Cytology/FISH (now) 04/28/2025 9:06 AM EDT [facility] Gross Description A. Urine, Voided, [id number]: Received one ThinPrep slide for cytology and one ThinPrep slide for UroVysion FISH 04/28/2025 9:06 AM EDT [facility] Disclaimer Unless otherwise specified, all tissue is 10% NB formalin fixed and paraffin embedded. Technical pathology services provided by [facility] at [address] [place] [address] [address], [place] [address] (CLIA #[id number]/Galilea Delacruz MD, Rubber Extrusion Machine Operator) 04/28/2025 9:06 AM EDT [facility] Urine Urine specimen from urethra / Unknown 04/07/2025 04/15/2025 2:02 PM EDT Hunter James MD LAB CYTOLOGY ORDERABLES Final Result [facility] [address] [place] [address], documented in this encounter Visit Diagnoses Diagnosis Malignant neoplasm of lateral wall of bladder (CMS/HCC V24, CMS/HCC V28) Malignant neoplasm of lateral wall of urinary bladder documented in this encounter Care Teams Scout Relationship Specialty Start Date End Date Physician, Pcp Unknown PCP - General 01/03/25 documented as of this encounter
--- OUTSIDE RECORDS SUMMARY | 2025-08-19 17:31 | XMS_ITS | Encounter Summary ---
Author Organization [facility] Address [address] [place] [address] Care Team Providers Care Audit Partner Name Role Phone Physician, Pcp Unknown Primary Care Provider Sharyn vailable Encounter Details Date Type Department Care Team (Late st Contact Info) Description 01/03/2025 Lab Requisition [facility] - Main Lab [address] [place] [address] Hunter James MD [address] [facility] [address] [place] [address] Malignant neoplasm of lateral wall [...] AM EDT) Final Diagnosis A. Urine, Voided, ([id number]): Negative for high grade urothelial carcinoma. Results of UroVysion fluorescence in situ hybridization (FISH) testing: CEP3: Normal CEP7: Normal CEP17: Normal LSI 9p21: Normal Interpretation: Normal profile Controls stained appropriately. Note: The results are intended as a screening device and should be interpreted in association with other clinical and pathological findings. 01/07/2025 4:35 PM EDT [facility] Clinical Information Malignant neoplasm of lateral wall of bladder C67.2 Urine Cytology/FISH (now) 01/07/2025 4:35 PM EDT [facility] Gross Description A. Urine, Voided, ([id number]): Received one ThinPrep slide for cytology and one ThinPrep slide for UroVysion FISH 01/07/2025 4:35 PM EDT [facility] Disclaimer Unless otherwise specified, all tissue is 10% NB formalin fixed and paraffin embedded. Technical pathology services provided by [facility] at [address] [place] [address] [address] [address] (CLIA #[id number]/Galilea Delacruz MD, Bread Panner) 01/07/2025 4:35 PM EDT [facility] Tissue Urine specimen from urethra / Unknown 12/31/2024 01/03/2025 1:26 PM EDT us Hunter James MD LAB PATHOLOGY ORDERABLES Final Result [facility] [address] [place] [address], documented in this encounter Visit Diagnoses Diagnosis Malignant neoplasm of lateral wall of bladder (CMS/HCC V24, CMS/HCC V28) Malignant neoplasm of lateral wall of urinary bladder documented in this encounter Care Teams Audit Partner Relationship Specialty Start Date End Date Physician, Pcp Unknown PCP - General 01/03/25 documented as of this encounter
--- OUTSIDE RECORDS SUMMARY | 2025-08-19 17:32 | XMS_ITS | Encounter Summary ---
Author Organization [facility] Address [address] [place] [address] Care Team Providers Care Horse Racer Name Role Phone Physician, Pcp Unknown Primary Care Provider Sharyn vailable Encounter Details Date Type Department Care Team (Late st Contact Info) Description 10/04/2024 Lab Requisition [facility] - Main Lab [address] [place] [address] Hunter James MD [address] [facility] [address] [place] [phone] Malignant neoplasm of lateral wall of bladder [...] AM EST) Final Diagnosis A. Urine, Voided, ([id number]): Negative for high grade urothelial carcinoma Results of UroVysion fluorescence in situ hybridization (FISH) testing: CEP3: Normal CEP7: Normal CEP17: Normal LSI 9p21: Normal Interpretation: Normal profile Controls stained appropriately. Note: The results are intended as a screening device and should be interpreted in association with other clinical and pathological findings. 10/15/2024 11:09 AM EST [facility] Clinical Information Malignant neoplasm of lateral wall of bladder C67.2 Cytology/Urine FISH (now) 10/15/2024 11:09 AM EST [facility] Gross Description A. Urine, Voided, ([id number]): Received 1 TP (CYTO) 1 TP (FISH) 10/15/2024 11:09 AM [facility] Disclaimer Unless otherwise specified, all tissue is 10% NB formalin fixed and paraffin embedded. Technical pathology services provided by [facility] at [address], [place] [address] (CLIA #[id number]/Galilea Delacruz MD, Teletype Adjuster) 10/15/2024 11:09 AM [facility] Tissue Urine specimen from urethra / Unknown 09/27/2024 10/04/2024 2:10 PM EST us Hunter James MD LAB PATHOLOGY ORDERABLES Final Result [facility] [address] [place] [address], documented in this encounter Visit Diagnoses Diagnosis Malignant neoplasm of lateral wall of bladder (CMS/HCC V24, CMS/HCC V28) Malignant neoplasm of lateral wall of urinary bladder documented in this encounter Care Teams Horse Racer Relationship Specialty Start Date End Date Physician, Pcp Unknown PCP - General 01/03/25 documented as of this encounter
== END 2025-08-19 14:27 | disposition home or self-care (01) ==
LOC: HO.HOS 13:41
PROVIDERS: PCP Family Medicine
DX: G56.21 Lesion of ulnar nerve, right upper limb (principal); G56.01 Carpal tunnel syndrome, right upper limb
CPT/HCPCS: 99214

== ENCOUNTER → 2025-08-19 13:40 | Outpatient (BNVA) | payer OTHER, SELFPAY | PROVIDERS: PCP Family Medicine | DX: Z01.818 Encounter for other preprocedural examination (principal); G56.21 Lesion of ulnar nerve, right upper limb; G56.01 Carpal tunnel syndrome, right upper limb | CPT/HCPCS: 99212 ==

== ENCOUNTER 2025-08-25 11:10 | Day surgery (SDC) | payer OTHER, SELFPAY ==
--- OUTSIDE RECORDS SUMMARY | 2025-07-25 07:00 | XMS_ITS | Encounter Summary ---
Author Organization [facility] Address [address] [place] [address] Care Team Providers Care Escort Blind Name Role Phone Physician, Pcp Unknown Primary Care Provider Sharyn vailable Encounter Details Date Type Department Care Team (Late st Contact Info) Description 04/15/2025 Lab Requisition [facility] - Main Lab [address] [place] [address] Hunter James MD [address] [facility] [address] [place] [address] Malignant neoplasm of lateral wall [...] of lateral wall of bladder (CMS/HCC V24, CMS/[facility] V28) documented in this encounter Results * Non-gynecologic cytology (04/07/2025 12:00 AM EDT) Final Diagnosis Urine, Voided, [id number]: Negative for high grade urothelial carcinoma. Results of UroVysion fluorescence in situ hybridization (FISH) testing: CEP3: Normal CEP7: Normal CEP17: Normal LSI 9p21: Normal Interpretation: Normal profile Controls stained appropriately. Note: The results are intended as a screening device and should be interpreted in association with other clinical and pathological findings. 04/28/2025 9:06 AM EDT [facility] Specimen A Adequacy Satisfactory for evaluation 04/28/2025 9:06 AM EDT [facility] Clinical Information Malignant neoplasm of lateral wall of bladder C67.2 Urine Cytology/FISH (now) 04/28/2025 9:06 AM EDT [facility] Gross Description A. Urine, Voided, [id number]: Received one ThinPrep slide for cytology and one ThinPrep slide for UroVysion FISH 04/28/2025 9:06 AM EDT [facility] Disclaimer Unless otherwise specified, all tissue is 10% NB formalin fixed and paraffin embedded. Technical pathology services provided by [facility] Urology at [address] [place] [address] [address] [address] (CLIA #[id number]/Galilea Delacruz MD, Rheumatology Specialist) 04/28/2025 9:06 AM EDT [facility] Urine Urine specimen from urethra / Unknown 04/07/2025 04/15/2025 2:02 PM EDT Hunter James MD LAB CYTOLOGY ORDERABLES Final Result [facility] [address] [place] [address], documented in this encounter Visit Diagnoses Diagnosis Malignant neoplasm of lateral wall of bladder (CMS/HCC V24, CMS/HCC V28) Malignant neoplasm of lateral wall of urinary bladder documented in this encounter Care Teams Escort Blind Relationship Specialty Start Date End Date Physician, Pcp Unknown PCP - General 01/03/25 documented as of this encounter
--- OUTSIDE RECORDS SUMMARY | 2025-07-25 07:00 | XMS_ITS | Clinical Summary ---
Author Organization 299 [facility] Address [address] [place] [address] Phone Care Team Providers Care Sole Leveling Machine Operator Name Role Phone Physician, Pcp Unknown [...] patient's age to complete this topic Insurance [facility] Care Teams Sole Leveling Machine Operator Relationship Specialty Start Date End Date Physician, Pcp Unknown PCP - General 01/03/25
--- OUTSIDE RECORDS SUMMARY | 2025-07-25 07:00 | XMS_ITS | Encounter Summary ---
Author Organization [facility] Address [address] [place] [address] Care Team Providers Care Chain Maker Machine Name Role Phone Physician, Pcp Unknown Primary Care Provider Sharyn vailable Encounter Details Date Type Department Care Team (Late st Contact Info) Description 01/03/2025 Lab Requisition [facility] - Main Lab [address] [place] [address] Hunter James MD [address] [facility] [address] [place] [address] Malignant neoplasm of lateral wall [...] AM EDT) Final Diagnosis A. Urine, Voided, ([id number]): Negative for high grade urothelial carcinoma. Results of UroVysion fluorescence in situ hybridization (FISH) testing: CEP3: Normal CEP7: Normal CEP17: Normal LSI 9p21: Normal Interpretation: Normal profile Controls stained appropriately. Note: The results are intended as a screening device and should be interpreted in association with other clinical and pathological findings. 01/07/2025 4:35 PM EDT [facility] Clinical Information Malignant neoplasm of lateral wall of bladder C67.2 Urine Cytology/FISH (now) 01/07/2025 4:35 PM EDT [facility] Gross Description A. Urine, Voided, ([id number]): Received one ThinPrep slide for cytology and one ThinPrep slide for UroVysion FISH 01/07/2025 4:35 PM EDT [facility] Disclaimer Unless otherwise specified, all tissue is 10% NB formalin fixed and paraffin embedded. Technical pathology services provided by [facility] Urology at [address] [place] [address] [address], [place] [address] (CLIA #[id number]/Galilea Delacruz MD, Custom Ski Maker) 01/07/2025 4:35 PM EDT [facility] Tissue Urine specimen from urethra / Unknown 12/31/2024 01/03/2025 1:26 PM EDT us Hunter James MD LAB PATHOLOGY ORDERABLES Final Result [facility] [address] [place] [address], documented in this encounter Visit Diagnoses Diagnosis Malignant neoplasm of lateral wall of bladder (CMS/HCC V24, CMS/HCC V28) Malignant neoplasm of lateral wall of urinary bladder documented in this encounter Care Teams Chain Maker Machine Relationship Specialty Start Date End Date Physician, Pcp Unknown PCP - General 01/03/25 documented as of this encounter
--- OUTSIDE RECORDS SUMMARY | 2025-07-25 07:00 | XMS_ITS | Encounter Summary ---
Author Organization [facility] Address [address] [place] [address] Care Team Providers Care Waiter/Waitress Economy Class Name Role Phone Physician, Pcp Unknown Primary Care Provider Sharyn vailable Encounter Details Date Type Department Care Team (Late st Contact Info) Description 10/04/2024 Lab Requisition [facility] - Main Lab [address] [facility] [facility] [place] [address] Hunter James MD [address] [facility] [address] [place] [phone] Malignant neoplasm of lateral wall of bladder [...] AM EST) Final Diagnosis A. Urine, Voided, ([id number]): Negative for high grade urothelial carcinoma Results [...] HOSPITAL LAB Gross Description A. Urine, Voided, ([id number]): Received 1 TP (CYTO) 1 TP (FISH) 10/15/2024 11:09 AM [facility] Disclaimer Unless otherwise specified, all tissue is 10% NB formalin fixed and paraffin embedded. Technical pathology services provided by [facility] Urology at [address] [facility] [address], [place] [address] (CLIA #[id number]/Galilea Delacruz MD, Docking Saw Operator) 10/15/2024 11:09 AM [facility] Tissue Urine specimen from urethra / Unknown 09/27/2024 10/04/2024 2:10 PM EST us Hunter James MD LAB PATHOLOGY ORDERABLES Final Result [facility] [address] [place] [address], documented in this encounter Visit Diagnoses Diagnosis Malignant neoplasm of lateral wall of bladder (CMS/HCC V24, CMS/HCC V28) Malignant neoplasm of lateral wall of urinary bladder documented in this encounter Care Teams Waiter/Waitress Economy Class Relationship Specialty Start Date End Date Physician, Pcp Unknown PCP - General 01/03/25 documented as of this encounter
[2025-08-19 09:50] VITALS: BMI 33.2
--- NOTE | 2025-08-25 10:44 | MHC.SHP ---
Pre-Procedural Eval Section A - 24 Hr Update-Section A only Date of Service: 08/25/25 The patient is an INPATIENT: No Changes since office visit: No Cold of Flu in the past 2 weeks, No New Medical Problems, No Changes in Medication and No Patient answered all questions The patient has been examined within 24 hours of the surgical procedure. The History & Physical has been completed within 30 days and I have reviewed it.: Yes Section B - Complete if H&P > 30 days Chief Complaint: Lesion of ulnar nerve, right upper limb Allergies: Allergies Allergy/AdvReac Type Severity Reaction Status Date / Time No Known Allergies Allergy Verified 08/19/25 13:55 Plan I have reviewed the history and physical and performed a pertinent physical examination on my patient. No changes have occurred unless specified. Time Spent With Patient Time: Total time managing care of this patient today ____ minutes.
--- NOTE | 2025-08-25 10:45 | P.OP_ITS ---
Operative Note Operative Note Date of Service: 08/25/25 Narrative: Operative Note Narrative: Preop diagnosis: 1. Right ulnar nerve compression at the wrist/Guyon canal Postop diagnosis: Same Procedure: 1. Right ulnar nerve decompression at the wrist/Guyon's canal Surgeon: Meera Santillan MD Thoracic Medicine Physician: None Anesthesia: General Anesthesia Findings: Narrowing of the ulnar nerve in Guyon's canal at the level of the pisiform Implants: None Tourniquet time: 41 minutes EBL: 5.0 ml Specimen: None Drains: None Complications: None Disposition: Brought to the recovery room in stable condition Plan: [ ] Follow-up in 10-14 days for wound check, and suture removal Indications: The patient is a 54 year old man with right ulnar nerve compression at the wrist . The risks and benefits of operative treatment, including but not limited to risk of damage to blood vessels, nerves, tendons, infection, recurrence, persistent pain or numbness, incomplete resolution of preoperative symptoms, or need for further surgery were discussed with the radha brar and they wished to proceed with surgery. Procedure: Once consent was obtained patient was brought back to the operating suite and placed in the operating table in a supine position. . Perioperative antibiotics and anesthesia was administered by the anesthesia team. A tourniquet was applied to the proximal aspect of the right upper extremity and the limb was prepped and draped in a standard surgical fashion. The limb was elevated exsanguinated with Esmarch bandage and the tourniquet inflated to 250 mm of mercury for a total tourniquet time of 41 minutes. I made a longitudinal incision just radial to the hook of the hamate and the pisiform advancing proximally from the distal wrist crease in a zigzag fashion to then extend longitudinally just radial to the flexor carpi ulnaris tendon. The incision was made through the skin to the subcutaneous tissues using a 15. Blade. I then carefully dissected down to the volar forearm fascia just radial to the FCU tendon. I made a longitudinal incision through the volar forearm fascia just radial to the FCU tendon using tenotomy scissors. This then exposed to me the ulnar nerve and the ulnar artery. I then advanced distally releasing the fascia, small palmaris brevis muscle, and ligamentous tissues overlying the ulnar artery and ulnar nerve as they passed through Guyon's canal. There was a narrowing of the ulnar nerve in Guyon's canal as it passed adjacent to the pisiform. I assured that we had an adequate release distally for the sensory branch. I then came back and identified the motor branch as it dove deep, keith mock released the origin of the hypothenar muscle over top of the motor branch and its accompanying branch of the ulnar artery. I did not identify any masses compressing the ulnar nerve or ulnar artery. I was satisfied with our decompression of the structures. At this point the tourniquet was deflated and hemostasis obtained with a brief period of local pressure and bipolar electrocautery. The wound was copiously irrigated with normal saline. The skin edges were reapproximated with 4-0 nylon suture. The wound was infiltrated with some 1% lidocaine with epinephrine for postop pain control and a sterile dressing was applied. The patient appears to have tolerated the procedure well and with no complications. All digits were well vascularized conclusion of the case.
[2025-08-25 11:56] VITALS: BMI 33.7
[2025-08-25 12:07] VITALS: BP 138/67; PULSE 71; RESP 18; TEMP 36.2; O2SAT 99
[2025-08-25] MEDS: Lactated Ringers 1,000 ML 100 ML IVCONT (12:15)
--- NOTE | 2025-08-25 13:15 | P.CONAN_ITS ---
Documented by User: Linda Denise NP 08/19/25 11:46 HPI - Anesthesia Eval Consult details Narrative: 54 yr old male for right release ulnar nerve [facility] Active Problems Active Problems: All Active Problems Carpal tunnel syndrome of right wrist (Acute) Neuropathy of right ulnar nerve at wrist (Acute) Injury of ulnar nerve at wrist and hand level of right arm, initial encounter (Acute) Contracture of muscle of right hand (Acute ~03/14/25) Past Medical History Medical History (Updated 08/19/25 @ 09:49 by Tia Canchola RN) Injury of ulnar nerve at wrist Elevated cholesterol HTN (hypertension) Hx of bladder cancer Social History Social History e-Cigarette/Vaping Use: Former Use Use of substances other than those prescribed or required for medical reasons: No Advance Directives: No Advance Directives Information Provided: Yes Current occupational status: employed 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 Meds Allergies Allergy/AdvReac Type Severity Reaction Status Date / Time No Known Allergies Allergy Verified 08/25/25 11:54 Home Medications ?Medication ?Instructions ?Recorded ?Confirmed ?Last Taken ?Type atorvastatin 10 mg tablet (Lipitor) 10 mg PO BEDTIME 0 03/25/25 08/25/25 08/24/25 History diltiazem HCl 30 mg tablet 30 mg PO TID 03/25/2508/2508/25/25 07:00 History (Cardizem) Exam Height,Weight and Vital Signs: Height 6 ft Weight 111.13 kg Documented by User: Pearl Escobar DO 08/25/25 13:44 [facility] Past Medical History Medical History (Updated 08/19/25 @ 09:49 by Tia Canchola RN) Injury of ulnar nerve at wrist Elevated cholesterol HTN (hypertension) Hx of bladder cancer Family History Family history of problems with anesthesia: No Surgical History History of Problems with Anesthesia: No Social History Social History e-Cigarette/Vaping Use: Former Use Use of substances other than those prescribed or required for medical reasons: No Advance Directives: No Advance Directives Information Provided: Yes Current occupational status: employed 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 Meds Allergies Allergy/AdvReac Type Severity Reaction Status Date / Time No Known Allergies Allergy Verified 08/25/25 11:54 Home Medications ?Medication ?Instructions ?Recorded ?Confirmed ?Last Taken ?Type atorvastatin 10 mg tablet (Lipitor) 10 mg PO BEDTIME 0 03/25/25 08/25/25 08/24/25 History diltiazem HCl 30 mg tablet 30 mg PO TID 03/25/2508/2508/25/25 07:00 History (Cardizem) Exam Exam Date and Time: 08/25/25 1320 Height,Weight and Vital Signs: Height 6 ft Weight 111.13 kg Vital Signs Temperature 97.1 F 08/25/25 12:07 Pulse Rate 71 08/25/25 12:07 Respiratory Rate 18 08/25/25 12:07 Blood Pressure 138/67 08/25/25 12:07 Pulse Oximetry 99 08/25/25 12:07 Oxygen Delivery Method Room Air 08/25/25 12:07 Temperature 97.1 F 08/25/25 12:07 Pulse Rate 71 08/25/25 12:07 Respiratory Rate 18 08/25/25 12:07 Blood Pressure 138/67 08/25/25 12:07 Pulse Oximetry 99 08/25/25 12:07 Oxygen Delivery Method Room Air 08/25/25 12:07 Airway Mallampati Class: II TM Dist: >3cm Neck ROM: Full Denture: Upper Partial: Lower Heart: S1S2 Lungs: CTAB Assessment and Plan Assessment Anesthesia Assessment: Anesthesia Plan Discussed and Chart Reviewed Final Anesthetic Review Family History of Problems with Anesthesia: No History of Problems with Anesthesia: No NPO: Yes ASA Class: II Final Preanesthetic Review: No Changes in Pt Med Stat, Meds/Allgs Chart Reviewed, Consent Obtained/Reviewed and Anes Risks/Benef Reviewed Patient Risk: Low Procedure Risk: Low Anesthetic Plan Anesthetic Plan: GA and Agree w/ Assess. and Plan Disposition: Standard PACU
[2025-08-25 15:11] VITALS: BP 136/80; PULSE 85; RESP 15; TEMP 36.9; O2SAT 98
[2025-08-25 15:16] VITALS: BP 130/79; PULSE 74; RESP 14; O2SAT 99
[2025-08-25 15:21] VITALS: BP 123/74; PULSE 97; RESP 14; O2SAT 100
[2025-08-25 15:26] VITALS: BP 128/71; PULSE 84; RESP 9; O2SAT 97
[2025-08-25 15:41] VITALS: BP 132/74; PULSE 70; RESP 12; TEMP 36.9; O2SAT 100
== END 2025-08-25 16:20 | disposition home or self-care (01) ==
PROVIDERS: PCP Family Medicine; Visit Provider Orthopaedic Surgery
PROC: (CPT 64718; principal; 2025-08-25 13:00)
DX: G56.21 Lesion of ulnar nerve, right upper limb (principal); M25.531 Pain in right wrist; R20.0 Anesthesia of skin; G56.01 Carpal tunnel syndrome, right upper limb; Z87.828 Personal history of other (healed) physical injury and trauma; Y99.0 Civilian activity done for income or pay; Z85.51 Personal history of malignant neoplasm of bladder; Z87.81 Personal history of (healed) traumatic fracture; Z87.891 Personal history of nicotine dependence; Z98.890 Other specified postprocedural states
CPT/HCPCS: 64719; J0131; J0690; J1100; J2003; J2004; J2250; J2405; J2704; J3010

== ENCOUNTER → 2025-08-25 11:10 | Outpatient (BNV) | payer OTHER, SELFPAY | PROVIDERS: PCP Family Medicine; Visit Provider Orthopaedic Surgery | DX: G56.21 Lesion of ulnar nerve, right upper limb (principal) | CPT/HCPCS: 64719 ==

== ENCOUNTER 2025-08-27 19:32 | Emergency (ER) | payer OTHER, SELFPAY ==
[2025-08-27 19:42] VITALS: BP 146/70; PULSE 101; RESP 20; TEMP 36.9; O2SAT 96; BMI 33.2
--- NOTE | 2025-08-27 19:43 | ED_ITS ---
HPI - General Adult General Chief complaint: Extremity Problem Stated complaint: fever (right hand surgery 08/25/25) Time Seen by Provider: 08/27/25 22:39 History of Present Illness ED Provider: YONATHAN HPI narrative: This is a pleasant 54-year-old male who comes in several days after an ulnar nerve repair at the wrist here at [facility] who feels myalgias, mild generalized headache, and subjective fever. He does not have increasing pain, changing color or perfusion of the digits. The hand remains wrapped in the post-surgical dressing. He primarily was concerned about the possibility of a post-operative infection despite not having localized symptoms to the hand. 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 Head: Atraumatic Eyes: Anicteric, Normal conjunctiva. ENT: Moist mucosa, no pallor. Neck: Supple. Respiratory: Breathing comfortably, No distress.Clear to auscultation bilaterally, symmetric chest expansion, No wheeze, rales, ronchi. Cardiovascular: Regular rate and rhythm. No murmurs or rub. Well perfused periphery, warm extremities. No edema. Abdominal: Soft, no objective distension. No palpable masses or obvious organomegaly. No focal tenderness, no guarding, no rebound tenderness or other peritoneal findings. : No flank tenderness. Neuro: Alert. Gross movement of all extremities intact. Vital signs: See flowsheet The wrist dressing was not removed. Vital Signs: Vital Signs - 24 hr 08/27/25 19:42 Temperature 98.5 F Pulse Rate 101 H Respiratory Rate 20 Blood Pressure 146/70 H Pulse Oximetry 96 Oxygen Delivery Method Room Air BMI result Body Mass Index 33.2 Course Course Course Narrative: RME: 54-year-old male status post right hand surgery on the 25 of August presents to ED for subjective fever today he states hives 145. Patient states fatigue and fever no other symptoms. No drainage from right hand surgery. Labs x-ray ordered Medical Decision Making Medical Decision Making MDM Narrative: Medical Decision Makin-year-old male 2 days postop from right ulnar nerve surgery here with hand surgery. Two days ago in the evening started feeling mild sore throat myalgias fever. Subjective fluctuating fever throughout the day. No right hand pain feels like it is healing well the surgical site is wrapped. Flu test positive likely explains the patient's symptoms. There was no leukocytosis he declined dressing removal for wound assessment I have advised him to follow up as previously scheduled with the orthopedic team. Preliminary Favored Differential Diagnosis: Viral syndrome/influenza, less likely surgical complication among additional considered etiologies Testing Interpreted Independently: ?See below for details Radiology or Lab testing Results Reviewed: ?See below for details Consults: ?See below for details Independent Historians/External Chart Reviews: ?See below for details Social Determinants of Health Impacting MDM/Planning: ?See below for details Lab Data 08/27/25 19:55 08/27/25 19:55 Labs: Lab Results 08/27/25 08/27/25 Range/Units 19:55 19:56 WBC 6.5 (4.8-10.8) X10*3/uL RBC 4.44 L (4.60-5.80) X10*6/uL Hgb 13.7 L (14.0-18.0) g/dl Hct 40.3 L (42.0-52.0) % MCV 90.8 (80.0-98.0) fL MCH 30.9 (27.0-33.0) pg MCHC 34.0 (31.0-36.0) g/dl RDW 11.9 (11.0-16.0) % Plt Count 167 (160-400) X10*3/uL MPV 9.8 (9.4-12.4) fL Immature Gran % (Auto) 0.6 H (0.0-0.4) % Neut % (Auto) 81.1 H (45-73) % Lymph % (Auto) 6.6 L (20-40) % [place] % (Auto) 10.3 (2-11) % Eos % (Auto) 0.8 (0-4) % Baso % (Auto) 0.6 (0-2) % Lymph # (Auto) 0.4 L (1.2-4.9) X10*3/uL [place] # (Auto) 0.7 (0.1-1.2) X10*3/uL Eos # (Auto) 0.1 (0.0-0.4) X10*3/uL Baso # (Auto) 0.0 (0.0-0.2) X10*3/uL Abs Immat Gran (auto) 0.04 H (0.00-0.03) X10*3/uL Absolute Neuts (auto) 5.3 (2.0-8.3) x10*3/uL Absolute Nucleated RBC 0.000 (0.0-0.012) X10*3/uL Nucleated RBC % (auto) 0.0 (0.0-0.2) /100WBC Sodium 135 (135-145) mmol/L Potassium 3.8 (3.3-5.1) mmol/L Chloride 102 (96-108) mmol/L Carbon Dioxide 23 (22-29) mmol/L Anion Gap 14 (12-20) BUN 13 (9-16) mg/dL Creatinine 0.85 (0.5-1.4) mg/dL Estim Creat Clear Calc 129.3 Estimated GFR > 60 Random Glucose 111 (60-115) mg/dL Lactic Acid 1.4 (0.5-2.0) mmol/L Calcium 9.8 (8.4-10.2) mg/dL Total Bilirubin 0.7 (0.0-1.0) mg/dL AST 19 (5-37) U/L ALT 31 (0-40) U/L Alkaline Phosphatase 65 (39-117) U/L Total Protein 7.3 (6.5-8.0) g/dL Albumin 4.8 (3.5-5.0) g/dL Influenza Type A (PCR) POSITIVE A (Negative) Influenza Type B (PCR) NEGATIVE (Negative) RSV RNA Qual (PCR) NEGATIVE (Negative) SARS-CoV-2 RNA (RT-PCR) NEGATIVE (Negative) Discharge Plan Discharge Clinical Impression: Influenza A Patient Disposition: Home, Self-Care Instructions: Influenza (ED) Additional Instructions: Continue with your previously scheduled postoperative follow up. Supportive therapy at home with fever medicine fluid and rest. Isolate herself, we recommend wearing mask when out in public Prescriptions: No Action hydrocodone-acetaminophen 5-325 mg tablet 1 tab PO Q4-6H PRN (Reason: pain) Qty: 15 0RF Rx Instructions: Partial Fill upon patient request. atorvastatin [Lipitor] 10 mg tablet 10 mg PO BEDTIME diltiazem HCl [Cardizem] 30 mg tablet 30 mg PO TID Interventions: ED Discharge Assessment Last Done: 08/27/25 23:01 Discharge Date/Time: 08/27/25 23:02 Print Language: Sami
[2025-08-27 20:10] LABS: MANUAL DIFF FLAG NO
[2025-08-27 20:12] LABS: Hematocrit 40.3 % (42.0-52.0); Hemoglobin 13.7 g/dl (14.0-18.0); Imm Gran Abs Auto 0.04 X10*3/uL (0.00-0.03); Imm Gran Pct Auto 0.6 % (0.0-0.4); Lymphocytes Absolute Auto 0.4 X10*3/uL (1.2-4.9); Mean Corpuscular HGB Conc 34.0 g/dl (31.0-36.0); Mean Corpuscular Hemoglobin 30.9 pg (27.0-33.0); Mean Corpuscular Volume 90.8 fL (80.0-98.0); NRBC Abs Auto 0.000 X10*3/uL (0.0-0.012); NRBC Pct Auto 0.0 /100WBC (0.0-0.2); Platelet Count 167 X10*3/uL (160-400); Red Blood Count 4.44 X10*6/uL (4.60-5.80); White Blood Count 6.5 X10*3/uL (4.8-10.8)
[2025-08-27 20:26] LABS: Alanine Aminotransferase 31 U/L (0-40); Albumin Level 4.8 g/dL (3.5-5.0); Alkaline Phosphatase 65 U/L (39-117); Anion Gap 14 (12-20); Aspartate Amino Transferase 19 U/L (5-37); Blood Urea Nitrogen 13 mg/dL (9-16); Calcium 9.8 mg/dL (8.4-10.2); Carbon Dioxide 23 mmol/L (22-29); Chloride 102 mmol/L (96-108); Creatinine Clr Calc Pharmacy 129.3; Estimated Glomerular Filt Rate > 60; Potassium 3.8 mmol/L (3.3-5.1); Sodium 135 mmol/L (135-145); Total Protein 7.3 g/dL (6.5-8.0)
[2025-08-27 20:48] LABS: Resp Syncy Virus RNA Qual PCR NEGATIVE (Negative); SARS COV2 PCR INHOUSE NEGATIVE (Negative)
[2025-08-27 23:01] VITALS: BP 146/70; PULSE 101; RESP 20; TEMP 36.9; O2SAT 96
--- OUTSIDE RECORDS SUMMARY | 2025-08-27 23:04 | XMS_ITS | Encounter Summary ---
Author Organization [facility] Address [address] [place] [address] Care Team Providers Care Shoveler Name Role Phone Physician, Pcp Unknown Primary Care Provider Sharyn vailable Encounter Details Date Type Department Care Team (Late st Contact Info) Description 01/03/[address] [facility] - Main Lab [address] [place] [address] Hunter James MD [address] [facility] [address] [place] [address] Malignant neoplasm of lateral wall [...] AM EDT) Final Diagnosis A. Urine, Voided, ([id number]): Negative for high grade urothelial carcinoma. Results of UroVysion fluorescence in situ hybridization (FISH) testing: CEP3: Normal CEP7: Normal CEP17: Normal LSI 9p21: Normal Interpretation: Normal profile Controls stained appropriately. Note: The results are intended as a screening device and should be interpreted in association with other clinical and pathological findings. 01/07/2025 4:35 PM EDT [facility] at 1635 EDT Clinical Information Malignant neoplasm of lateral wall of bladder C67.2 Urine Cytology/FISH (now) 01/07/2025 4:35 PM EDT [facility] Gross Description A. Urine, Voided, ([id number]): Received one ThinPrep slide for cytology and one ThinPrep slide for UroVysion FISH 01/07/2025 4:35 PM EDT [facility] Disclaimer Unless otherwise specified, all tissue is 10% NB formalin fixed and paraffin embedded. Technical pathology services provided by [facility] at [address] [place] [address] [address], [place] [address] (CLIA #[id number]/Galilea Delacruz MD, Powder Loader) 01/07/2025 4:35 PM EDT [facility] Tissue Urine specimen from urethra / Unknown 12/31/2024 01/03/2025 1:26 PM EDT us Hunter James MD LAB PATHOLOGY ORDERABLES Final Result [facility] [address] [place] [address], documented in this encounter Visit Diagnoses Diagnosis Malignant neoplasm of lateral wall of bladder (CMS/HCC V24, CMS/HCC V28) Malignant neoplasm of lateral wall of urinary bladder documented in this encounter Care Teams Shoveler Relationship Specialty Start Date End Date Physician, Pcp Unknown PCP - General 01/03/25 documented as of this encounter
--- OUTSIDE RECORDS SUMMARY | 2025-08-27 23:04 | XMS_ITS | Clinical Summary ---
Author Organization 299 [facility] Address [address] [place] [address] Phone Care Team Providers Care Perinatal Coordinator Name Role Phone Physician, Pcp Unknown [...] patient's age to complete this topic Insurance [facility] Care Teams Perinatal Coordinator Relationship Specialty Start Date End Date Physician, Pcp Unknown PCP - General 01/03/25
--- OUTSIDE RECORDS SUMMARY | 2025-08-27 23:04 | XMS_ITS | Encounter Summary ---
Author Organization [facility] Address [address] [place] [address] Care Team Providers Care Vacuum Filter Operator Name Role Phone Physician, Pcp Unknown Primary Care Provider Sharyn vailable Encounter Details Date Type Department Care Team (Late st Contact Info) Description 10/04/2024 Lab Requisition [facility] - Main Lab [address] [place] [address] Hunter James MD [address] [facility] [address] [place] [phone] Malignant neoplasm of lateral wall of bladder [...] AM EST) Final Diagnosis A. Urine, Voided, ([id number]): Negative for high grade urothelial carcinoma Results of UroVysion fluorescence in situ hybridization (FISH) testing: CEP3: Normal CEP7: Normal CEP17: Normal LSI 9p21: Normal Interpretation: Normal profile Controls stained appropriately. Note: The results are intended as a screening device and should be interpreted in association with other clinical and pathological findings. 10/15/2024 11:[address] [facility] at 1109 EST Clinical Information Malignant neoplasm of lateral wall of bladder C67.2 Cytology/Urine FISH (now) 10/15/2024 11:[address] [facility] Gross Description A. Urine, Voided, ([id number]): Received 1 TP (CYTO) 1 TP (FISH) 10/15/2024 11:[address] [facility] Disclaimer Unless otherwise specified, all tissue is 10% NB formalin fixed and paraffin embedded. Technical pathology services provided by [facility] at [address] [facility] [address], [place] [address] (CLIA #[id number]/Galilea Delacruz MD, Continuous Improvement Lead) 10/15/2024 11:09 AM [facility] Tissue Urine specimen from urethra / Unknown 09/27/2024 10/04/2024 2:10 PM EST us Hunter James MD LAB PATHOLOGY ORDERABLES Final Result [facility] [address] [place] [address], documented in this encounter Visit Diagnoses Diagnosis Malignant neoplasm of lateral wall of bladder (CMS/HCC V24, CMS/HCC V28) Malignant neoplasm of lateral wall of urinary bladder documented in this encounter Care Teams Vacuum Filter Operator Relationship Specialty Start Date End Date Physician, Pcp Unknown PCP - General 01/03/25 documented as of this encounter
--- OUTSIDE RECORDS SUMMARY | 2025-08-27 23:04 | XMS_ITS | Encounter Summary ---
Author Organization [facility] Address [address] [place] [address] Care Team Providers Care Healthcare Management Consultant Name Role Phone Physician, Pcp Unknown Primary Care Provider Sharyn vailable Encounter Details Date Type Department Care Team (Late st Contact Info) Description 04/15/2025 Lab Requisition [facility] - Main Lab [address] [place] [address] Hunter James MD [address] [facility] [address] [place] [phone] Malignant neoplasm of lateral wall of bladder [...] of lateral wall of bladder (CMS/HCC V24, CMS/[facility] V28) documented in this encounter Results * Non-gynecologic cytology (04/07/2025 12:00 AM EDT) Final Diagnosis Urine, Voided, [id number]: Negative for high grade urothelial carcinoma. Results of UroVysion fluorescence in situ hybridization (FISH) testing: CEP3: Normal CEP7: Normal CEP17: Normal LSI 9p21: Normal Interpretation: Normal profile Controls stained appropriately. Note: The results are intended as a screening device and should be interpreted in association with other clinical and pathological findings. 04/28/2025 9:06 AM EDT [facility] at 0906 EDT Specimen A Adequacy Satisfactory for evaluation 04/28/2025 9:06 AM EDT [facility] Clinical Information Malignant neoplasm of lateral wall of bladder C67.2 Urine Cytology/FISH (now) 04/28/2025 9:06 AM EDT [facility] Gross Description A. Urine, Voided, [id number]: Received one ThinPrep slide for cytology and one ThinPrep slide for UroVysion FISH 04/28/2025 9:06 AM EDT [facility] Disclaimer Unless otherwise specified, all tissue is 10% NB formalin fixed and paraffin embedded. Technical pathology services provided by [facility] at [address] [place] [address] [address] [address] (CLIA #[id number]/Galilea Delacruz MD, Machine Puller) 04/28/2025 9:06 AM EDT [facility] Urine Urine specimen from urethra / Unknown 04/07/2025 04/15/2025 2:02 PM EDT us Hunter James MD LAB CYTOLOGY ORDERABLES Final Result [facility] [address] [place] [address], documented in this encounter Visit Diagnoses Diagnosis Malignant neoplasm of lateral wall of bladder (CMS/HCC V24, CMS/HCC V28) Malignant neoplasm of lateral wall of urinary bladder documented in this encounter Care Teams Healthcare Management Consultant Relationship Specialty Start Date End Date Physician, Pcp Unknown PCP - General 01/03/25 documented as of this encounter
== END 2025-08-27 23:02 | disposition home or self-care (01) ==
LOC: HO.ED 23:01
PROVIDERS: Physician Assistant; Emergency Provider Emergency Medicine; PCP Family Medicine
DX: J10.1 Influenza due to other identified influenza virus with other respiratory manifestations (principal); Z98.890 Other specified postprocedural states; Z79.899 Other long term (current) drug therapy
CPT/HCPCS: 80053; 83605; 85025; 87040; 87637; 99282; 99283

== ENCOUNTER 2025-09-10 09:41 | Outpatient (AMB) | payer OTHER, SELFPAY ==
--- NOTE | 2025-09-10 09:47 | A.OFFVIS_ITS ---
Vital Signs 09/10/25 09:50 Height 6 ft Weight 245 lb BMI 33.2 Intake Visit Reasons: PO RT ulnar nerve release 08/25/25 AR Intake Note: Abena is a 54 year old right hand dominant male who presents today for a Post- Operative Visit status post Right Ulnar Nerve Release, DOS: 08/25/[address] Santillan. At today's visit he reports that the right wrist is feeling better but the right ring and pinky fingers feel numb. Patient reports he is doing well. Denies numbness, tingling, finger locking. Patient is not taking any pain medications at this time. Sutures removed and st tico strips applied. Allergies No Known Allergies Allergy (Verified 08/27/25 19:44) HPI HPI PO RT ulnar nerve release 08/25/25 AR: Details: Abena is a 54 year old right hand dominant male who presents today for a Post- Operative Visit status post Right Ulnar Nerve Release, DOS: 08/25/[address] Santillan. At today's visit he reports that the right wrist is feeling better but the right ring and pinky fingers feel numb occasionally, but sensation has improved ?approximately 70%? of the way to prior to symptoms. Patient reports he is doing well. Denies numbness, tingling, finger locking. Patient is not taking any pain medications at this time. Sutures removed and steri strips applied. 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 Review of Systems Const All systems reviewed & are unremarkable except as noted in HPI and below Physical Exam Vital Signs: BMI result Body Mass Index 33.2 Const General: cooperative, healthy appearing and no acute distress Orientation/consciousness: patient oriented x3 HEENT Head: Yes normocephalic and Yes atraumatic Eyes EOM: EOMs intact bilaterally Resp Effort & Inspection: normal respiratory effort and able to speak in complete sentences Cardio Jugular venous distension: no JVD Skin General skin exam: turgor normal Rashes: no rashes Neuro General: patient oriented x3 Extrem Other: Evaluation of Right Upper Extremity: The patient is alert, oriented, and in no acute distress Neuro: Decreased sensation in the ulnar nerve distribution of the right hand including the small finger and ulnar half of the ring finger. Normal sensation to all other digits in the right hand today. Normal sensation in the tips of all digits of the left hand today. No thenar or intrinsic wasting. Good APB muscle firing and good finger cross. Vascular: Cap refill brisk ROM: He can make a fist and extend all their digits. Skin: Well approximated and well healing incision site noted over Guyon's canal of right wrist No lacerations or abrasions. General: No Ecchymosis. No Erythema or evidence of infection. Psych Appearance: grossly normal Affect: normal affect Attitude: cooperative Assessment & Plan Assessment & Plan (1) Neuropathy of right ulnar nerve at wrist: Code(s): G56.21 - Lesion of ulnar nerve, right upper limb Category: Medical Plan 1. Status post right ulnar nerve release at the wrist DOS 08/25/2025 With good but incomplete symptomatic resolution postoperatively Patient appears to be recovering well postoperatively Patient is educated about the typical recovery course No under water times one-week, 2 lb weight limit x2 weeks Patient appears to be recovering very well Patient is educated and worrisome signs and symptoms, and should call us if they experience any of these, including but not limited to redness, swelling, increased pain, and discharge Patient understands this and is amenable to this plan Follow-up in 4 weeks for reassessment, sooner with any acute concerns Coding Level of Care Code Global (91413) Diagnoses Neuropathy of right ulnar nerve at wrist G56.21
[2025-09-10 09:50] VITALS: BMI 33.2
--- OUTSIDE RECORDS SUMMARY | 2025-09-10 11:17 | XMS_ITS | Encounter Summary ---
Author Organization [facility] Address [address] [place] [address] Care Team Providers Care Home Appliance Installer Name Role Phone Physician, Pcp Unknown Primary Care Provider Sharyn vailable Encounter Details Date Type Department Care Team (Late st Contact Info) Description 01/03/[address] [facility] - Main Lab [address] [facility] [place] [address] Hunter James MD [address] [facility] 120 [place] [address] Malignant neoplasm of lateral wall [...] AM EDT) Final Diagnosis A. Urine, Voided, ([id number]): Negative for high grade urothelial carcinoma. Results of UroVysion fluorescence in situ hybridization (FISH) testing: CEP3: Normal CEP7: Normal CEP17: Normal LSI 9p21: Normal Interpretation: Normal profile Controls stained appropriately. Note: The results are intended as a screening device and should be interpreted in association with other clinical and pathological findings. 01/07/2025 4:35 PM EDT [facility] at 1635 EDT Clinical Information Malignant neoplasm of lateral wall of bladder C67.2 Urine Cytology/FISH (now) 01/07/2025 4:35 PM EDT [facility] Gross Description A. Urine, Voided, ([id number]): Received one ThinPrep slide for cytology and one ThinPrep slide for UroVysion FISH 01/07/2025 4:35 PM EDT [facility] Disclaimer Unless otherwise specified, all tissue is 10% NB formalin fixed and paraffin embedded. Technical pathology services provided by [facility] at [address] [place] [address] [address], [place] [address] (CLIA #[id number]/Galilea Delacruz MD, Machine Hamper Maker) 01/07/2025 4:35 PM EDT [facility] Tissue Urine specimen from urethra / Unknown 12/31/2024 01/03/2025 1:26 PM EDT us Hunter James MD LAB PATHOLOGY ORDERABLES Final Result [facility] [address] [place] [address], documented in this encounter Visit Diagnoses Diagnosis Malignant neoplasm of lateral wall of bladder (CMS/HCC V24, CMS/HCC V28) Malignant neoplasm of lateral wall of urinary bladder documented in this encounter Care Teams Home Appliance Installer Relationship Specialty Start Date End Date Physician, Pcp Unknown PCP - General 01/03/25 documented as of this encounter
--- OUTSIDE RECORDS SUMMARY | 2025-09-10 11:17 | XMS_ITS | Encounter Summary ---
Author Organization [facility] Address [address] [place] [address] Care Team Providers Care Senior Informatica Developer Name Role Phone Physician, Pcp Unknown Primary Care Provider Sharyn vailable Encounter Details Date Type Department Care Team (Late st Contact Info) Description 04/15/2025 Lab Requisition [facility] - Main Lab [address] [facility] [place] [address] Hunter James MD [address] [facility] 120 [place] [phone] Malignant neoplasm of lateral wall of bladder [...] of lateral wall of bladder (CMS/HCC V24, CMS/[facility] V28) documented in this encounter Results * Non-gynecologic cytology (04/07/2025 12:00 AM EDT) Final Diagnosis Urine, Voided, [id number]: Negative for high grade urothelial carcinoma. Results of UroVysion fluorescence in situ hybridization (FISH) testing: CEP3: Normal CEP7: Normal CEP17: Normal LSI 9p21: Normal Interpretation: Normal profile Controls stained appropriately. Note: The results are intended as a screening device and should be interpreted in association with other clinical and pathological findings. 04/28/2025 9:[address] [facility] at 0906 EDT Specimen A Adequacy Satisfactory for evaluation 04/28/2025 9:[address] [facility] Clinical Information Malignant neoplasm of lateral wall of bladder C67.2 Urine Cytology/FISH (now) 04/28/2025 9:[address] [facility] Gross Description A. Urine, Voided, [id number]: Received one ThinPrep slide for cytology and one ThinPrep slide for UroVysion FISH 04/28/2025 9:[address] [facility] Disclaimer Unless otherwise specified, all tissue is 10% NB formalin fixed and paraffin embedded. Technical pathology services provided by [facility] at [address] [place] [address] [address], [place] [address] (CLIA #[id number]/Galilea Delacruz MD, Flat Screen Worker) 04/28/2025 9:[address] [facility] Urine Urine specimen from urethra / Unknown 04/07/2025 04/15/2025 2:02 PM EDT us Hunter James MD LAB CYTOLOGY ORDERABLES Final Result [facility] [address] [place] [address], documented in this encounter Visit Diagnoses Diagnosis Malignant neoplasm of lateral wall of bladder (CMS/HCC V24, CMS/HCC V28) Malignant neoplasm of lateral wall of urinary bladder documented in this encounter Care Teams Senior Informatica Developer Relationship Specialty Start Date End Date Physician, Pcp Unknown PCP - General 01/03/25 documented as of this encounter
--- OUTSIDE RECORDS SUMMARY | 2025-09-10 11:17 | XMS_ITS | Clinical Summary ---
Author Organization 299 [facility] Address [address] [place] [address] Phone Care Team Providers Care Electrical Sign Servicer Name Role Phone Physician, Pcp Unknown Primary [...] patient's age to complete this topic Insurance [facility] Care Teams Electrical Sign Servicer Relationship Specialty Start Date End Date Physician, Pcp Unknown PCP - General 01/03/25
--- OUTSIDE RECORDS SUMMARY | 2025-09-10 11:17 | XMS_ITS | Encounter Summary ---
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 Urine, Voided, ([id number]): Negative for high grade urothelial carcinoma Results of UroVysion fluorescence in situ hybridization (FISH) testing: CEP3: Normal CEP7: Normal CEP17: Normal LSI 9p21: Normal Interpretation: Normal profile Controls stained appropriately. Note: The results are intended as a screening device and should be interpreted in association with other clinical and pathological findings. 10/15/2024 11:09 AM EST [facility] at 1109 EST Clinical Information Malignant neoplasm of lateral wall of bladder C67.2 Cytology/Urine FISH (now) 10/15/2024 11:09 AM EST [facility] Gross Description A. Urine, Voided, ([id number]): Received 1 TP (CYTO) 1 TP (FISH) 10/15/2024 11:09 AM EST [facility] Disclaimer Unless otherwise specified, all tissue is 10% NB formalin fixed and paraffin embedded. Technical pathology services provided by [facility] at [address] [facility] [address], [place] [address] (CLIA #[id number]/Galilea Delacruz MD, Growth Media Mixer Mushroom) 10/15/2024 11:09 AM [facility] Tissue Urine specimen from urethra / Unknown 09/27/2024 10/04/2024 2:10 PM EST us Hunter James MD LAB PATHOLOGY ORDERABLES Final Result [facility] [address] [place] [address], documented in this encounter Visit Diagnoses Diagnosis Malignant neoplasm of lateral wall of bladder (CMS/HCC V24, CMS/HCC V28) Malignant neoplasm of lateral wall of urinary bladder documented in this encounter Care Teams Rotor Casting Machine Operator Relationship Specialty Start Date End Date Physician, Pcp Unknown PCP - General 01/03/25 documented as of this encounter
== END 2025-09-10 10:17 | disposition home or self-care (01) ==
LOC: HO.HOS 09:42
PROVIDERS: PCP Family Medicine
DX: G56.21 Lesion of ulnar nerve, right upper limb (principal)
CPT/HCPCS: 99024

== ENCOUNTER → 2025-09-10 09:41 | Outpatient (BNVA) | payer OTHER, SELFPAY | PROVIDERS: PCP Family Medicine | DX: G56.21 Lesion of ulnar nerve, right upper limb (principal); Z98.890 Other specified postprocedural states; Z48.02 Encounter for removal of sutures | CPT/HCPCS: 99212 ==